=== PATIENT | female | born 1935 | race Caucasian/White ===

== ENCOUNTER 2020-01-26 12:30 | Outpatient (CLI) | payer MEDICARE, SELFPAY ==
[2020-01-26 13:19] LABS: Basophils % 0.5 %; Eosinophils # 0.3 10^3/uL (0.0-0.8); Eosinophils % 4.9 %; Hemoglobin 11.9 g/dL (11.5-15.3); Lymphocytes # 1.3 10^3/uL (0.8-4.8); Lymphocytes % 20.3 %; Mean Corpuscular HGB Conc 31.3 g/dL (30.0-36.0); Mean Corpuscular Hemoglobin 29.2 pg (28.0-34.0); Mean Corpuscular Volume 93.1 fL (81-99); Mean Platelet Volume 10.7 fL (7.4-10.4); Monocytes # 0.5 10^3/uL (0.2-0.9); Monocytes % 8.5 %; Neutrophils # 4.2 10^3/uL (1.8-7.7); Neutrophils % 65.6 %; Nucleated Red Blood Cells % 0 %; Platelet Count 307 10^3/cmm (130-400); Red Blood Count 4.08 10^6/uL (4.1-5.3); Red Cell Distribution Width 13.2 % (12.1-15.1); White Blood Count 6.3 10^3/uL (4.0-10.0)
[2020-01-26 13:38] LABS: Alanine Aminotransferase 10 U/L (0-33); Albumin Level 3.6 g/dL (3.5-5.2); Alkaline Phosphatase 160 IU/L (35-105); Anion Gap 16.7 (5-19); Aspartate Amino Transferase 19 U/L (0-32); Blood Urea Nitrogen 16 mg/dL (8-23); Calcium 8.9 mg/dL (8.5-10.5); Carbon Dioxide 22 mmol/L (22-29); Chloride 106 mmol/L (98-107); Globulin 3.1 g/dL (1.3-4.6); Glucose 89 mg/dL (65-115); Osmolality Calculated 288 mOsm/kg (285-295); Potassium 3.7 mmol/L (3.5-5.1); Sodium 141 mmol/L (136-145); Total Bilirubin 0.5 mg/dL (0.15-1.2); Total Protein 6.7 g/dL (6.6-8.7)
--- NOTE | 2020-01-26 16:59 | ONC FU_ITS ---
Dr. Latham follow up note Patient: Bonnie Pa Unit #: [id number]: 1935 Dicatated By: Roscoe Latham M.D.Date of Visit:Jan 26, 2020 Onc Med Follow-up/Prog Note History of Present Illness: Mrs. Bonnie Pa, is a 84-year-old female who recently experienced some pain in her right breast and also noticed a mass in her right breast. Went to see her primary care physician underwent bilateral mammogram on 05/25/2018 which showed 3.3 x 2.7 x 2.3 cm mass in the retroareolar area which was previously seen on CT scan of chest done on 05/12/2018 subsequently on 06/03/2018 she underwent breast biopsy which confirmed invasive ductal carcinoma with papillary features it was strongly ER/VT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 and on 06/25/2018 she underwent right breast lumpectomy with right sentinel lymph node biopsy which showed invasive ductal carcinoma p T2, pN1a (sn) and MX ER/VT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 margins clear. Oncotype DX score 0 started on Arimidex 1 mg by mouth daily on 07/29/2018, s/p postlumpectomy radiation Chronic urine tract infection, managed by PMD She has completed her postlumpectomy radiation therapy on 10/21/2018 tolerated well, and now tolerating Arimidex well Underwent bilateral diagnostic mammogram on 01/03/2019 in [place] for right breast questionable abnormality and it showed ,other than postoperative changes in the right breast there is no other changes and no change is seen in the left breast. No suspicious mass or calcification seen. Came for follow-up, complaining of progressive shortness of breath, dyspnea on exertion, patient has history of congestive heart failure in the past and now being treated with Lasix but patient take it on as-needed basis and now with progressive lower extremity edema and has not seen cardiology in the recent past. Other than that denies any hemoptysis or hematemesis denies any chest pain or palpitation. Denies any fever chills denies any diarrhea or constipation. Denies any weight loss. Medications: Aspirin 1 Tablet (of 81 mg) Tablet, chewable Oral daily, Levothyroxine Sodium 1 Tablet Oral daily, TraMADol HCl 1 (50 mg) Tablet Oral PRN Allergies: Cefuroxime Axetil, Cipro, Flagyl, Keflex, Macrobid, Penicillins, and Sulfa Antibiotics. Review of Systems: Review of Systems is not available for this patient. Vital Signs: Performed on Jan 26, 2020 14:36 Height - 62.00 in Weight - 170.2 lbs (HIGH) BSA - 1.78 sq.m BMI - 31.13 (HIGH) Temperature - 98.8 F Pulse - 62 /min Respiration - 20 /min BP - 130/65 mm(hg) O2 Sat - 96 % Pain - 0 Performance Status: 1 - No physically strenuous activity, but ambulatory and able to carry out light or sedentary work (e.g. office work, light house work). (ECOG) Physical Examination: Respiratory - Poor air entry, few bibasilar rales, Cardiovascular - Regular rate and rhythm of heart, Gastrointestinal - Abdomen, soft, bowel sounds present, Extremities - 2+ edema bilaterally. Lab/Imaging: Most recent lab results are not available for this patient. Impression: Invasive ductal carcinoma right breast status post lumpectomy with sentinel lymph node biopsy done on 06/25/2018 final pathology report showed pT2, (3.1) pN1a (positive sentinel lymph node with 3 mm microscopic lesion with no extracapsular) MX stage Ib ER positive 96%, VT +97%, HER-2/nellie 1+ , negative Oncotype DX score reported on on 08/16/2018 was 0 started on Arimidex 1 mg by mouth daily for 5 years on 07/29/2018. s/p Postlumpectomy radiation therapy Completed on 10/21/2018 History of bilateral pulmonary embolism diagnosed in 2005 status post anticoagulation for 2 to 3 years History of congestive heart failure with chronic lower extremity edema treated with diuretics Plan: Discussed with patient regarding her labs white blood count 6.3 hemoglobin 11.9 hematocrit 38 platelets 307,000 CMP within normal limits Clinically, patient is doing reasonably well but now concerned about progressive dyspnea on exertion and lower extremity edema, patient has history of congestive heart failure in the past treated with diuretics patient said she take it on as-needed basis and watch her fluid intake. 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 As far as breast cancer is concerned patient has no signs symptoms suggestive of recurrence of disease, tolerating Arimidex well along with vitamin D and calcium supplement. Her lab work-up is within normal range. We will also obtain follow-up mammogram and she will return to clinic after chest x-ray and mammogram. Patient was advised in case she has any worsening of symptoms she need to go to hospital immediately. Signed By: Roscoe Latham M.D. <<Signature on File>>
== END 2020-01-26 12:31 | disposition home or self-care (01) ==
LOC: ONCMED 12:35
PROVIDERS: PCP Family Medicine; Visit Provider Internal Medicine Hematology & Oncology
DX: C50.111 Malignant neoplasm of central portion of right female breast (principal); C77.3 Secondary and unspecified malignant neoplasm of axilla and upper limb lymph nodes; Z17.0 Estrogen receptor positive status [ER+]; R06.00 Dyspnea, unspecified; R60.0 Localized edema; Z86.79 Personal history of other diseases of the circulatory system; Z79.811 Long term (current) use of aromatase inhibitors; Z86.711 Personal history of pulmonary embolism; Z79.01 Long term (current) use of anticoagulants
CPT/HCPCS: 36415; 80053; 85025; 99214

== ENCOUNTER 2020-02-13 08:43 | Outpatient (CLI) | payer MEDICARE, SELFPAY ==
--- NOTE | 2020-02-13 08:49 | MM_ITS ---
WS: [id number] Bilateral diagnostic digital mammogram, 02/13/2020 Clinical Data: HX OF BREAST CA Comparison: 06/03/2018, 05/25/2018. Findings: The 2.9 cm density in the lateral aspect of the right breast is no longer present. There is residual scarring which measures 1.0 x 3.0 cm. There is skin thickening over the right breast which is a possi ble result of therapy. No spiculated masses or clustered calcifications are seen. The left breast is normal and shows fat replacement. The lymph nodes in the right and left axilla are unchanged. MM/[place] [id number] Impression: 1. Probable residual scar in the lateral aspect of the right breast without radha dence of recurrence. 2. Skin thickening of the right breast is result of therapy. 3. Negative left breast. BIRADS: 2-Benign FOLLOW UP: 1 Year Follow-up The CAD lumber checker was used.
--- NOTE | 2020-02-13 09:40 | XR_ITS ---
WS: [id number] PROCEDURE: XR chest 2V* [id number] CLINICAL INFORMATION: BASELINE/PROGRESSIVE SHORTNESS OF BREATH/CHF COMPARISON: None. FINDINGS: Heart: Cardiomegaly. Tortuous thoracic aorta. Lungs: Chronic emphysematous changes. No acute pulmonary infiltrates. Elevation right hemidiaphragm Bones: Thoracic curve convex left. Cholecystectomy clips. XR/XR chest 2V* [id number] IMPRESSION: 1. Chronic emphysematous changes. No acute pulmonary infiltrates. 2. Thoracic scoliosis convex left.
== END 2020-02-13 08:44 | disposition home or self-care (01) ==
LOC: RADSHAW 08:48
PROVIDERS: PCP Family Medicine; Visit Provider Internal Medicine Hematology & Oncology
DX: Z85.3 Personal history of malignant neoplasm of breast (principal); R06.02 Shortness of breath; I50.9 Heart failure, unspecified; M41.84 Other forms of scoliosis, thoracic region
CPT/HCPCS: 71046; 77066; 83880; 85379

== ENCOUNTER 2020-02-16 13:15 | Outpatient (CLI) | payer BC, MEDICARE, SELFPAY ==
--- NOTE | 2020-02-16 14:22 | ONC FU_ITS ---
Dr. Latham follow up note Patient: Bonnie Pa Unit #: [id number]: 1935 Dicatated By: Roscoe Latham M.D.Date of Visit:Feb 16, 2020 Onc Med Follow-up/Prog Note History of Present Illness: Mrs. Bonnie Pa, is a 84-year-old female who recently experienced some pain in her right breast and also noticed a mass in her right breast. Went to see her primary care physician underwent bilateral mammogram on 05/25/2018 which showed 3.3 x 2.7 x 2.3 cm mass in the retroareolar area which was previously seen on CT scan of chest done on 05/12/2018 subsequently on 06/03/2018 she underwent breast biopsy which confirmed invasive ductal carcinoma with papillary features it was strongly ER/ME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 and on 06/25/2018 she underwent right breast lumpectomy with right sentinel lymph node biopsy which showed invasive ductal carcinoma p T2, pN1a (sn) and MX ER/ME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 margins clear. Oncotype DX score 0 started on Arimidex 1 mg by mouth daily on 07/29/2018, s/p postlumpectomy radiation Chronic urine tract infection, managed by PMD She has completed her postlumpectomy radiation therapy on 10/21/2018 tolerated well, and now tolerating Arimidex well Underwent bilateral diagnostic mammogram on 01/03/2019 in [place] for right breast questionable abnormality and it showed ,other than postoperative changes in the right breast there is no other changes and no change is seen in the left breast. No suspicious mass or calcification seen. Mammogram done on February 13, 2020 showed probable scar tissue in the lateral aspect of the right breast without evidence of recurrence. Negative left breast. Chest x-ray done on February 13, 2020 showed chronic emphysematous changes no acute pulmonary infiltrate Came for follow-up, denies any specific complaints except persistent dyspnea on exertion, patient has seen cardiology recently, work-up is in progress and her chest x-ray showed no acute infiltrate but chronic emphysematous changes. Patient denies any fever chills denies any nausea or vomiting denies any chest pain denies any new bony pains. Tolerating Arimidex/vitamin D/calcium well Medications: Anastrozole 1 Tablet (of 1 mg) Oral daily, Aspirin 1 Tablet (of 81 mg) Tablet, chewable Oral daily, Levothyroxine Sodium 1 Tablet Oral daily, TraMADol HCl 1 (50 mg) Tablet Oral PRN Allergies: Cefuroxime Axetil, Cipro, Flagyl, Keflex, Macrobid, Penicillins, and Sulfa Antibiotics. Review of Systems: Review of Systems is not available for this patient. Vital Signs: Performed on Feb 16, 2020 13:49 Height - 62.00 in Weight - 169.4 lbs (LOW) BSA - 1.78 sq.m BMI - 30.98 (HIGH) Temperature - 99.1 F (HIGH) Pulse - 58 /min (LOW) Respiration - 20 /min BP - 131/64 mm(hg) O2 Sat - 97 % Pain - 0 Performance Status: 2 - Ambulatory/capable of all self-care, unable to perform any work activities. Up and about more than 50% of waking hours. (ECOG) Physical Examination: Respiratory - Poor air entry otherwise clear, Cardiovascular - Regular rate and rhythm of heart, Gastrointestinal - Soft, bowel sounds present, Extremities - Trace edema bilaterally. Lab/Imaging: Test performed on Jan 26, 2020 12:55 Sodium 141 mmol/L Potassium 3.7 mmol/L Chloride 106 mmol/L CO2 22 mmol/L Anion Gap 16.7 BUN 16 mg/dL Creatinine 1.0 mg/dL Cr Clearance (Est) 52.86 mL/min Glucose 89 mg/dL Calcium 8.9 mg/dL Protein, Total 6.7 g/dL Albumin 3.6 g/dL Globulin 3.1 g/dL Bilirubin, Total 0.5 mg/dL ALT (SGPT) 10 U/L AST (SGOT) 19 U/L Alkaline Phosphatase 160 IU/L WBC 6.3 10 3/uL RBC 4.08 10 6/uL HGB 11.9 g/dL HCT 38.0 % MCV 93.1 fL MCH 29.2 pg MCHC 31.3 g/dL RDW 13.2 % Platelet Count 307 10 3/cmm MPV 10.7 fL Neutrophils 4.2 10 3/uL Lymphocytes 1.3 10 3/uL Monocytes 0.5 10 3/uL Eosinophils 0.3 10 3/uL Basophils 0.0 10 3/uL Neutrophil % 65.6 % Lymphocyte % 20.3 % Monocyte % 8.5 % Eosinophil % 4.9 % Basophils % 0.5 % NRBC % 0 % Impression: Invasive ductal carcinoma right breast status post lumpectomy with sentinel lymph node biopsy done on 06/25/2018 final pathology report showed pT2, (3.1) pN1a (positive sentinel lymph node with 3 mm microscopic lesion with no extracapsular) MX stage Ib ER positive 96%, ME +97%, HER-2/nellie 1+ , negative Oncotype DX score reported on on 08/16/2018 was 0 started on Arimidex 1 mg by mouth daily for 5 years on 07/29/2018. s/p Postlumpectomy radiation therapy Completed on 10/21/2018 History of bilateral pulmonary embolism diagnosed in 2005 status post anticoagulation for 2 to 3 years History of congestive heart failure with chronic lower extremity edema treated with diuretics Plan: Discussed with patient regarding her chest x-ray report as well as mammogram which was done on February 13, 2020, mammogram was unremarkable except chronic posttreatment change in the right breast and follow-up in 1 year was recommended, chest x-ray showed no acute infiltrates but chronic emphysematous change and cardiomegaly. Patient was referred to cardiology for evaluation of being evaluated for congestive heart failure. As far as breast cancer is concerned, no signs symptom suggestive of recurrence of disease, patient is tolerating Arimidex/vitamin D/calcium well, will continue same and she will return to clinic in 6 months with CBC CMP. Signed By: Roscoe Latham M.D. <<Signature on File>>
== END 2020-02-16 13:16 | disposition home or self-care (01) ==
LOC: ONCMED 13:20
PROVIDERS: PCP Family Medicine; Visit Provider Internal Medicine Hematology & Oncology
DX: C50.011 Malignant neoplasm of nipple and areola, right female breast (principal); I50.9 Heart failure, unspecified; Z17.0 Estrogen receptor positive status [ER+]; Z79.811 Long term (current) use of aromatase inhibitors; Z79.82 Long term (current) use of aspirin; Z92.3 Personal history of irradiation; Z87.440 Personal history of urinary (tract) infections; Z86.711 Personal history of pulmonary embolism
CPT/HCPCS: 99214

== ENCOUNTER 2020-03-06 12:59 | Outpatient (CLI) | payer MEDICARE, SELFPAY ==
--- NOTE | 2020-03-06 13:30 | USCV_ITS ---
Bonnie Pa Age: 84 Gender: F : 1935 Exam Date: 03/06/2020 13:31 Ordering Phys: Yarelis Araiza MD ([email or web address]) Technologist: Roman Martell [place] [facility] [place] Indication: SOB BP: 125 / 75 HR: 67 Rhythm: Sinus Technical Quality: Good MEASUREMENTS (Male / Female) Normal Values 2D ECHO LV Diastolic Diameter PLAX 4.2 cm 4.2 - 5.9 / 3.9 - 5.3 cm LV Systolic Diameter PLAX 2.0 cm IVS Diastolic Thickness 1.1 cm 0.6 - 1.0 / 0.6 - 0.9 cm IVS Systolic Thickness 1.6 cm LVPW Diastolic Thickness 1.2 cm 0.6 - 1.0 / 0.6 - 0.9 cm LVPW Systolic Thickness 1.3 cm LVOT Diameter 2.0 cm LV Ejection Fraction 2D Teich 83.1 % LV Ejection Fraction MOD 2C 69.1 % LV Ejection Fraction 2C AL 69.2 % LA Diameter 4.7 cm LA Width 3.8 cm LA Height 5.1 cm RA Width 3.5 cm RA Height 5.3 cm Aorta at Sinotubular Diameter 0.8 cm M-MODE LV Diastolic Diameter MM 5.5 cm 4.2 - 5.9 / 3.9 - 5.3 cm LV Systolic Diameter MM 4.3 cm LV Ejection Fraction MM Teich 44.4 % IVS Diastolic Thickness MM 1.0 cm 0.6 - 1.0 / 0.6 - 0.9 cm IVS Systolic Thickness MM 1.1 cm LVPW Diastolic Thickness MM 1.2 cm 0.6 - 1.0 / 0.6 - 0.9 cm LVPW Systolic Thickness MM 1.9 cm RV Diastolic Diameter MM 1.5 cm Aortic Annulus Diameter 3.1 cm LA Ao Ratio MM 1.6 MV E Point Septal Separation 1.2 cm DOPPLER AV Peak Velocity 154.0 cm/s LVOT Peak Velocity 104.0 cm/s AV Area Cont Eq vti 2.0 cm squared AV Area Cont Eq pk 2.2 cm squared MV Area PHT 5.0 cm squared Mitral E to A Ratio 0.7 MV E' Velocity 9.0 cm/s Mitral E to MV E' Ratio 8.5 Mitral E to LV E' Lateral Ratio 8.9 Mitral E to LV E' Septal Ratio 8.2 TR Peak Velocity 308.0 cm/s TR Peak Gradient 37.9 mmHg TV Peak E Velocity 145.0 cm/s Right Atrial Pressure 3.0 mmHg Pulmonary Artery Systolic Pressu 40.9 mmHg PV Peak Velocity 120.0 cm/s FINDINGS Left Ventricle Normal left ventricular cavity size. Normal left ventricular systolic function. No regional wall motion abnormalities. Left ventricular ejection fraction is estimated at 60 %. Grade I/IV diastolic dysfunction (abnormal relaxation filling pattern), normal to mildly elevated filling pressures. Right Ventricle The right ventricle is normal in size and function. Moderate pulmonary hypertension, RVSP 40.9 mmHg. Right Atrium The right atrium is normal in size. Left Atrium Moderately increased left atrial size. Mitral Valve Mildly thickened mitral valve. No mitral valve stenosis. Mild mitral valve regurgitation. Aortic Valve Moderate aortic valve calcification. No aortic valve regurgitation. No aortic valve stenosis. Tricuspid Valve Structurally normal tricuspid valve without significant stenosis or regurgitation. Pulmonic Valve Structurally normal pulmonic valve without significant stenosis. There is no pulmonic regurgitation. Pericardium Normal pericardium without effusion. Aorta Normal ascending aorta dimension. CONCLUSIONS 1-Normal left ventricular cavity size. Normal left ventricular systolic function. No regional wall motion abnormalities. Left ventricular ejection fraction is estimated at 60 %. Grade I/IV diastolic dysfunction (abnormal relaxation filling pattern), normal to mildly elevated filling pressures. 2-Moderate aortic valve calcification. No aortic valve regurgitation. No aortic valve stenosis. 3-Mildly thickened mitral valve. No mitral valve stenosis. Mild mitral valve regurgitation. 4-Moderately increased left atrial size. 5-There is no pericardial effusion. 6-The right ventricle is normal in size and function. Moderate pulmonary hypertension, RVSP 40.9 mmHg. 7-There is no pericardial effusion. 8-Right atrial pressure is around 5 mm of mercury. 9-There are no prior echocardiogram studies to compare. Yarelis Araiza MD (Electronically Signed) Final Date: 07 March 2020 19:54 S
--- NOTE | 2020-03-06 14:15 | USCV_ITS ---
Bonnie Pa Age: 84 Gender: F : 1935 Exam Date: 03/06/2020 13:06 Ordering Phys: Yarelis Araiza MD ([email or web address]) Technologist: Dilan Villafuerte [place] [facility] [place]ication: DVT PROCEDURES: Venous duplex imaging was performed in bilateral lower extremities. The following venous structures were evaluated: common femoral vein, profunda vein, proximal portion of the greater saphenous vein, superficial femoral vein, and the popliteal vein. In addition, the posterior tibial and peroneal trunk were evaluated. Serial compression, augmentation maneuvers, and spectral Doppler flow evaluation were performed. FINDINGS: There is no DVT present bilaterally. There is a partial clot noted in the right gsv below the knee and at [place]. Partial contraction of thrombus. No evidence of thrombus noted within any other vessel examined today. CONCLUSIONS There is evidence of partial right lower extremity superficial vein thrombosis. Maybe subacute as thrombus appears retraced. No DVT bilateral lower extremities. Ring Rolling Machine Operator attempted to call report without success at time of exam. Dr. Maddi Nunez DO (Electronically Signed) Final Date: 06 March 2020 14:05 S
== END 2020-03-06 13:00 | disposition home or self-care (01) ==
LOC: US 13:01
PROVIDERS: PCP Family Medicine; Visit Provider Internal Medicine Cardiovascular Disease
DX: I50.9 Heart failure, unspecified (principal); I82.409 Acute embolism and thrombosis of unspecified deep veins of unspecified lower extremity; R06.02 Shortness of breath; I08.0 Rheumatic disorders of both mitral and aortic valves; I27.20 Pulmonary hypertension, unspecified
CPT/HCPCS: 93306; 93970

== ENCOUNTER → 2020-04-16 09:00 | Outpatient (BNVA) | payer MEDICARE, SELFPAY | PROVIDERS: PCP Family Medicine; Visit Provider Internal Medicine | DX: Z11.59 Encounter for screening for other viral diseases (principal); R06.02 Shortness of breath | CPT/HCPCS: 87635 ==

== ENCOUNTER 2020-04-18 10:46 | Outpatient (CLI) | payer MEDICARE, SELFPAY ==
--- NOTE | 2020-04-18 10:54 | CT_ITS ---
WS: [id number] CT CHEST WITHOUT INTRAVENOUS CONTRAST HISTORY: exertional shortness of breath, s/p radiation therapy, history of breast cancer. TECHNIQUE: Contiguous 5 mm axial imaging performed on the thorax. Coronal and sagittal reformats are submitted. All CT scans at [facility] use at least one of these dose optimization techniq ues: automated exposure control; mA and/or kV adjustment per patient size (includes targeted exams wh ere dose is matched to clinical indication); or iterative reconstruction. CONTRAST: None DLP: 453.12 mGy.cm COMPARISON: No similar studies. Chest radiograph 02/13/2020 Lungs and central airway: Mild pulmonary hyperexpansion. There is mild biapical pleural thickening an d scarring. Subpleural minimal distal airways thickening the RIGHT upper lobe. Groundglass attenuatio n with a few central horn solid nodules at the RIGHT middle lobe with atelectasis. Additional groundg lass attenuation in the superior segment LEFT lower lobe. Pleura: Normal. No pleural effusion. Heart and pericardium: Moderate enlargement of the cardiac chambers. No pericardial effusion. Mediastinum and fanny: No mediastinum or hilar adenopathy. Vessels: Mild atherosclerosis and ectasia aorta. Pulmonary artery is top normal size. Chest wall and lower neck: Linear scar in the RIGHT breast. Upper abdomen: Small hiatal hernia. Prior cholecystectomy. Parapelvic cyst superior LEFT kidney. No a drenal mass. Osseous structures: No osteoblastic or osteolytic disease. CT/CT chest wo con [id number] IMPRESSION: 1. Mixture of mild groundglass and mixed consolidations in the RIGHT upper, RI GHT middle and LEFT lower lobes. End airways endobronchial disease or viral pne umonitis should be considered as etiologies. 2. No evidence for metastatic disease. 3. Moderate cardiac enlargement. 4. Atherosclerosis aorta. 5. Prior cholecystectomy.
--- NOTE | 2020-04-18 11:40 | PFTS_ITS ---
Date of Study:04/18/20 Date of Dictation: MECHANICS: Forced vital capacity (FVC) is normal. Forced expiratory volume in one second (FEV1) is normal. FEV1/FVC is normal. FLOW VOLUME LOOP: Mild scooping at lower lung volumes. LUNG VOLUMES: Not measured DIFFUSING CAPACITY FOR CARBON MONOXIDE: Normal INTERPRETATION: The postbronchodilator spirometry is normal. There is significant postbronchodilator response. Lung volumes are not measured. Gas exchange (DLCO) is normal. MTDD
[2020-04-18 15:05] VITALS: O2SAT 93; O2SAT 98
== END 2020-04-18 10:47 | disposition home or self-care (01) ==
LOC: RT 10:48
PROVIDERS: PCP Family Medicine; Visit Provider Internal Medicine Pulmonary Disease
DX: J43.9 Emphysema, unspecified (principal); R06.02 Shortness of breath; Z85.3 Personal history of malignant neoplasm of breast; I70.0 Atherosclerosis of aorta; I51.7 Cardiomegaly
CPT/HCPCS: 71250; 94060; 94726; J7611

== ENCOUNTER → 2020-07-06 09:18 | Outpatient (BNVA) | payer MEDICARE, SELFPAY | PROVIDERS: PCP Family Medicine; Visit Provider Nurse Practitioner Family | DX: Z20.828 Contact with and (suspected) exposure to other viral communicable diseases (principal); J06.9 Acute upper respiratory infection, unspecified | CPT/HCPCS: 87635 ==

== ENCOUNTER 2020-07-12 07:25 | Outpatient (CLI) | payer MEDICARE, SELFPAY ==
[2020-07-12 07:32] VITALS: BMI 28.3
--- NOTE | 2020-07-12 07:56 | ECG_ITS ---
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 The perfusion scan will be documented separately. DATA: Baseline heart rate was 59 beats per minute. Baseline blood pressure was 159/97 millimeters of mercury. Target heart rate was 137. Maximum heart rate achieved was 74. which was 54 % of the predicted target heart rate. Maximum blood pressure was 161/97 millimeters of mercury. The reason for ending the test was completion of the protocol. The patient did not experience any symptoms. ELECTROCARDIOGRAM: BASELINE: Sinus bradycardia. Normal axis. Otherwise, no ST-T changes suggestive of ischemia noted. No arrhythmia noted. EXERCISE: After Lexiscan injection, no ST-T changes suggestive of ischemic noted. No arrhythmia noted. CONCLUSION: Please note due to baseline abnormality of the EKG specificity and sensitivity of the EKG portion of LexiScan MIBI stress test will be low 1. EKG not suggestive of ischemia 2. Lexiscan injection unremarkable. 3. Perfusion scan will be documented separately. Electronically Signed On 07-12-2020 18:26:35 ALTO SINGER by ANALI GOMEZ [email or web address]
--- NOTE | 2020-07-12 07:56 | NMCV_ITS ---
NM katie perf SPECT r/s* [id number] Bonnie Pa Age: 85 Gender: F : 1935 Exam Date: 07/12/2020 08:19 Ordering Phys: Rolo Reynolds M.D ([email or web address]) Technologist: REECE Roman Exam Location: [facility] Indications: SOB STRESS TEST [facility] IMAGE PROTOCOL Rest/Stress 1 Lexiscan Day Radiopharmaceutical Dose (mCi) Administration Site Administered by Rest: Tc-99m 10.8 IV REECE Roman Sestamibi Stress:Tc-99m 32.3 IV REECE Roman Sestamibi Rest: 12-Jul-2020 60 Discovery 630 Stress: 12-Jul-2020 45 Discovery 630 0.4mg Lexiscan. Images obtained in supine and prone position. SPECT RESULTS Technical Quality: Good Raw Data Analysis: Normal Image Corrections: No attenuation or motion correction applied Summed Stress Score: 11 Summed Rest Score: 3 Summed Difference Score: 8 PERFUSION FINDINGS Small size perfusion abnormality of mild severity of apical inferior and apical lateral james on rest images with decreased tracer uptake in basal to mid inferolateral, mid inferior and apical lateral james on supine stress images. However on prone stress images there is somewhat improved tracer uptake in the basal inferolateral wall. FUNCTIONAL RESULTS (calculated via Gated SPECT) Stress Image LV EF (%): 69 Stress EDV (mL):68 TID: 0.82 Stress ESV (mL):21 FUNCTIONAL FINDINGS: The left ventricle is normal in size. Transient Ischemia Dilatation of 0.82. There is normal left ventricular systolic function. The left ventricular ejection fraction is normal with a value of 69%. There is normal left ventricular wall thickening. Normal end-diastolic and end-systolic volumes IMPRESSIONS 1. Small sized perfusion abnormality of mild severity of apical inferior and apical lateral james with reversibility noted in mid inferior, mid inferolateral and apical lateral james. This may represent small area of ischemia in circumflex/right coronary artery territory. 2. Overall left ventricular systolic function is normal with regional wall motion abnormalities. 3. The left ventricular ejection fraction is normal with a value of 69%. 4. No prior similar studies to compare. Micki Ring MD (Electronically Signed) Final Date: 17 July 2020 13:00 S
[2020-07-12] MEDS: regadenoson 0.4 Mg/5 ml Syringe IVP (10:33)
[2020-07-12 10:43] VITALS: BP 161/83; PULSE 59
== END 2020-07-12 07:26 | disposition home or self-care (01) ==
PROVIDERS: PCP Family Medicine; Visit Provider Internal Medicine Cardiovascular Disease
DX: R06.02 Shortness of breath (principal)
CPT/HCPCS: 78452; A9500; J2785

== ENCOUNTER 2020-08-24 12:44 | Outpatient (CLI) | payer MEDICARE, SELFPAY ==
[2020-08-24 13:22] LABS: Basophils % 0.3 %; Eosinophils # 0.2 10^3/uL (0.0-0.8); Eosinophils % 3.1 %; Hematocrit 42.2 % (37.0-47.0); Hemoglobin 13.2 g/dL (11.5-15.3); Lymphocytes # 1.4 10^3/uL (0.8-4.8); Lymphocytes % 19.8 %; Mean Corpuscular HGB Conc 31.3 g/dL (30.0-36.0); Mean Corpuscular Hemoglobin 29.3 pg (28.0-34.0); Mean Corpuscular Volume 93.8 fL (81-99); Mean Platelet Volume 10.3 fL (7.4-10.4); Monocytes # 0.5 10^3/uL (0.2-0.9); Monocytes % 7.8 %; Neutrophils # 4.68 10^3/uL (1.8-7.7); Neutrophils % 68.7 %; Nucleated Red Blood Cells % 0 %; Platelet Count 311 10^3/cmm (130-400); Red Cell Distribution Width 12.9 % (12.1-15.1); White Blood Count 6.8 10^3/uL (4.0-10.0)
[2020-08-24 13:42] LABS: Alanine Aminotransferase 9 U/L (0-33); Albumin Level 3.5 g/dL (3.5-5.2); Alkaline Phosphatase 191 IU/L (35-105); Aspartate Amino Transferase 19 U/L (0-32); Blood Urea Nitrogen 16 mg/dL (8-23); Calcium 9.2 mg/dL (8.5-10.5); Carbon Dioxide 24 mmol/L (22-29); Chloride 106 mmol/L (98-107); Globulin 3.5 g/dL (1.3-4.6); Glucose 103 mg/dL (65-115); Osmolality Calculated 293 mOsm/kg (285-295); Sodium 141 mmol/L (136-145); Total Bilirubin 0.5 mg/dL (0.15-1.2)
[2020-08-24 13:44] LABS: Anion Gap 15.1 (5-19); Potassium 4.1 mmol/L (3.5-5.1)
== END 2020-08-24 12:45 | disposition home or self-care (01) ==
PROVIDERS: PCP Family Medicine; Visit Provider Internal Medicine Hematology & Oncology
DX: C50.811 Malignant neoplasm of overlapping sites of right female breast (principal); C77.3 Secondary and unspecified malignant neoplasm of axilla and upper limb lymph nodes
CPT/HCPCS: 36415; 80053; 85025

== ENCOUNTER 2020-09-03 05:38 | Outpatient (CLI) | payer MEDICARE, SELFPAY ==
--- NOTE | 2020-09-04 09:16 | ONC FU_ITS ---
Dr. Latham follow up note Patient: Bonnie Pa Unit #: [id number]: 1935 Dicatated By: Roscoe Latham M.D.Date of Visit:Sep 03, 2020 Onc Med Follow-up/Prog Note History of Present Illness: Mrs. Bonnie Pa, is a 85-year-old female who recently experienced some pain in her right breast and also noticed a mass in her right breast. Went to see her primary care physician underwent bilateral mammogram on 05/25/2018 which showed 3.3 x 2.7 x 2.3 cm mass in the retroareolar area which was previously seen on CT scan of chest done on 05/12/2018 subsequently on 06/03/2018 she underwent breast biopsy which confirmed invasive ductal carcinoma with papillary features it was strongly ER/HI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 and on 06/25/2018 she underwent right breast lumpectomy with right sentinel lymph node biopsy which showed invasive ductal carcinoma p T2, pN1a (sn) and MX ER/HI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 margins clear. Oncotype DX score 0 started on Arimidex 1 mg by mouth daily on 07/29/2018, s/p postlumpectomy radiation Chronic urine tract infection, managed by PMD She has completed her postlumpectomy radiation therapy on 10/21/2018 tolerated well, and now tolerating Arimidex well Underwent bilateral diagnostic mammogram on 01/03/2019 in [place] for right breast questionable abnormality and it showed ,other than postoperative changes in the right breast there is no other changes and no change is seen in the left breast. No suspicious mass or calcification seen. Mammogram done on February 13, 2020 showed probable scar tissue in the lateral aspect of the right breast without evidence of recurrence. Negative left breast. Chest x-ray done on February 13, 2020 showed chronic emphysematous changes no acute pulmonary infiltrate Came for follow-up, denies any specific complaints, no fever chills, no nausea or vomiting, no diarrhea or constipation,, no new bony pains, no weight loss, appetite is good, occasionally hot flashes otherwise tolerating Arimidex well. As per patient she is being evaluated for coronary artery disease and she was told by Dr. Araiza that she may need coronary artery stent. Medications: Anastrozole 1 Tablet (of 1 mg) Oral daily, Aspirin 1 Tablet (of 81 mg) Tablet, chewable Oral daily, Levothyroxine Sodium 1 Tablet Oral daily, TraMADol HCl 1 (50 mg) Tablet Oral PRN Allergies: Cefuroxime Axetil, Cipro, Flagyl, Keflex, Macrobid, Penicillins, and Sulfa Antibiotics. Review of Systems: Review of Systems is not available for this patient. Vital Signs: Performed on Sep 03, 2020 10:10 Height - 62.00 in Weight - 175.8 lbs (HIGH) BSA - 1.81 sq.m BMI - 32.15 (HIGH) Temperature - 96.9 F (LOW) Pulse - 55 /min (LOW) Respiration - 18 /min BP - 142/74 mm(hg) (HIGH) O2 Sat - 95 % (LOW) Pain - 0 Fatigue - 9 Performance Status: 1 - No physically strenuous activity, but ambulatory and able to carry out light or sedentary work (e.g. office work, light house work). (ECOG) Physical Examination: Respiratory - Lungs are clear to auscultation, Cardiovascular - Regular rate and rhythm of heart, Gastrointestinal - Soft, bowel sounds present, Extremities - No visible edema or rash. Lab/Imaging: Most recent lab results are not available for this patient. Impression: Invasive ductal carcinoma right breast status post lumpectomy with sentinel lymph node biopsy done on 06/25/2018 final pathology report showed pT2, (3.1) pN1a (positive sentinel lymph node with 3 mm microscopic lesion with no extracapsular) MX stage Ib ER positive 96%, HI +97%, HER-2/nellie 1+ , negative Oncotype DX score reported on on 08/16/2018 was 0 started on Arimidex 1 mg by mouth daily for 5 years on 07/29/2018. s/p Postlumpectomy radiation therapy Completed on 10/21/2018 History of bilateral pulmonary embolism diagnosed in 2005 status post anticoagulation for 2 to 3 years History of congestive heart failure with chronic lower extremity edema treated with diuretics Plan: Discussed with patient regarding her labs white blood count 6.8 hemoglobin 13.2 hematocrit 42.3 platelets 311,000, CMP within normal limits Clinically, patient doing well with no new signs symptoms history of disease progression, tolerating daily Arimidex with vitamin D and calcium well, will continue to monitor and she will return to clinic in 6 months with follow-up mammogram Signed By: Roscoe Latham M.D. <<Signature on File>>
== END 2020-09-03 05:39 | disposition home or self-care (01) ==
LOC: ONCMED 05:40
PROVIDERS: PCP Family Medicine; Visit Provider Internal Medicine Hematology & Oncology
DX: C50.811 Malignant neoplasm of overlapping sites of right female breast (principal); C77.3 Secondary and unspecified malignant neoplasm of axilla and upper limb lymph nodes; Z17.0 Estrogen receptor positive status [ER+]; Z79.811 Long term (current) use of aromatase inhibitors; Z86.711 Personal history of pulmonary embolism; Z92.3 Personal history of irradiation
CPT/HCPCS: 99214

== ENCOUNTER → 2020-11-01 14:27 | Outpatient (BNVA) | payer MEDICARE, SELFPAY | PROVIDERS: PCP Family Medicine; Visit Provider Internal Medicine Cardiovascular Disease | DX: R06.02 Shortness of breath (principal); R07.2 Precordial pain; R94.39 Abnormal result of other cardiovascular function study | CPT/HCPCS: 80048; 85025; 85610; 87635 ==

== ENCOUNTER → 2020-11-02 00:01 | Outpatient (BNVA) | payer MEDICARE, SELFPAY | PROVIDERS: PCP Family Medicine; Visit Provider Internal Medicine Cardiovascular Disease | DX: R06.02 Shortness of breath (principal); R07.2 Precordial pain; R94.39 Abnormal result of other cardiovascular function study | CPT/HCPCS: 87635 ==

== ENCOUNTER 2020-11-05 07:27 | Emergency (ER) | payer MEDICARE, SELFPAY ==
[2020-11-05 07:32] VITALS: BP 194/80; PULSE 58; RESP 16; TEMP 36.4; O2SAT 95; BMI 28.3
--- NOTE | 2020-11-05 07:37 | XRR_ITS ---
PROCEDURE INFORMATION: Exam: XR Nasal Bones Exam date and time: 11/05/2020 8:07 AM Age: 85 years old Clinical indication: Pain and injury or trauma; Nose pain; Blunt trauma (contusions or hematomas); Injury date: 11/05/20; Injury details: Fall in parking lot; Additional info: Fall, pain TECHNIQUE: Imaging protocol: XR of the nasal bones. Views: De, bilateral lateral; 3 views COMPARISON: No relevant prior studies available. FINDINGS: Sinuses: Well aerated. No opacification. Nasal cavity/Septum: No nasal septal hematoma. Bones/joints: Nondisplaced nasal bone tip fracture. Soft tissues: Anterior nasal soft tissue swelling. XR/XR nasal bones min 3V [id number] IMPRESSION: Nondisplaced nasal bone tip fracture.
--- NOTE | 2020-11-05 07:55 | W.ED.FALL ---
HPI - Fall General: Chief Complaint: Fall Stated Complaint: fall Time Seen by Provider: 11/05/20 07:30 History of Present Illness: HPI Narrative: 85-year-old female who stumbled while coming into the hospital today fell forward and hit her nose. She denies any other injuries. She did have a little epistaxis initially that is already stopped by the time she arrived here. She was coming into the hospital to have an angiogram done she denies any chest pain or palpitations at the time I see her in the emergency room she said she feels fine. She has had multiple falls recently she is usually she falls backwards and think she either tripped on something or stumbled. She denies lightheadedness or dizziness. MD complaint: fall Onset (ago): minute(s) Fall from: standing Fall witnessed: yes, by family Place fall occurred: other (At hospital) Loss of consciousness: None Prolonged down time: no Symptoms prior to fall: none Context: tripped/slipped Severity: mild Quality: aching Associated symptoms-after fall: Denies abdominal pain, chest pain, confusion, difficulty walking, headache(s), hematuria, lightheadedness, neck pain, numbness, short of breath, vertigo or weakness Review of Systems Const: Denies: fever(s), chills, body aches, change in appetite, fatigue or malaise ENMT: Denies: throat pain, ear or mastoid pain, nasal discharge or nasal congestion Card: Denies: lightheadedness Resp: Denies: dyspnea, productive cough or non-productive cough GI: Denies: abdominal pain : Denies: hematuria Musc: Denies: neck pain Skin/Breast: Denies: rash or pruritus Neuro: Denies: headache(s), difficulty walking, vertigo or confusion PFS ED PFSH: Medical History Congestive heart failure History of breast cancer History of pulmonary embolism Lower extremity edema Shortness of Breath Family History Mother CAD (coronary artery disease) Sister Cancer Son Myocardial infarction Other Diabetes Social History Smoking and tobacco status: never smoked Second hand smoke exposure: Yes Smoking risk assessment/counseling performed?: Yes Alcohol intake: never Caregiver/support person: Yes Lives independently: Yes Household members: family Marital status: / Current occupational status: retired Pets and animals: Yes History of recent travel: No Current gender identity: Female Physical Exam Const: COMMON NORMALS: no acute distress GENERAL APPEARANCE: cooperative and comfortable ORIENTATION/CONSCIOUSNESS: Yes awake, Yes oriented to person, Yes oriented to place and Yes oriented to time HENMT: COMMON NORMALS: normocephalic, atraumatic, hearing grossly normal bilaterally, external ears normal, EAC's normal, TM's normal bilaterally, Normal nasal mucous membranes and turbinates present, moist oral mucous membranes and oropharynx normal HEAD & SCALP: normocephalic and atraumatic NOSE: Normal nasal mucous membranes and turbinates present EXTERNAL EAR: Yes external ears normal EXTERNAL AUDITORY CANAL: EAC's normal TYMPANIC MEMBRANE: TM's normal bilaterally Eye: COMMON NORMALS: Equal, round and reactive pupils present, EOMs intact bilaterally, conjunctivae normal and no scleral icterus CONJUNCTIVA: Yes conjunctivae normal PUPIL: Yes Equal, round and reactive pupils present Neck/C-Spine: COMMON NORMALS: full ROM, no lymphadenopathy, supple and no JVD OTHER: Spine cleared clinically Resp: COMMON NORMALS: normal respiratory effort, No retractions, No use of accessory muscles and clear to auscultation bilaterally AUSCULTATION: clear to auscultation bilaterally Cardio: COMMON NORMALS: no JVD, regular rate, regular rhythm and No murmurs present (Cardio) RATE: regular rate RHYTHM: regular rhythm GI: COMMON NORMALS: Soft to palpation and No hepatosplenomegaly present AUSCULTATION: Yes normoactive bowel sounds PALPATION: Yes Soft to palpation, No Tenderness to palpation present (GI), No Guarding due to palpation present (GI) and Yes No hepatosplenomegaly present Extremity: COMMON NORMALS: normal to inspection, capillary refill normal, no clubbing, cyanosis or edema, no calf tenderness and no pedal edema Neuro: SENSORIUM/ORIENTATION: Yes oriented to person, Yes oriented to place and Yes oriented to time Skin: COMMON NORMALS: no rashes or lesions noted GENERAL SKIN EXAM: no rashes or lesions noted Course Vital Signs: Vital signs: Vital Signs Temperature 97.5 F L 11/05/20 07:32 Pulse Rate 58 L 11/05/20 07:32 Respiratory Rate 16 11/05/20 07:32 Blood Pressure 194/80 11/05/20 07:32 Pulse Oximetry 95 11/05/20 07:32 MDM - Fall MDM Narrative: Medical decision making narrative: Mechanical fall. Incidental finding of minor nasal bone fracture with no deviation no deformity.. Patient was scheduled for a angiogram today but it is being rescheduled she had some epistaxis with the fall and she will need heparin for the angiogram which will create issues she will have to call and talk to Dr. Romero to get this rescheduled through his office I did discuss it with him today on the phone. Additionally her hypokalemia was treated with oral Lab Data: Labs: Lab Results 11/05/20 11/05/20 Range/Units 07:49 07:49 WBC 5.8 (4.0-10.0) 10^3/ uL RBC 4.66 (4.1-5.3) 10^6/u L Hgb 13.7 (11.5-15.3) g/dL Hct 43.0 (37.0-47.0) % MCV 92.3 (81-99) fL MCH 29.4 (28.0-34.0) pg MCHC 31.9 (30.0-36.0) g/dL RDW 13.2 (12.1-15.1) % Plt Count 331 (130-400) 10^3/c mm MPV 10.3 (7.4-10.4) fL Neut % (Auto) 69.6 % Lymph % (Auto) 17.5 % [place] % (Auto) 7.2 % Eos % (Auto) 5.5 % Baso % (Auto) 0.0 % Neut # (Auto) 4.07 (1.8-7.7) 10^3/u L Lymph # (Auto) 1.0 (0.8-4.8) 10^3/u L [place] # (Auto) 0.4 (0.2-0.9) 10^3/u L Eos # (Auto) 0.3 (0.0-0.8) 10^3/u L Baso # (Auto) 0.0 (0.0-0.1) 10^3/u L Nucleated RBC % (a uto) 0 % Nucleated RBCs # 0.0 /100WBC Sodium 142 (136-145) mmol/L Potassium 3.3 L (3.5-5.1) mmol/L Chloride 106 (98-107) mmol/L Carbon Dioxide 25 (22-29) mmol/L Anion Gap 14.3 (5-19) BUN 16 (8-23) mg/dL Creatinine 1.0 H (0.5-0.9) mg/dL GFR Calculation Not Reportable Glucose 118 H (65-115) mg/dL Calculated Osmolal ity 296 H (285-295) mOsm/k g Calcium 9.2 (8.5-10.5) mg/dL Discharge Plan Discharge Patient Disposition: Home Clinical Impression: Fall (on) (from) other stairs and steps, initial encounter, Hypokalemia, Epistaxis, Fracture of nasal bone Condition: Stable Prescriptions: No Action aspirin 325 mg tablet 325 mg PO DAILY RF: 0 tramadol 50 mg tablet 50 mg PO DAILY PRNRF: 0 levothyroxine 75 mcg capsule 75 mcg PO DAILY RF: 0 anastrozole 1 mg tablet 1 mg PO DAILY RF: 0 atorvastatin 10 mg tablet 10 mg PO DAILY RF: 0 Anoro Ellipta 62.5-25 mcg/actuation blister with device 1 inh INHALATION DAILY Qty: 14 RF: 5 hydrochlorothiazide 12.5 mg capsule 12.5 mg PO DAILY RF: 0 isosorbide mononitrate 30 mg tablet extended release 24 hr 15 mg PO BID Qty: 90 RF: 3 furosemide [Lasix] 20 mg tablet 20 mg PO DAILY PRN (Reason: edema) Qty: 30 RF: 5 potassium chloride 10 mEq capsule, extended release 10 meq PO DAILY PRN (Reason: replacement therapy) Qty: 30 RF: 5 Discharge Orders: Discharge ED (Routine); Ordered 11/05/20 Ordered By: Jaciel Chavis Referrals: Domingo Bowser [Primary Care Provider] - Discharge Diet: Usual diet Discharge Activity: Resume usual activity Patient Instructions: Opioid Safety Activity Restrictions/Additional Instructions: All Dr. Romero's office to reschedule your angiogram. Coding Level of Care Code ED Sales And Marketing Representative for Selvin Broussard NIH stroke score NIHSS Level Of Consciousness - 1a: 0 Level Of Consciousness Questions - 1b: Both Correct Level Of Consciousness Commands - 1c: Both Correct Best Gaze - 2: Normal Visual Hu - 3: No Visual Loss Facial Palsy - 4: Normal Motor Arm Right - 5: No Drift Motor Arm Left - 5: No Drift Motor Leg Right - 6: No Drift Motor Leg Left - 6: No Drift Limb Ataxia - 7: Absent Sensory - 8: Normal Best Language - 9: No Aphasia Dysarthia - 10: Normal Extinction And Inattention - 11: 0 Score Total Score: 0
[2020-11-05 08:18] LABS: Eosinophils # 0.3 10^3/uL (0.0-0.8); Eosinophils % 5.5 %; Hemoglobin 13.7 g/dL (11.5-15.3); Lymphocytes % 17.5 %; Mean Corpuscular HGB Conc 31.9 g/dL (30.0-36.0); Mean Corpuscular Hemoglobin 29.4 pg (28.0-34.0); Mean Corpuscular Volume 92.3 fL (81-99); Mean Platelet Volume 10.3 fL (7.4-10.4); Monocytes # 0.4 10^3/uL (0.2-0.9); Monocytes % 7.2 %; Neutrophils # 4.07 10^3/uL (1.8-7.7); Neutrophils % 69.6 %; Nucleated Red Blood Cells % 0 %; Platelet Count 331 10^3/cmm (130-400); Red Blood Count 4.66 10^6/uL (4.1-5.3); Red Cell Distribution Width 13.2 % (12.1-15.1); White Blood Count 5.8 10^3/uL (4.0-10.0)
[2020-11-05 08:36] LABS: Anion Gap 14.3 (5-19); Blood Urea Nitrogen 16 mg/dL (8-23); Calcium 9.2 mg/dL (8.5-10.5); Carbon Dioxide 25 mmol/L (22-29); Chloride 106 mmol/L (98-107); Glucose 118 mg/dL (65-115); Osmolality Calculated 296 mOsm/kg (285-295); Potassium 3.3 mmol/L (3.5-5.1); Sodium 142 mmol/L (136-145)
[2020-11-05] MEDS: potassium chloride oral liq 20 mEq/15 mL UDC 40 MEQ PO (10:06)
[2020-11-05 10:07] VITALS: BP 151/79; PULSE 58; RESP 20; TEMP 36.8; O2SAT 93
== END 2020-11-05 10:09 | disposition home or self-care (01) ==
PROVIDERS: Emergency Provider Family Medicine; PCP Family Medicine
DX: S02.2XXA Fracture of nasal bones, initial encounter for closed fracture (principal); R04.0 Epistaxis; E87.6 Hypokalemia; Z79.82 Long term (current) use of aspirin; I50.9 Heart failure, unspecified; Z85.3 Personal history of malignant neoplasm of breast; Z77.22 Contact with and (suspected) exposure to environmental tobacco smoke (acute) (chronic); W01.198A Fall on same level from slipping, tripping and stumbling with subsequent striking against other object, initial encounter; Y92.239 Unspecified place in hospital as the place of occurrence of the external cause
CPT/HCPCS: 70160; 80048; 85025; 99283

== ENCOUNTER 2020-11-13 08:55 | Day surgery (SDC) | payer MEDICARE, SELFPAY ==
[2020-11-13] VITALS (16 sets, daily range): BP systolic 114–181; BP diastolic 60–87; PULSE 56–78; RESP 16–18; TEMP 36.6–36.7; O2SAT 92–96; BMI 31.1
--- NOTE | 2020-11-13 09:00 | XACV_ITS ---
Ht: 160 cm Wt: 80 kg BSA: 1.91 m2 Gender: Female : 1935 Any Known Allergies: Other Exam Priority: Routine Procedure(s): Procedure Description: Diagnostic procedure Procedure Description: Left Heart Catheterization Procedure Description: Right Heart Catheterization Procedure Description: Left ventriculography Procedure Description: O2 saturation Procedure Description: Coronary Angiography Diagnostic Cath Status: Elective Diagnostic Findings * No significant disease noted in the Left Main, LAD, Circumflex, or RCA coronary arteries. * Coronary angiography shows right dominance. Conclusions 1. Right heart cath:RA mean 9 mmHgRV 34/-1PA mean 23mmHgPulmonary capillary wedge pressure. 2. No significant disease noted in the Left Main, LAD, Circumflex, or RCA coronary arteries. 3. Normal left ventricular systolic function. Ejection fraction of 50%. Recommendations * Usual post-cath care. Diagnostic RX Recommendation: medical therapy and/or counseling Ventriculography Ejection Fraction: 50.0 % Pressures Phase:Rest AO : 142 / 60 ( 93 ) @ 6:46:00 AM 161 / 69 ( 104 ) @ 6:49:00 AM 146 / 63 ( 92 ) @ 6:58:00 AM 142 / 63 ( 94 ) @ 6:58:00 AM LV : 155 / -8 / @ 6:55:00 AM 149 / -10 / @ 6:58:00 AM 147 / -11 / @ 6:58:00 AM RV : 34 / -1 / @ 6:39:00 AM PA : 38 / 13 ( 23 ) @ 6:38:00 AM RA : a wave = v wave = mean = 9 @ 6:42:00 AM O2 Content Phase:Rest PA : O2 Content O2: 64.3 @ 6:46:00 AM Saturations Phase:Rest AO : 90 @ 6:58:00 AM RA : 71 @ 6:58:00 AM RV : 63 @ 6:49:00 AM PA : 64 @ 6:46:00 AM Valves Phase:DefaultPhase AV : 0.0 @ 12:17:23 PM AV Mean Gradient: 0.0 @ 12:17:23 PM 0.0 @ 12:17:23 PM Clinical Evaluation EBL: 5mL-10mL Procedural Details Procedure Consent Obtained. Pre-Procedure Time Out. Identified patient by full name and date of as verbalized by the patient/guarantor. Does the consent match the physician's order: Yes. Accurate & Complete Informed Consent: Yes. Inpatient/Outpatient History & Physical on Chart: Yes. If H&P is completed, is and addenduem needed: No; If yes, is the addendum complete: N/A. Visualize and Verify Site with Patient/Guarantor: N/A. Relevant Radiology Images available: N/A. Pre-op teaching completed and patient verbalized understanding. The risks, benefits, and alternatives of sedation and/or procedure were discussed by physician. The patient agrees to continue. Procedure started. [facility] Clinical Fraility Score: 4: Vulnerable. Cad Design Engineer Indications: Other-abnormal stress test. Chest Pain Symptom Assessment: Atypical Angina. Cardiovascular Instability: No. Correct patient, site and procedure confirmed by cath team. PERRLA. Strong, equal hand data analysis assistant bilaterally. Lungs clear x 5 lobes. IV Site on Arrival: 20 gauge in the left anticubital. IV Fluids: 0.9% NaCl at KVO. 0 mL infused prior to wood and wood products labourer. Pre Procedural Pulses: bilateral dorsalis pedis was 2+. Pre Procedural Pulses: bilateral posterior tibial was 1+. Pre Procedural Pulses: right radial was 2+. Physician arrived. bilateral groins was prepped with chloroprep then draped in the usual sterile fashion. Baseline sample Acquired. HR: 56 BPM. Equipment: 6F - Femoral. Cardiac Cath Pack. ACIST Manifold Kit Model BT 2000. Heparinized Saline (2 units/mL), 1000 mL bag. Kit, Micropuncture. Physician arrived. Physician scrubbed in. Immediate Pre-Procedure Time Out. Correct Patient: Yes; Correct Procedure: Yes; Correct Site: Yes; Correct Patient Position: Yes; Correct Supplies: Yes; Dried Flammable Prep: Yes; Blood Products Available: N/A;. Lidocaine 1% infiltrated to the right groin. Venous access obtained with a micropuncture set. Arterial access obtained with micropuncture set. Wire and needle out. Arterial access obtained with micropuncture set. Cocoa-Faith MON catheter inserted through venous sheath. Cocoa-Faith out. A 5 tajik JL4 catheter in over wire through arterial sheath. Multiple views taken of left coronary artery. Catheter removed over the standard wire. A 5 tajik JR4 catheter in over wire. Multiple views taken of right coronary artery. Catheter removed over the standard wire. A 5 tajik Angled Pig catheter in over wire. EDP Sample taken: LV 155/-9,15; HR: 75 BPM; SpO2: 94%. LV gram performed in SEARS @ 10 mL/second for a total of 30 mL. EDP Sample taken: LV 149/-11,16; HR: 66 BPM; SpO2: 88%. Pullback taken: LV 147/-12,15; AO 146/63(92); Mean: 0mmHg, Peak to Peak: 0mmHg, SEP: 5sec/min; HR: 67 BPM; SpO2: 87%. Catheter removed over the standard wire. Hand injection to evaluate sheath position. Physician scrubbed out. A Manual Compression was successful obtaining hemostatsis at the Right Femoral artery insertion site. Arterial Sheath(s) removed and manual pressure held until hemostasis was achieved. Sterile 4x4 and Op-site applied to the puncture site. No oozing or hematoma noted. Post sheath removal instructions were given and the patient verbalized understanding. Contrast type used: Omnipaque 300 mgI/mL, 500 mL bottle. Post-op diagnosis: normal coronaries, normal RHC. Complications: none. Post Procedure: Pulses reassessed and unchanged. PERRLA. Strong, equal hand data analysis assistant bilaterally. No VTE prophylaxis required. Medication's Wasted: Lidocaine 1% = 10 mL. Medication's Wasted: Heparin = 1000 units. Medication's Wasted: Nitro = 50 mg. Total IV fluids: 100 mL. A Manual Compression was successful obtaining hemostatsis at the Right Femoral vein insertion site. Venous Sheath(s) removed and manual pressure held until hemostasis was achieved. Sterile 4x4 and Op-site applied to the puncture site. No oozing or hematoma noted. Post sheath removal instructions were given and the patient verbalized understanding. Estimated blood loss: 5mL-10mL. Procedure completed. Patient transferred by bed to 1st floor. Vital chart was stopped. Access Site Site: Right Femoral vein Sheath Size: 6 Fr Hemostasis Method: Manual Compression Hemostasis Success: Successful Site: Right Femoral artery Sheath Size: 6 Fr Hemostasis Method: Manual Compression Hemostasis Success: Successful Procedure Medications Start: 11:07 AM Stop: 11:07 AM Medication: Versed Amount: 1 mg Route: I.V. Start: 11:07 AM Stop: 11:07 AM Medication: Fentanyl Amount: 50 mcg Route: I.V. Start: 11:49 AM Stop: 11:49 AM Medication: Versed Amount: 1 mg Route: I.V. Start: 11:49 AM Stop: 11:49 AM Medication: Fentanyl Amount: 50 mcg Route: I.V. I, the attending physician, have reviewed and verified all procedure medications. Yes, all medications given per verbal order History/Risk Factors Hypertension: Yes Dyslipidemia: No Peripheral Arterial Disease (PAD): No Myocardial Infarction (WI): No Obesity: No Renal Disease: No Prior Interventions PCI: No CABG: No Valve Surgery: No Report Signatures Finalized by Yarelis Araiza MD on 11/25/2020 09:09 PM
[2020-11-13] MEDS: diphenhydrAMINE 50 mg Capsule PO (10:35)
--- NOTE | 2020-11-13 10:59 | W.PM.OPSFHP ---
Same Day Surgery H&P Indication for Procedure/HPI DATE OF PROCEDURE: November 13, 2020 CHIEF COMPLAINT/INDICATIONFOR SURGICAL PROCEDURE: Worsening of shortness of breath of unknown etiology possible pulmonary hypertension, abnormal stress test PREOP DIAGNOSIS: Unexplained shortness of breath with abnormal stress test PLANNED PROCEDRUE: Operation Date: 11/13/20 10:00 Proposed Procedures p Cardiac Catheterization 90556 R94.39(Left) - Yarelis Araiza MD 85-year-old female past medical history significant for hypertension hyperlipidemia CHF COPD under treatment of pulmonary for unknown explained worsening of shortness of breath and deterioration in lifestyle underwent stress test which was positive in the inferior inferolateral region initially thought to be managed medically but since patient continues to deteriorate pulmonary also suggest off further assessing her with left and right heart cath and in my clinic I also was the opinion that since she has deteriorated despite of optimization of medicine we will treat for the proceed with left and right heart catheterization on her. Patient has been explained all risk benefit and alternative for the procedure by myself. She understand the risk for urgent emergent surgery CABG stroke major minor bleed arrhythmia and worse case scenario . She is willing to take dual antiplatelet therapy for at least couple of years. She denies any bleeding per rectum or other source of bleeding. Medications/Allergies* Home Medications Medication Instructions Recorded Confirmed Type aspirin 325 mg tablet 325 mg PO DAILY 02/13/20 11/13/20 History tramadol 50 mg tablet 50 mg PO DAILY PRN 02/13/20 11/13/20 History anastrozole 1 mg tablet 1 mg PO DAILY 05/08/20 11/13/20 History atorvastatin 10 mg tablet 10 mg PO DAILY 05/08/20 11/13/20 History levothyroxine 75 mcg capsule 75 mcg PO DAILY 05/08/20 11/13/20 History hydrochlorothiazide 12.5 mg capsule 12.5 mg PO DAILY 08/24/20 11/13/20 History Allergies/Adverse Reactions Allergy/AdvReac Type Severity Reaction Status Date / Time cefuroxime Allergy Unknown Unknown Verified 09/03/20 08:33 cephalexin [From Keflex] Allergy Unknown Unknown Verified 09/03/20 08:33 ciprofloxacin [From Cipro] Allergy Unknown Unknown Verified 09/03/20 08:33 metronidazole [From Flagyl] Allergy Unknown Unknown Verified 09/03/20 08:33 nitrofurantoin Allergy Unknown Unknown Verified 09/03/20 08:33 [From Macrobid] Penicillins Allergy Unknown Unknown Verified 09/03/20 08:33 Sulfa (Sulfonamide Allergy Unknown Unknown Verified 09/03/20 08:33 Antibiotics) Pertinent History/Comorbid Conditions* Medical History (Updated 11/13/20 @ 00:00 by ) Congestive heart failure History of breast cancer History of pulmonary embolism Lower extremity edema Shortness of Breath Family History (Updated 02/13/20 @ 12:28 by Renee Chavez LPN) Diabetes CAD (coronary artery disease) Mother Myocardial infarction Son Cancer Sister Social History Smoking and tobacco status: never smoked Second hand smoke exposure: Yes Smoking risk assessment/counseling performed?: Yes Alcohol intake: never Caregiver/support person: Yes Lives independently: Yes Household members: family Marital status: / Current occupational status: retired Pets and animals: Yes History of recent travel: No Current gender identity: Female Pertinent Exam Findings alert, oriented x 3, clear to auscultation bilaterally and regular rate & rhythm Conscious Sedation Assessment PATIENT ASSESSED PRIOR TO SEDATION, WITH NO CHANGE NOTED: Yes AIRWAY EVAL/ANESTHESIA PLAN: ASA II, Risks, benefits & alternatives of sedation and/or procedure discussed and Patient agrees to continue as planned Recommendations Surgery/Procedure today Coding Level of Care Code Acute Labor Delivery Rn for Selvin Broussard
--- NOTE | 2020-11-13 14:50 | PC.NURSE ---
received from cardiac ammunition assembly ii laborer at 1230.report received.pt is drowsy but easily awakened.oriented x 3.right groin with drsg dry and intact.venous and arterial sheaths pulled in ammunition assembly ii laborer.site is soft to touch and no hematoma noted.palpable right dp pulse noted.instructed in activity restrictions s/p femoral arterial procedure..and instructed to notify staff for any bleeding,pain,numbness..or for any concerns at all.pt verb understanding of instructions
--- NOTE | 2020-11-13 18:37 | PC.NURSE ---
discharge instructions given and explained to pt and pt's daughter.both verb understanding.discharged via w/c to exit.daughter to drive pt home
== END 2020-11-13 18:15 | disposition home or self-care (01) ==
LOC: CCL 09:01 → CSU 12:40
PROVIDERS: PCP Family Medicine; Visit Provider Internal Medicine Cardiovascular Disease
DX: R06.02 Shortness of breath (principal); R94.39 Abnormal result of other cardiovascular function study; E78.5 Hyperlipidemia, unspecified; I11.0 Hypertensive heart disease with heart failure; I50.9 Heart failure, unspecified; J44.9 Chronic obstructive pulmonary disease, unspecified; Z79.82 Long term (current) use of aspirin
CPT/HCPCS: 36415; 93453; C1751; C1769; C1887; C1894; J1644; J2250; J3010; J3490; J7030; Q0163; Q9967

== ENCOUNTER → 2020-11-21 10:01 | Outpatient (BNVA) | payer MEDICARE, SELFPAY | PROVIDERS: PCP Family Medicine; Visit Provider Nurse Practitioner Family | DX: I50.9 Heart failure, unspecified (principal); I10 Essential (primary) hypertension | CPT/HCPCS: 80048 ==

== ENCOUNTER 2021-03-20 13:36 | Outpatient (CLI) | payer MEDICARE, SELFPAY ==
--- NOTE | 2021-03-20 13:42 | MM_ITS ---
WS: [id number] DIAGNOSTIC BILATERAL DIGITAL MAMMOGRAM WITH CAD HISTORY: History of breast cancer. COMPARISON: 02/13/2020 and 06/03/2018 TECHNIQUE: Bilateral craniocaudad, mediolateral oblique, and mediolateral views are submitted. Comput er aided detection utilized. Breast composition: There are scattered areas of fibroglandular density. Postsurgical biopsy cavity R IGHT breast near 9:00. Moderate trabecular thickening and skin thickening throughout the RIGHT breast . All secondary to radiation. Bilateral breast arterial calcifications and scattered vascular calcifi cations. MM/[place] [id number] IMPRESSION: BI-RADS: 2-Benign FOLLOW UP: 1 Year Follow-up
[2021-03-20 14:56] LABS: Eosinophils # 0.2 10^3/uL (0.0-0.8); Eosinophils % 2.4 %; Hematocrit 40.6 % (37.0-47.0); Lymphocytes # 1.3 10^3/uL (0.8-4.8); Lymphocytes % 16.9 %; Mean Corpuscular Hemoglobin 29.6 pg (28.0-34.0); Mean Corpuscular Volume 92.5 fl (81-99); Mean Platelet Volume 10.4 fL (7.4-10.4); Monocytes # 0.7 10^3/uL (0.2-0.9); Monocytes % 8.6 %; Neutrophils # 5.57 10^3/uL (1.8-7.7); Neutrophils % 71.8 %; Nucleated Red Blood Cells % 0 %; Platelet Count 328 10^3/cmm (130-400); Red Blood Count 4.39 10^6/uL (4.1-5.3); Red Cell Distribution Width 13.1 % (12.1-15.1); White Blood Count 7.8 10^3/uL (4.0-10.0)
[2021-03-20 16:29] LABS: Alanine Aminotransferase 10 U/L (0-33); Albumin Level 3.7 g/dL (3.5-5.2); Alkaline Phosphatase 206 IU/L (35-105); Anion Gap 14.7 (5-19); Aspartate Amino Transferase 23 U/L (0-32); Blood Urea Nitrogen 13 mg/dL (8-23); Carbon Dioxide 24 mmol/L (22-29); Chloride 108 mmol/L (98-107); Globulin 3.4 g/dL (1.3-4.6); Glucose 141 mg/dL (65-115); Osmolality Calculated 298 mOsm/kg (285-295); Potassium 3.7 mmol/L (3.5-5.1); Sodium 143 mmol/L (136-145); Total Bilirubin 0.5 mg/dL (0.15-1.2); Total Protein 7.1 g/dL (6.6-8.7)
== END 2021-03-20 13:37 | disposition home or self-care (01) ==
LOC: RADSHAW 13:50 → ONCMED 14:29
PROVIDERS: PCP Family Medicine; Visit Provider Internal Medicine Hematology & Oncology
DX: C50.811 Malignant neoplasm of overlapping sites of right female breast (principal); C50.111 Malignant neoplasm of central portion of right female breast; Z17.0 Estrogen receptor positive status [ER+]
CPT/HCPCS: 36415; 77066; 80053; 85025

== ENCOUNTER 2021-03-25 06:03 | Outpatient (CLI) | payer MEDICARE, SELFPAY ==
--- NOTE | 2021-03-25 16:32 | ONC FU_ITS ---
Dr. Latham follow up note Patient: Bonnie Pa Unit #: [id number]: [id number] Dicatated By: Roscoe Latham M.D.Date of Visit:Mar 25, 2021 Onc Med Follow-up/Prog Note History of Present Illness: Mrs. Bonnie Pa, is a 85-year-old female who recently experienced some pain in her right breast and also noticed a mass in her right breast. Went to see her primary care physician underwent bilateral mammogram on 05/25/2018 which showed 3.3 x 2.7 x 2.3 cm mass in the retroareolar area which was previously seen on CT scan of chest done on 05/12/2018 subsequently on 06/03/2018 she underwent breast biopsy which confirmed invasive ductal carcinoma with papillary features it was strongly ER/NH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 and on 06/25/2018 she underwent right breast lumpectomy with right sentinel lymph node biopsy which showed invasive ductal carcinoma p T2, pN1a (sn) and MX ER/NH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 margins clear. Oncotype DX score 0 started on Arimidex 1 mg by mouth daily on 07/29/2018, s/p postlumpectomy radiation Chronic urine tract infection, managed by PMD She has completed her postlumpectomy radiation therapy on 10/21/2018 tolerated well, and now tolerating Arimidex well Underwent bilateral diagnostic mammogram on 01/03/2019 in [place] for right breast questionable abnormality and it showed ,other than postoperative changes in the right breast there is no other changes and no change is seen in the left breast. No suspicious mass or calcification seen. Mammogram done on February 13, 2020 showed probable scar tissue in the lateral aspect of the right breast without evidence of recurrence. Negative left breast. Chest x-ray done on February 13, 2020 showed chronic emphysematous changes no acute pulmonary infiltrate Came for follow-up, denies any specific complaints, no fever chills, no nausea vomiting, no diarrhea constipation, no night sweats, no hot flashes, no new musculoskeletal discomfort, as per patient recently she had progressive lower extremity edema for which Dr. Araiza prescribed her diuretics and she responded very well, now now she is taking diuretics and potassium supplement on regular basis as recommended by cardiology for history of congestive heart failure. She is tolerating Arimidex well along with vitamin D and calcium supplement. Medications: Anastrozole 1 Tablet (of 1 mg) Oral daily, Aspirin 1 Tablet (of 81 mg) Tablet, chewable Oral daily, Levothyroxine Sodium 1 Tablet Oral daily, TraMADol HCl 1 (50 mg) Tablet Oral PRN Allergies: Cefuroxime Axetil, Cipro, Flagyl, Keflex, Macrobid, Penicillins, and Sulfa Antibiotics. Review of Systems: Review of Systems is not available for this patient. Vital Signs: Performed on Mar 25, 2021 10:30 Height - 62.00 in Weight - 170.2 lbs (LOW) BSA - 1.78 sq.m BMI - 31.13 (HIGH) Temperature - 97.6 F (LOW) Pulse - 81 /min Respiration - 18 /min BP - 143/81 mm(hg) (HIGH) O2 Sat - 97 % Pain - 0 Fatigue - 0 Performance Status: 0 - Fully active, able to carry on all predisease activities without restrictions. (ECOG) Physical Examination: Respiratory - Lungs are clear to auscultation, Cardiovascular - Regular rate and rhythm of heart, Gastrointestinal - Soft, bowel sounds present, Extremities - Trace edema bilaterally. Lab/Imaging: Most recent lab results are not available for this patient. Impression: Invasive ductal carcinoma right breast status post lumpectomy with sentinel lymph node biopsy done on 06/25/2018 final pathology report showed pT2, (3.1) pN1a (positive sentinel lymph node with 3 mm microscopic lesion with no extracapsular) MX stage Ib ER positive 96%, NH +97%, HER-2/nellie 1+ , negative Oncotype DX score reported on on 08/16/2018 was 0 started on Arimidex 1 mg by mouth daily for 5 years on 07/29/2018. s/p Postlumpectomy radiation therapy Completed on 10/21/2018 History of bilateral pulmonary embolism diagnosed in 2005 status post anticoagulation for 2 to 3 years History of congestive heart failure with chronic lower extremity edema treated with diuretics Plan: Discussed with patient regarding her labs white blood count 7.8 hemoglobin 13 hematocrit 40.6 platelets 328,000 CMP within normal except alk phos 206 compared to 191 in August 2020, Her follow-up mammogram done recently shows BI-RADS 2, benign Clinically, patient doing well with no new signs symptoms suggestive of recurrence of disease her follow-up CMP shows progressive alkaline phosphatase which could be due to progressive osteoporosis/osteopenia due to aromatase inhibitor and or age-related, as per patient she had DEXA scan done many years ago at that time there was no evidence of osteoporosis. If her DEXA scan shows no evidence of osteopenia or osteoporosis, then we may consider bone scan. She will continue with a daily Arimidex along with vitamin D and calcium, patient was advised to also maintain active lifestyle and she will return to clinic in 6 months with CBC CMP and bone density Signed By: Roscoe Latham M.D. <<Signature on File>>
== END 2021-03-25 06:04 | disposition home or self-care (01) ==
LOC: ONCMED 06:07
PROVIDERS: PCP Family Medicine; Visit Provider Internal Medicine Hematology & Oncology
DX: C50.011 Malignant neoplasm of nipple and areola, right female breast (principal); Z17.0 Estrogen receptor positive status [ER+]; Z79.811 Long term (current) use of aromatase inhibitors
CPT/HCPCS: 99214

== ENCOUNTER → 2021-03-29 10:11 | Outpatient (BNVA) | payer MEDICARE, SELFPAY | PROVIDERS: PCP Family Medicine; Visit Provider Internal Medicine Cardiovascular Disease | DX: I50.9 Heart failure, unspecified (principal); R06.02 Shortness of breath; R07.2 Precordial pain; R60.0 Localized edema | CPT/HCPCS: 80048 ==

== ENCOUNTER → 2021-04-03 11:38 | Outpatient (BNVA) | payer MEDICARE, SELFPAY | PROVIDERS: PCP Family Medicine; Visit Provider Nurse Practitioner Family | DX: I50.9 Heart failure, unspecified (principal); I10 Essential (primary) hypertension | CPT/HCPCS: 80048 ==

== ENCOUNTER 2021-07-22 14:23 | Outpatient (CLI) | payer MEDICARE, SELFPAY ==
--- NOTE | 2021-07-22 14:37 | XR_ITS ---
WS: [id number] Exam: XR DEXA axial skeleton* [id number] Date/Time of Exam: 07/22/2021 2:38 PM Reason For Exam: UNSPECIFIED OSTEOPOROSIS, PATHOLOGICAL FRACTURE PRESENT DEXA BONE DENSITOMETRY [employer] The L1-L4 bone mineral density measures 1.068 g/cm2. This corresponds to a T score of -0.9 and Z scor e of 0.5. Left femoral neck bone mineral density measures 0.838 g/cm2. This corresponds to T score of -1.3 and Z score of 0.5. Right femoral neck bone mineral density measures 0.774 g/cm2. This corresponds to a T score of -1.9 a nd Z score of 0.0. Mean femoral neck bone mineral density measures 0.806 g/cm2. This corresponds to a T score of -1.6 an d Z score of 0.3 XR/XR DEXA axial skeleton* [id number] IMPRESSION: Bone mineral density lies in the osteopenic range. Refer to detailed summary.
== END 2021-07-22 14:24 | disposition home or self-care (01) ==
PROVIDERS: PCP Family Medicine; Visit Provider Family Medicine
DX: M81.0 Age-related osteoporosis without current pathological fracture (principal)
CPT/HCPCS: 77080

== ENCOUNTER 2021-09-17 10:13 | Inpatient (IN) | payer MEDICARE, SELFPAY ==
[2021-09-17] VITALS (106 sets, daily range): BP systolic 66–131; BP diastolic 42–72; PULSE 65–90; RESP 14–32; TEMP 36.2–37.1; O2SAT 92–99; BMI 29.5
--- NOTE | 2021-09-17 | SCC_ITS ---
Procedure done: Cystoscopy, left ureteral stent placement (7 Irish by 26 cm double-pigtail without string) 13.6 seconds of fluoroscopic guidance, for a cumulative dose of 2.54 mGy, was provided to Dr. Riggs by the radiology department. C-arm images of the abdomen were saved for the patient's permanent record. [facility]
--- NOTE | 2021-09-17 10:28 | XRR_ITS ---
PROCEDURE INFORMATION: Exam: XR Chest Exam date and time: 09/17/2021 10:28 AM Age: 86 years old Clinical indication: Cough and dyspnea; Prior surgery; Surgery type: Breast, history of breast cancer; Additional info: Dyspnea/cough TECHNIQUE: Imaging protocol: XR of the chest. Views: 1 view. COMPARISON: CT chest con [id number] 04/18/2020 12:19 PM FINDINGS: Lungs: Low lung volumes seen. No consolidation. . The lungs are clear bilaterally Pleural spaces: Elevated right hemidiaphragm is seen No pleural effusion. No pneumothorax. Heart/Mediastinum: Unremarkable. No cardiomegaly. Bones/joints: Unremarkable. XR/XR chest 1V portable [id number] IMPRESSION: 1. No acute findings. 2. Elevated right hemidiaphragm
--- NOTE | 2021-09-17 10:28 | ED_ITS ---
HPI - SOB/Dyspnea General: Chief Complaint: Shortness of Breath/Dyspnea Stated Complaint: SOB INCREASING IN LAST WEEK Time Seen by Provider: 09/17/21 10:23 History of Present Illness: HPI Narrative: 86-year-old female brought to the emergency room complaining of difficulty breathing. Talk to her she gets more tachypneic when she sat resting her respiratory rate decreases and she is more comfortable. Maintaining sats in the mid 90s on room air. She states she has been having difficulty breathing last couple of days she has some mild chest discomfort. She does have a history of previous PE according according to old records as well as some diastolic congestive heart failure. She denies any abdominal pain no nausea vomiting or diarrhea no fever sweats or chills. MD elicited complaint: shortness of breath Pertinent past history: congestive heart failure and PE Onset (ago): hour(s) Timing: constant Severity: severe Exacerbating factors: nothing Relieving factors: nothing Associated symptoms: Reports fever(s) and nausea; Deny abdominal pain, chest congestion, chest pain, cough, diaphoresis, dizziness, extremity pain, hemoptysis, lightheadedness, myalgias, orthopnea, palpitations, paresthesias, polydipsia, polyuria, rash, sense of impending doom or syncope Treatment prior to arrival: none Review of Systems Const: Reports: fever(s); Denies: diaphoresis ENMT: Denies: throat pain, ear or mastoid pain, nasal discharge or nasal congestion Card: Denies: chest pain, palpitations, lightheadedness, syncope or orthopnea Resp: Denies: hemoptysis or chest congestion GI: Reports: nausea; Denies: abdominal pain : Denies: flank pain, difficulty voiding, dysuria, urinary frequency or urinary urgency Musc: Denies: extremity pain Skin/Breast: Denies: rash or pruritus Neuro: Denies: dizziness Endo: Denies: polyuria or polydipsia PFSH ED PFSH: Medical History Abnormal stress test (~07/2020) with subsequent cath without obstructive disease 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, invasive ductal carcinoma, ER/IA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, treated with radiotherapy ending 10/2018, lumpectomy, on arimidex Congestive heart failure Diastolic, grade 1, EF 60% on echo 03/2020 History of bone density study (~07/2021) osteopenia History of breast cancer History of left heart catheterization (~11/2020) with right heart cath, PCWP 23 No significant disease in LAD, left main, circumflex or RCA EF 50% History of PFTs 04/2020 obstructive ventilatory defect, normal DLCO, normal post- bronchodilator spirometry History of pulmonary embolism (~2004) Hyperlipidemia Hypothyroidism Kidney stones Osteopenia Pulmonary hypertension RVSP 40.9 mmHg on echo 03/2020 Recurrent urinary tract infection Surgical History History of breast biopsy History of bunionectomy History of cataract surgery History of detached retina repair History of hysterectomy History of lumpectomy right sided Status post cholecystectomy Status post cystoscopy Family History Mother No problems noted. Sister Cancer multiple myeloma Son Myocardial infarction Father CAD (coronary artery disease) Other Diabetes Social History Smoking and tobacco status: never smoked Second hand smoke exposure: Yes Alcohol intake: never Substance/Drug Use: never Caregiver/support person: Yes Lives independently: Yes Household members: family Marital status: / Current occupational status: retired Pets and animals: Yes Current gender identity: Female Physical Exam Const: GENERAL APPEARANCE: cooperative ORIENTATION/CONSCIOUSNESS: Yes awake, Yes oriented to person, Yes oriented to place and Yes oriented to time HENMT: COMMON NORMALS: normocephalic and atraumatic HEAD & SCALP: norm ocephalic and atraumatic Neck/C-Spine: COMMON NORMALS: no JVD Resp: COMMON NORMALS: normal respiratory effort, No retractions, No use of accessory muscles and clear to auscultation bilaterally AUSCULTATION: clear to auscultation bilaterally Cardio: COMMON NORMALS: no JVD, regular rate, regular rhythm and No murmurs present (Cardio) RATE: regular rate RHYTHM: regular rhythm GI: COMMON NORMALS: Soft to palpation and No hepatosplenomegaly present AUSCULTATION: Yes normoactive bowel sounds PALPATION: Yes Soft to palpation, No Tenderness to palpation present (GI), No Guarding due to palpation present (GI) and Yes No hepatosplenomegaly present Extremity: COMMON NORMALS: normal to inspection, capillary refill normal, no clubbing, cyanosis or edema, no calf tenderness and no pedal edema Neuro: SENSORIUM/ORIENTATION: Yes oriented to person, Yes oriented to place and Yes oriented to time Skin: COMMON NORMALS: no rashes or lesions noted GENERAL SKIN EXAM: no rashes or lesions noted Course Vital Signs: Vital signs: Vital Signs Temperature 97.2 F L 09/17/21 16:22 Pulse Rate 72 09/17/21 16:22 Respiratory Rate 18 09/17/21 16:22 Blood Pressure 99/50 09/17/21 16:22 Pulse Oximetry 97 09/17/21 16:22 MDM - SOB/Dyspnea Medical Decision Making Patient appears septic on arrival however had no obvious focus. She is only complaining of shortness of breath she practically hyperventilates whenever she talks when you can get her to settle down will but stop talking or breathing essentially resumes normal. She is requiring 2 to 3 L by nasal cannula. She has no abdominal pain but on her chest x-ray there is a large amount of air in t he colon repeat exam her abdomen she still complained of no pain was concerned about the amount of air and the lack of finding of focus of sepsis. UA showed cystitis CT of the abdomen without contrast due to acute renal failure showed a large nephrolithiasis causing obstructive pyelonephritis. Patient has multiple antibiotics were called her primary care doctor's office cephalosporins and quinolones have been given in the past she also is unable to give us any definitive on previous antibiotics reactions. She can a blanket get the same description for everything and admit she is not sure if she is really allergic to any of them. We did go ahead and start her on cefepime initially. Cultures have been done discussed with Dr. Velasco orders are written Dr. Rgigs has been consulted by her for the obstructive pyonephritis. Patient is lactic elevated acid is elevated, she was given sepsis fluid bolus and started on Levophed. Medical Records I reviewed the patient's medical records. Lab Data I reviewed the patient's lab results. : 09/17/21 10:40 09/17/21 10:40 Labs/Radiology: Radiology Impressions Chest X-Ray 09/17/21 10:28 IMPRESSION: 1. No acute findings. 2. Elevated right hemidiaphragm Abdomen/Pelvis CT 09/17/21 12:11 IMPRESSION: 1. Advanced LEFT hydronephrosis with pelvocaliectasis and proximal ureterectasis. Obstructing proximal LEFT UPJ calculus measuring 8 mm. 2. Inflammatory stranding and edema about the LEFT kidney. 3. No hydronephrosis in RIGHT kidney. 4. Prior cholecystectomy and hysterectomy. 5. Small esophageal hiatal hernia. 6. Trace pleural fluid lung bases. Slight micronodular infiltrate in the RIGHT middle lobe with bibasilar atelectasis. 7. Small amount of free fluid in the pelvis. 8. Sigmoid diverticulosis. 9. Klein catheter in place. Attempted notification Jaciel Chavis DO at 09/17/2021 1:21 PM. C-Arm Fluoroscopy 09/17/21 15:13 IMPRESSION: Images obtained for intraoperative purposes. Laboratory Results WBC 25.9 10^3/uL (4.0-10.0) H 09/17/21 10:40 RBC 3.89 10^6/uL (4.1-5.3) L 09/17/21 10:40 Hgb 11.3 g/dL (11.5-15.3) L 09/17/21 10:40 Hct 36.1 % (37.0-47.0) L 09/17/21 10:40 MCV 92.8 fl (81-99) 09/17/21 10:40 MCH 29.0 pg (28.0-34.0) 09/17/21 10:40 MCHC 31.3 g/dL (30.0-36.0) 09/17/21 10:40 RDW 14.5 % (12.1-15.1) 09/17/21 10:40 Plt Count 264 10^3/cmm (130-400) 09/17/21 10:40 MPV 11.2 fL (7.4-10.4) H 09/17/21 10:40 Lymph % (Auto) Not Reportable 09/17/21 10:40 Holmes % (Auto) Not Reportable 09/17/21 10:40 Lymph # (Auto) Not Reportable 09/17/21 10:40 Holmes # (Auto) Not Reportable 09/17/21 10:40 Total Counted 100 (0-100) 09/17/21 10:40 Atypical Lymphs % 0.0 % (0-5) 09/17/21 10:40 Absolute Neutrophils 24.9 10^3/cmm (1.4-6.5) H 09/17/21 10:40 Segmented Neutrophils 56 % 09/17/21 10:40 Abs Segm Neuts (Man) 14.5 10/cmm (1.6-7.1) H 09/17/21 10:40 Band Neutrophils 40.0 % 09/17/21 10:40 Abs Band Neuts (Man) 10.4 10^3/cmm (0.0-1.2) H 09/17/21 10:40 Absolute Lymphocytes 0.3 10^3/cmm (1.2-3.4) L 09/17/21 10:40 Lymphocytes (Manual) 1 % 09/17/21 10:40 Monocytes (Manual) 0.0 % 09/17/21 10:40 Absolute Monocytes 0.0 10^3/cmm (0.1-0.6) L 09/17/21 10:40 Eosinophils (Manual) 0 % 09/17/21 10:40 Absolute Eosinophils 0.0 10^3/cmm (0.0-0.7) 09/17/21 10:40 Basophils (Manual) 0.0 % 09/17/21 10:40 Absolute Basophils 0.0 10^3/cmm (0.0-0.2) 09/17/21 10:40 Metamyelocytes 3.0 % 09/17/21 10:40 Platelet Estimate Normal (Normal) 09/17/21 10:40 Specimen Type Arterial 09/17/21 11:04 Sample Site Brachial, right 09/17/21 11:04 ABG pH 7.41 (7.35-7.45) 09/17/21 11:04 ABG pCO2 26.1 mmHg (35-45) L 09/17/21 11:04 ABG pO2 50.9 mmHg (80.0-100.0) L 09/17/21 11:04 ABG HCO3 16.4 mmol/L (22-26) L 09/17/21 11:04 ABG O2 Saturation 86.3 09/17/21 11:04 ABG Base Excess -6.7 mmol/L (-2.0-2.0) L 09/17/21 11:04 Matthew Test N/a 09/17/21 11:04 A-a O2 Gradient 8.7 mmHg (5-10) 09/17/21 11:04 Hematocrit 38.4 % (37-47) 09/17/21 11:04 Hgb O2 Saturation 85.2 % (95-100) L 09/17/21 11:04 Carboxyhemoglobin 0.8 %THgb (0.4-20.1) 09/17/21 11:04 Methemoglobin 0.5 % (0.4-1.5) 09/17/21 11:04 Total Hemoglobin 12.5 g/dL (12-16) 09/17/21 11:04 Sodium 136.0 mmol/L (131-143) 09/17/21 11:04 Potassium 3.5 mmol/L (3.5-5.0) 09/17/21 11:04 Glucose 127.0 mg/dL (70-115) H 09/17/21 11:04 Ionized Calcium 1.1 mmol/L (1.1-1.4) 09/17/21 11:04 O2 Delivery Device Room air 09/17/21 11:04 FiO2 21.0 % 09/17/21 11:04 Ammunition And Explosives Handler ID [id number] 09/17/21 11:04 Sodium 135 mmol/L (136-145) L 09/17/21 10:40 Potassium 4.0 mmol/L (3.5-5.1) 09/17/21 10:40 Chloride 97 mmol/L (98-107) L 09/17/21 10:40 Carbon Dioxide 14 mmol/L (22-29) L 09/17/21 10:40 Anion Gap 28.0 (5-19) H 09/17/21 10:40 BUN 35 mg/dL (8-23) H 09/17/21 10:40 Creatinine 3.2 mg/dL (0.5-0.9) H 09/17/21 10:40 GFR Calculation Not Reportable 09/17/21 10:40 Glucose 108 mg/dL (65-115) 09/17/21 10:40 Calculated Osmolality 289 mOsm/kg (285-295) 09/17/21 10:40 Lactic Acid 9.4 mmol/L (0.5-2.2) H* 09/17/21 10:40 Calcium 8.8 mg/dL (8.5-10.5) 09/17/21 10:40 Total Bilirubin 1.0 mg/dL (0.15-1.2) 09/17/21 10:40 AST 131 U/L (0-32) H 09/17/21 10:40 ALT 52 U/L (0-33) H 09/17/21 10:40 Alkaline Phosphatase 199 IU/L (35-105) H 09/17/21 10:40 Creatine Kinase 1916 U/L (26-192) H* 09/17/21 10:40 Troponin T Baseline 484 ng/L (0-10) H* 09/17/21 10:40 Troponin T 120 Minute 400.0 ng/L (0-10) H 09/17/21 12:38 Delta Troponin T -84.0 ABS# (0-10) L 09/17/21 12:38 NT-Pro-B Natriuret Pep 73920 pg/mL (0-450) H 09/17/21 10:40 Total Protein 6.5 g/dL (6.6-8.7) L 09/17/21 10:40 Albumin 2.9 g/dL (3.5-5.2) L 09/17/21 10:40 Globulin 3.6 g/dL (1.3-4.6) 09/17/21 10:40 Lipase 11 U/L (13-60) L 09/17/21 10:40 Urine Color Yellow (Yellow) 09/17/21 12:49 Urine Appearance Hazy (CLEAR) A 09/17/21 12:49 Urine pH 5 (5-7) 09/17/21 12:49 Ur Specific [place] 1.015 (1.005-1.030) 09/17/21 12:49 Urine Protein 1+ (Negative) H 09/17/21 12:49 Urine Glucose (UA) Norm (Normal) 09/17/21 12:49 Urine Ketones Negative (Negative) 09/17/21 12:49 Urine Blood 3+ (Negative) H 09/17/21 12:49 Urine Nitrate Positive (Negative) H 09/17/21 12:49 Urine Bilirubin Neg (Negative) 09/17/21 12:49 Urine Urobilinogen 1 mg/dL (Negative) H 09/17/21 12:49 Ur Leukocyte Esterase 2+ (Negative) H 09/17/21 12:49 Urine RBC 15-25 /hpf (0-2) H 09/17/21 12:49 Urine WBC 55-80 /hpf (0-5) H 09/17/21 12:49 Ur Squamous Epith Cells 5-10 /hpf (0-5) H 09/17/21 12:49 Amorphous Sediment Not Reportable 09/17/21 12:49 Urine Bacteria 1+ /hpf (NONE) H 09/17/21 12:49 Coarse Granular Casts 0-4 /lpf H 09/17/21 12:49 Urine Mucus 2+ /hpf 09/17/21 12:49 Coronavirus 229E (PCR) Not detected (NOT DETECT) 09/17/21 10:52 SARS-CoV-2 (PCR) Not detected (NOT DETECT) 09/17/21 10:52 Critical Care Time Critical Care Time: Critical Care Time: Yes Total Critical Care Time: 35 Attestation: The high probability of a clinically significant, sudden or life threatening deterioration of the patient's sepsis, cardiovascular system(s) required my full and direct attention, intervention and personal management. The critical care time is as shown. This time is in addition to time spent performing any reported procedures but includes the following: [x] Data and vital sign review and interpretation [x] Patient assessment, examination and intervention [x] Documentation [x] Medication orders and management Discharge Plan Discharge Patient Disposition: Admitted As Inpatient Admit Provider: Angelita Rivas Clinical Impression: Septic shock, Acute pyelonephritis, Hydronephrosis with urinary obstruction due to renal calculus, Acute renal failure, Rhabdomyolysis, Ureteropelvic junction (UPJ) obstruction, left, Elevated troponin, Shortness of Breath, Pulmonary hypertension Condition: Stable Coding Level of Care Code ED Intake Rn for Selvin Broussard
--- NOTE | 2021-09-17 10:28 | ECG_ITS ---
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 Measurements Intervals Gray Rate: 88 P: 32 MS: 135 QRS: -12 QRSD: 101 T: 13 QT: 353 QTc: 429 Interpretive Statements SINUS RHYTHM LOW QRS VOLTAGE IN PRECORDIAL LEADS [QRS DEFLECTION < 1.0 mV IN CHEST LEADS] INCOMPLETE RIGHT BUNDLE BRANCH BLOCK [90+ ms QRS DURATION, TERMINAL R IN V1/V2, 40+ ms S IN I/aVL/V4/V5/V6] No previous ECG available for comparison Electronically Signed On 09-18-2021 9:18:10 UTILITY AIDE by Micki Ring M.D. [email or web address]
[2021-09-17 10:47] LABS: Hematocrit 36.1 % (37.0-47.0); Hemoglobin 11.3 g/dL (11.5-15.3); Mean Corpuscular HGB Conc 31.3 g/dL (30.0-36.0); Mean Corpuscular Volume 92.8 fl (81-99); Mean Platelet Volume 11.2 fL (7.4-10.4); Platelet Count 264 10^3/cmm (130-400); Red Blood Count 3.89 10^6/uL (4.1-5.3); Red Cell Distribution Width 14.5 % (12.1-15.1); White Blood Count 25.9 10^3/uL (4.0-10.0)
--- NOTE | 2021-09-17 10:53 | PC.NURSE ---
PT PLACED ON CONTINUOUS SPO2, NIBP, AND CM.
[2021-09-17 11:10] LABS: Absolute Neutrophil 24.9 10^3/cmm (1.4-6.5); Absolute Segmented Neutrophil 14.5 10/cmm (1.6-7.1); Band Neutrophils Absolute 10.4 10^3/cmm (0.0-1.2); Eosinophils 0 %; Lymphocytes 1 %; Lymphocytes Absolute 0.3 10^3/cmm (1.2-3.4); Platelet Estimate Normal (Normal); Segmented Neutrophils 56 %; Total Cells Counted 100 (0-100)
[2021-09-17 11:14] LABS: ABG PCO2 26.1 mmHg (35-45); ABG PH Result 7.41 (7.35-7.45); Alveolar-Arterial Oxygen Gradi 8.7 mmHg (5-10); Arterial Blood Gas Hematocrit 38.4 % (37-47); Base Excess ABG -6.7 mmol/L (-2.0-2.0); Blood Gas Operator Identificat glc; Blood Gas Sample Site Brachial, right; Blood Gas Sample Type Arterial; Carboxyhemoglobin 0.8 %THgb (0.4-20.1); HCO3 ABG 16.4 mmol/L (22-26); HGB O2 Sat 85.2 % (95-100); Ionized Calcium Level - ABG 1.1 mmol/L (1.1-1.4); Methemoglobin 0.5 % (0.4-1.5); Oxygen Device ROOM AIR; Oxygen Saturation ABG 86.3; PO2 ABG 50.9 mmHg (80.0-100.0); Potassium Level - ABG 3.5 mmol/L (3.5-5.0); Total Hemoglobin 12.5 g/dL (12-16)
[2021-09-17 11:18] LABS: Troponin(5th) Baseline 484 ng/L (0-10)
[2021-09-17 11:22] LABS: Alanine Aminotransferase 52 U/L (0-33); Albumin Level 2.9 g/dL (3.5-5.2); Alkaline Phosphatase 199 IU/L (35-105); Blood Urea Nitrogen 35 mg/dL (8-23); Calcium 8.8 mg/dL (8.5-10.5); Carbon Dioxide 14 mmol/L (22-29); Chloride 97 mmol/L (98-107); Globulin 3.6 g/dL (1.3-4.6); Glucose 108 mg/dL (65-115); NT Pro B Type Natriuretic Pept 14354 pg/mL (0-450); Osmolality Calculated 289 mOsm/kg (285-295); Sodium 135 mmol/L (136-145); Total Protein 6.5 g/dL (6.6-8.7)
[2021-09-17 11:25] LABS: Aspartate Amino Transferase 131 U/L (0-32)
[2021-09-17 11:41] LABS: Lipase 11 U/L (13-60)
[2021-09-17 11:43] LABS: Lactic Sepsis W/Reflex 9.4 mmol/L (0.5-2.2)
--- NOTE | 2021-09-17 12:11 | CT_ITS ---
WS: [id number] CT ABDOMEN PELVIS TECHNIQUE: Noncontrast CT of the abdomen and pelvis with coronal and sagittal reformatted images. CLINICAL INFORMATION: sepsis COMPARISON: CT 10 10,018 DLP: 1552.[address] scans at [facility] use at least one of these dose optimization techniques: automated e xposure control; mA and/or kV adjustment per patient size (includes targeted exams where dose is matc hed to clinical indication); or iterative reconstruction. FINDINGS: Prior postoperative cholecystectomy and hysterectomy. Small esophageal hiatal hernia. Moderate to adv anced LEFT hydronephrosis with obstructing LEFT proximal ureteral calculus at the UPJ measuring 8 mm. LEFT proximal ureterectasis. Inflammatory stranding and induration about the LEFT kidney. Additional smaller nonobstructing LEFT r enal parenchymal and calyceal calculi. Distal LEFT ureter is decompressed. Klein catheter in place. N o obstructing RIGHT renal or ureteral calculi. Atelectasis in the lung bases. Slight micronodular infiltrate in the RIGHT middle lobe partially visu alized. Trace pleural fluid the lung bases. Adrenal glands are normal. Fatty atrophy of the pancreas. Splenic granulomas. Aortic calcification. N ormal caliber abdominal aorta. Sigmoid diverticulosis. No high-grade small or large bowel obstruction . Tiny fat-containing umbilical hernia. Disc space narrowing throughout the lumbar spine. Small amoun t of free fluid in the pelvis. CT/CT abdomen pelvis wo con [id number] IMPRESSION: 1. Advanced LEFT hydronephrosis with pelvocaliectasis and proximal ureterectas is. Obstructing proximal LEFT UPJ calculus measuring 8 mm. 2. Inflammatory stranding and edema about the LEFT kidney. 3. No hydronephrosis in RIGHT kidney. 4. Prior cholecystectomy and hysterectomy. 5. Small esophageal hiatal hernia. 6. Trace pleural fluid lung bases. Slight micronodular infiltrate in the RIGHT middle lobe with bibasilar atelectasis. 7. Small amount of free fluid in the pelvis. 8. Sigmoid diverticulosis. 9. Klein catheter in place. Attempted notification Jaciel Chavis DO at 09/17/2021 1:21 PM.
--- NOTE | 2021-09-17 12:32 | P.HP_ITS ---
Providers/Chief Complaint Admitting Physician: Angelita Rivas MD Primary Care Provider: Domingo Bowser Chief Complaint: SOB INCREASING IN LAST WEEK History of Present Illness Bonnie Pa is a 86 year old female who presented to the emergency room a chief complaint of being weak and not feeling well. History is a little bit difficult to obtain as patient is not able to recall some dates and events chronologically but from what I can gather, she saw nurse practitioner at Dr. David velazquez's office last week for her wellness exam. The day after that she started not feeling well. She cannot really describe what was bothering her beyond saying that she was having some nausea and difficulty keeping things down. She denied any vomiting. She had some chills without definitive fever. She always has loose stools and there was no change in that. Denies any abdominal pain or flank pain. Denies any dysuria or hematuria. She has become progressively weaker and not been eating much of anything nor drinking much of anything the last couple of days. She has continued taking her medications which include Lasix, potassium and isosorbide along with Arimidex and levothyroxine. In the last 24 hours or so she has become increasingly short of breath. This morning she was so weak that she could not stand. Her daughter and her sister were having difficulty maneuvering her of the extent of her weakness. EMS was called. She was short of breath and at that she received Solu-Medrol and albuterol in route. She was requiring oxygen therapy. On arrival here, she was afebrile. Initial blood pressures were around 90 systolic but dropped into the 70s to 80s systolic. She has received fluid bolus and ultimately started on Levophed. She has multiple laboratory abnormalities and other issues as noted below. She received a dose of cefepime empirically and is being admitted for further evaluation and treatment as indicated. Of note allergy list shows allergies to multiple antibiotics. Emergency room physician reviewed with primary care provider's office and they had prescribed patinet Keflex, Ceftin and fluoroquinolones without any difficulties. Review of Systems Const: Reports: chills, change in appetite, fatigue and malaise Eyes: Denies: change in vision ENMT: Reports: dry mouth; Denies: throat pain Card: Reports: edema (Takes Lasix for, currently okay) and other (Right lower extremity larger than left lower extremity chronically per radha); Denies: chest pain or palpitations Resp: Reports: dyspnea; Denies: productive cough, non-productive cough, pain on inspiration or hemoptysis GI: Reports: nausea, dysphagia (Reports some difficulty swallowing the last week) and diarrhea (Chronic); Denies: abdominal pain, vomiting or constipation : Reports: oliguria; Denies: flank pain, difficulty voiding or hematuria Musc: Reports: muscle weakness and other (Generalized aches and pains rather than specific joints bothering her) Skin/Breast: Denies: rash or pruritus Neuro: Reports: weakness in extremities, lack of coordination, difficulty walking, confusion and difficulty communicating thoughts Nelson/Lymph: Denies: easy bruising or easy bleeding Medications/Allergies Home Medications Medication Instructions Recorded Confirmed Last Taken Type anastrozole 1 mg tablet 1 mg PO DAILY 05/08/20 06/25/21 11/12/20 20:00 History umeclidinium 62.5 mcg-vilanterol 1 inh INHALATION DAILY #60 ea 06/25/21 06/25/21 Unknown Rx 25 mcg/actuation powdr for inhalation (Anoro Ellipta) aspirin 325 mg tablet 325 mg PO BEDTIME 09/17/21 09/17/21 Unknown History atorvastatin 10 mg tablet 10 mg PO BEDTIME 09/17/21 09/17/21 Unknown History furosemide 20 mg tablet (Lasix) 20 mg PO QAM 09/17/21 09/17/21 Unknown History isosorbide mononitrate 30 mg 15 mg PO BEDTIME 09/17/21 09/17/21 Unknown History tablet,extended release 24 hr levothyroxine 75 mcg tablet 75 mcg PO QAM 09/17/21 09/17/21 Unknown History potassium chloride 20 mEq 20 meq PO QAM 09/17/21 09/17/21 Unknown History tablet,extended release Allergies Allergy/AdvReac Type Severity Reaction Status Date / Time ciprofloxacin [From Cipro] Allergy Unknown Unknown Verified 09/17/21 12:31 metronidazole [From Flagyl] Allergy Unknown Unknown Verified 09/17/21 12:31 nitrofurantoin Allergy Unknown Unknown Verified 09/17/21 12:31 [From Macrobid] Penicillins Allergy Unknown Unknown Verified 09/17/21 12:31 Sulfa (Sulfonamide Allergy Unknown Unknown Verified 09/17/21 12:31 Antibiotics) hydrochlorothiazide Allergy Unknown Verified 09/17/21 12:30 triamterene Allergy Unknown Verified 09/17/21 12:30 PFSH Acute PFSH: Medical History (Updated 09/17/21 @ 14:36 by Angelita Rivas MD) Abnormal stress test (~07/2020) with subsequent cath without obstructive disease 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, invasive ductal carcinoma, 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, treated with radiotherapy ending 10/2018, lumpectomy, on arimidex Congestive heart failure Diastolic, grade 1, EF 60% on echo 03/2020 History of bone density study (~07/2021) osteopenia History of breast cancer History of left heart catheterization (~11/2020) with right heart cath, PCWP 23 No significant disease in LAD, left main, circumflex or RCA EF 50% History of PFTs 04/2020 obstructive ventilatory defect, normal DLCO, normal post- bronchodilator spirometry History of pulmonary embolism (~2004) Hyperlipidemia Hypothyroidism Kidney stones Osteopenia Pulmonary hypertension RVSP 40.9 mmHg on echo 03/2020 Recurrent urinary tract infection Surgical History (Updated 09/17/21 @ 13:01 by Angelita Rivas MD) History of breast biopsy History of bunionectomy History of cataract surgery History of detached retina repair History of hysterectomy History of lumpectomy right sided Status post cholecystectomy Status post cystoscopy Family History (Updated 09/17/21 @ 13:02 by Angelita Rivas MD) Mother No problems noted. Sister Cancer multiple myeloma Son Myocardial infarction Father CAD (coronary artery disease) Other Diabetes Social History (Updated 09/17/21 @ 13:03 by Angelita Rivas MD) Smoking and tobacco status: never smoked Second hand smoke exposure: Yes Alcohol intake: never Substance/Drug Use: never Caregiver/support person: Yes Lives independently: Yes Household members: family Marital status: / Current occupational status: retired Pets and animals: Yes Current gender identity: Female Vitals/I&O/Wt Last Vital Signs Pulse 90 09/17/21 10:22 Resp 28 H 09/17/21 10:22 BP 92/50 09/17/21 10:22 Pulse Ox 92 09/17/21 10:22 Weight last 48 hrs Weight 75.75 kg Physical Exam Narrative: Constitutional: Awake, alert, little confused and has difficulty remembering dates and times of when things happen but cooperative, acutely ill-appearing HEENT: Mild bitemporal wasting, pupils are equally reactive, conjunctive are slightly injected, some tearing is noted, nasopharynx is clear, oropharynx edentulous upper, bill moore[place]ough lower, very dry mucous membranes Neck: Supple Respiratory: Tachypneic but clear, shallow, no wheezes or rails Cardiovascular: Regular rhythm, no murmurs gallops or rubs, no JVD Abdomen: Soft, nontender, decreased bowel sounds, nondistended : No flank pain, Kleni catheter with small amount of dark yellow cloudy urine Extremities: Right lower extremity larger in diameter than left lower extremity, no calf tenderness, no palpable cords, no pitting edema, no red or swollen joints or bony hypertrophy Skin: Pale, dry, tenting, minor bruises, no rashes Neuro: Speech is clear, lower jaw protrudes but otherwise face is symmetric, moves all extremities though generally weak Psych: Upset that she is having difficulty providing information but otherwise normal affect Sepsis: Is patient septic: Yes Focused sepsis exam performed: Yes Focused sepsis exam: Ill-appearing, regular rhythm, tachypneic but clear, shallow respirations, abdomen soft, cyanosis of the fingers and toes, cool, capillary refill around 3 seconds but no mottling beyond the feet, on 10 mics of Levophed Date exam was performed: 09/17/21 Time exam was performed: 13:41 Data : 09/17/21 10:40 09/17/21 10:40 Other Labs: Radiology Impressions Chest X-Ray 09/17/21 10:28 IMPRESSION: 1. No acute findings. 2. Elevated right hemidiaphragm CT Abd/pelvis without 09/17/2021 13:21 IMPRESSION: 1.? Advanced LEFT hydronephrosis with pelvocaliectasis and proximal ureterectasis. Obstructing proximal LEFT UPJ calculus measuring 8 mm. 2.? Inflammatory stranding and edema about the LEFT kidney. 3.? No hydronephrosis in RIGHT kidney. 4.? Prior cholecystectomy and hysterectomy. 5.? Small esophageal hiatal hernia. 6.? Trace pleural fluid lung bases. Slight micronodular infiltrate in the RIGHT middle lobe with bibasilar atelectasis. 7.? Small amount of free fluid in the pelvis. 8.? Sigmoid diverticulosis. 9.? Klein catheter in place. Laboratory Results WBC 25.9 10^3/uL (4.0-10.0) H 09/17/21 10:40 RBC 3.89 10^6/uL (4.1-5.3) L 09/17/21 10:40 Hgb 11.3 g/dL (11.5-15.3) L 09/17/21 10:40 Hct 36.1 % (37.0-47.0) L 09/17/21 10:40 MCV 92.8 fl (81-99) 09/17/21 10:40 MCH 29.0 pg (28.0-34.0) 09/17/21 10:40 MCHC 31.3 g/dL (30.0-36.0) 09/17/21 10:40 RDW 14.5 % (12.1-15.1) 09/17/21 10:40 Plt Count 264 10^3/cmm (130-400) 09/17/21 10:40 MPV 11.2 fL (7.4-10.4) H 09/17/21 10:40 Lymph % (Auto) Not Reportable 09/17/21 10:40 [place] % (Auto) Not Reportable 09/17/21 10:40 Lymph # (Auto) Not Reportable 09/17/21 10:40 [place] # (Auto) Not Reportable 09/17/21 10:40 Total Counted 100 (0-100) 09/17/21 10:40 Atypical Lymphs % 0.0 % (0-5) 09/17/21 10:40 Absolute Neutrophils 24.9 10^3/cmm (1.4-6.5) H 09/17/21 10:40 Segmented Neutrophils 56 % 09/17/21 10:40 Abs Segm Neuts (Man) 14.5 10/cmm (1.6-7.1) H 09/17/21 10:40 Band Neutrophils 40.0 % 09/17/21 10:40 Abs Band Neuts (Man) 10.4 10^3/cmm (0.0-1.2) H 09/17/21 10:40 Absolute Lymphocytes 0.3 10^3/cmm (1.2-3.4) L 09/17/21 10:40 Lymphocytes (Manual) 1 % 09/17/21 10:40 Monocytes (Manual) 0.0 % 09/17/21 10:40 Absolute Monocytes 0.0 10^3/cmm (0.1-0.6) L 09/17/21 10:40 Eosinophils (Manual) 0 % 09/17/21 10:40 Absolute Eosinophils 0.0 10^3/cmm (0.0-0.7) 09/17/21 10:40 Basophils (Manual) 0.0 % 09/17/21 10:40 Absolute Basophils 0.0 10^3/cmm (0.0-0.2) 09/17/21 10:40 Metamyelocytes 3.0 % 09/17/21 10:40 Platelet Estimate Normal (Normal) 09/17/21 10:40 Specimen Type Arterial 09/17/21 11:04 Sample Site Brachial, right 09/17/21 11:04 ABG pH 7.41 (7.35-7.45) 09/17/21 11:04 ABG pCO2 26.1 mmHg (35-45) L 09/17/21 11:04 ABG pO2 50.9 mmHg (80.0-100.0) L 09/17/21 11:04 ABG HCO3 16.4 mmol/L (22-26) L 09/17/21 11:04 ABG O2 Saturation 86.3 09/17/21 11:04 ABG Base Excess -6.7 mmol/L (-2.0-2.0) L 09/17/21 11:04 Matthew Test N/a 09/17/21 11:04 A-a O2 Gradient 8.7 mmHg (5-10) 09/17/21 11:04 Hematocrit 38.4 % (37-47) 09/17/21 11:04 Hgb O2 Saturation 85.2 % (95-100) L 09/17/21 11:04 Carboxyhemoglobin 0.8 %THgb (0.4-20.1) 09/17/21 11:04 Methemoglobin 0.5 % (0.4-1.5) 09/17/21 11:04 Total Hemoglobin 12.5 g/dL (12-16) 09/17/21 11:04 Sodium 136.0 mmol/L (131-143) 09/17/21 11:04 Potassium 3.5 mmol/L (3.5-5.0) 09/17/21 11:04 Glucose 127.0 mg/dL (70-115) H 09/17/21 11:04 Ionized Calcium 1.1 mmol/L (1.1-1.4) 09/17/21 11:04 O2 Delivery Device Room air 09/17/21 11:04 FiO2 21.0 % 09/17/21 11:04 Restaurant Service Manager ID glc 09/17/21 11:04 Sodium 135 mmol/L (136-145) L 09/17/21 10:40 Potassium 4.0 mmol/L (3.5-5.1) 09/17/21 10:40 Chloride 97 mmol/L (98-107) L 09/17/21 10:40 Carbon Dioxide 14 mmol/L (22-29) L 09/17/21 10:40 Anion Gap 28.0 (5-19) H 09/17/21 10:40 BUN 35 mg/dL (8-23) H 09/17/21 10:40 Creatinine 3.2 mg/dL (0.5-0.9) H 09/17/21 10:40 GFR Calculation Not Reportable 09/17/21 10:40 Glucose 108 mg/dL (65-115) 09/17/21 10:40 Calculated Osmolality 289 mOsm/kg (285-295) 09/17/21 10:40 Lactic Acid 9.4 mmol/L (0.5-2.2) H* 09/17/21 10:40 Calcium 8.8 mg/dL (8.5-10.5) 09/17/21 10:40 Total Bilirubin 1.0 mg/dL (0.15-1.2) 09/17/21 10:40 AST 131 U/L (0-32) H 09/17/21 10:40 ALT 52 U/L (0-33) H 09/17/21 10:40 Alkaline Phosphatase 199 IU/L (35-105) H 09/17/21 10:40 Troponin T Baseline 484 ng/L (0-10) H* 09/17/21 10:40 NT-Pro-B Natriuret Pep 79691 pg/mL (0-450) H 09/17/21 10:40 Total Protein 6.5 g/dL (6.6-8.7) L 09/17/21 10:40 Albumin 2.9 g/dL (3.5-5.2) L 09/17/21 10:40 Globulin 3.6 g/dL (1.3-4.6) 09/17/21 10:40 Lipase 11 U/L (13-60) L 09/17/21 10:40 Repeat lactic acid is down to 6.2 Laboratory Tests 09/17/21 12:49 Urine Blood 3+ H Urine Nitrate Positive H Ur Leukocyte Esterase 2+ H Urine RBC 15-25 H Urine WBC 55-80 H Ur Squamous Epith Cells 5-10 H Urine Bacteria 1+ H Micro: Microbiology 09/17/21 11:31 Blood Culture - Preliminary Blood SPECIMEN COLLECTED 09/17/21 11:30 Blood Culture - Preliminary Blood SPECIMEN COLLECTED A&P Assessment and plan (1) Septic shock: As evidenced by multiorgan failure with leukocytosis with prominent left shift, hypotension not responding to fluids necessitating pressor support, confusion, acute renal failure, tachypnea and hypoxemia beyond usual, lactic acidosis, rhabdomyolysis, in the setting of acute pyelonephritis with obstructing kidney stone. Chronic medications also probable contributor to degree of hypotension. Status: Acute (2) Acute pyelonephritis: Status: Acute (3) Ureteropelvic junction (UPJ) obstruction, left: Status: Acute (4) Hydronephrosis with urinary obstruction due to renal calculus: Status: Acute (5) Acute renal failure: Secondary to obstructive process from stone and ATN from hypotension Status: Acute Qualifiers: Acute renal failure type: with other specified pathological lesion Qualified Code(s): N17.8 - Other acute kidney failure (6) Rhabdomyolysis: Nontraumatic related to weakness and infection, is also chronically on a statin Status: Acute Qualifiers: Rhabdomyolysis type: non-traumatic Qualified Code(s): M62.82 - Rhabdomyolysis (7) Elevated troponin: Right and left heart cath were performed in 2020 with no significant obstructive disease Type II process secondary to sepsis and renal failure rather than due to primary cardiac, , though presently unable to fully rule out pulmonary embolism as potential cause for elevation Status: Acute (8) Pulmonary hypertension: Status: Chronic (9) Congestive heart failure: Elevated BNP currently due to acute renal failure and sepsis, cannot completely rule out potential component of pulmonary embolism Status: Chronic Qualifiers: Heart failure type: diastolic Heart failure chronicity: chronic Qualified Code(s): I50.32 - Chronic diastolic (congestive) heart failure (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: Not currently acute, tachypnea more in line with compensated metabolic acidosis Status: Chronic (11) History of breast cancer: Remains on Arimidex Status: Chronic (12) History of pulmonary embolism: Some years ago, treated with anticoagulation for several years but none in a while Chronically on Arimidex Chronic right lower extremity edema and reports difficulty moving leg and increased pain in the right lower extremity recently No pleuritic chest pain but is hypoxic, AA gradient on initial ABG within normal range Status: Acute Plan Inpatient admission ICU care Continue IV fluids Continue pressor support Empiric cefepime and vancomycin currently Aware of allergies by ED provider confirmed with primary care provider's office that she has received cephalosporins and for quinolones without issue in the [id number] past Consultation Dr. Riggs for intervention Blood and urine cultures have been collected Hold home medications except for aspirin and levothyroxine currently Serial labs Monitor for volume overload Continue Klein catheter for close monitoring of urine output in a critically ill patient with acute renal failure Breathing treatments if needed Continue serial cardiac enzymes Subcu heparin for DVT prophylaxis postoperatively if no contraindication from surgical standpoint Check venous duplex of the right lower extremity Rapid Covid PCR was negative Supportive care otherwise Findings, concerns and plans were discussed with patient as well as with patient's daughter Delia. Both were given an opportunity to ask questions. Both understand anticipated surgical intervention and that Dr. Riggs is adelaide barr in. Full code as per discussion with patient and daughter Attestations Medical Necessity Statement*: Anticipated stay greater than two midnights inpatient presenting with issues as noted above currently septic requiring IV fluids, IV antibiotics and emergent intervention from urology. Requiring ICU level care and at risk of further clinical decline without aggressive management Critical Care Time: The high probability of a clinically significant, sudden or life threatening deterioration of the patient's cardiovascular and renal system(s) required my full and direct attention, intervention and personal management. The critical care time is as shown. This time is in addition to time spent performing any reported procedures but includes the following: [x] Data and vital sign review and interpretation [x] Patient assessment, examination and intervention [x] Documentation [x] Medication orders and management Critical Care Time (min): 52 Coding Level of Care Code Acute Preliminary School Psychologist for g Fwd Diagnoses Septic shock A41.9; R65.21 Acute pyelonephritis N10 Ureteropelvic junction (UPJ) obstruction, left N13.5 Hydronephrosis with urinary obstruction due to renal calculus N13.2 Pulmonary hypertension I27.20 Congestive heart failure I50.32 Heart failure type: diastolic Heart failure chronicity: chronic Asthma-COPD overlap syndrome J44.9 History of breast cancer Z85.3 History of pulmonary embolism Z86.711 Acute renal failure N17.8 Acute renal failure type: with other specified pathological lesion Rhabdomyolysis M62.82 Rhabdomyolysis type: non-traumatic Elevated troponin R77.8
[2021-09-17] MEDS: norepinephrine 8 MG in dextrose 5 % 500 ML 30.48 MG IV (12:39)
[2021-09-17 13:14] LABS: Adenovirus Not Detected (NOT DETECT); Chlamydia Pneumoniae Not Detected (NOT DETECT); Coronavirus 229E,HKU1,NL63,OC4 Not Detected (NOT DETECT); Human Metapneumovirus Not Detected (NOT DETECT); Human Rhinovirus/Enterovirus Not Detected (NOT DETECT); Influenza A Not Detected (NOT DETECT); Influenza A H1 Not Detected (NOT DETECT); Influenza A H1-2009 Not Detected (NOT DETECT); Influenza A H3 Not Detected (NOT DETECT); Influenza B Not Detected (NOT DETECT); Mycoplasma Pneumoniae Not Detected (NOT DETECT); Parainfluenza Virus Type 1 Not Detected (NOT DETECT); Parainfluenza Virus Type 2 Not Detected (NOT DETECT); Parainfluenza Virus Type 3 Not Detected (NOT DETECT); Parainfluenza Virus Type 4 Not Detected (NOT DETECT); Respiratory Syncytial Virus A Not Detected (NOT DETECT); Respiratory Syncytial Virus B Not Detected (NOT DETECT); SARS-COV-2 Not Detected (NOT DETECT)
[2021-09-17 13:16] LABS: Reflex Lactate Order REFLEX LACTIC ORDERD
--- NOTE | 2021-09-17 13:19 | USCV_ITS ---
Bonnie Pa Age: 86 Gender: F : 1935 Exam Date: 09/17/2021 13:31 Ordering Phys: Angelita Rivas MD Technologist: SUMIT [place] [facility] [place]: hx of dvt / leg swelling HISTORY: hx of dvt / leg swelling PROCEDURES: On the right side, the common femoral, superficial femoral, profunda femoral, popliteal, posterior tibial, greater saphenous veins, and the peroneal trunk were identified and interrogated in the standard fashion. FINDINGS: Normal 2-D Doppler and augmentation and compressibility throughout the lower extremity venous structures. Additional imaging through the proximal calf veins also reveals no thrombus. Limited evaluation of the greater saphenous vein is patent with no thrombus. CONCLUSIONS No DVT right lower extremity. Dr. Maddi Nunez DO (Electronically Signed) Final Date: 17 September 2021 14:11 S
[2021-09-17 13:38] LABS: Add Urine Microscopic? YES; Bilirubin Urine Neg (Negative); Blood Urine 3+ (Negative); Glucose Urine UA Norm (Normal); Ketones Urine Negative (Negative); Leukocyte Esterase Urine 2+ (Negative); Nitrate Urine Positive (Negative); Protein Urine 1+ (Negative); Specific Gravity, Urine 1.015 (1.005-1.030); Urine Appearance Hazy (CLEAR); Urine Color Yellow (Yellow); Urobilinogen Urine 1 mg/dL (Negative); pH Urine 5 (5-7)
[2021-09-17 13:39] LABS: Add Urine Culture? Yes; Bacteria Urine 1+ /hpf; Coarse Granular Casts Urine 0-4 /lpf; Mucus Urine 2+ /hpf; RBC Urine 15-25 /hpf (0-2); WBC Urine 55-80 /hpf (0-5)
[2021-09-17 13:51] LABS: Creatine Phosphokinase 1916 U/L (26-192)
[2021-09-17] MEDS: cefepime 2,000 MG in sodium chloride 0.9% (plus) 50 ML 100 MG IV (14:12)
[2021-09-17 14:20] LABS: Lactic Acid level (Lactate) 6.2 mmol/L (0.5-2.2)
--- NOTE | 2021-09-17 14:33 | P.CONIM_ITS ---
Providers/Reason For Consult Consulting Physician/Specialty*: Riggs/urology Reason for Consult*: Sepsis secondary to obstructive pyelonephritis with left proximal ureteral stone Requesting Physician: Evelyn Attending Physician: Angelita Rivas MD Primary Care Provider: Domingo Bowser History of Present Illness History of Present Illness Bonnie Pa is a 86 year old female who presented to the emergency department today with failure to thrive, confusion, inability to stand, shortness of breath. Work-up in the ER revealed An obstructing 8 mm left UPJ stone, UTI, sepsis, acute kidney injury, and white count of 25,000+ In the emergency department she developed hypotension and was placed on Levophed with improvement in her blood pressure. She has remained alert. No similar episodes but has had a longstanding history of recurrent/chronic urinary tract infections. It was recommended that she be taken to the operating room emergently for cystoscopy stent placement. She has been placed on IV antibiotics per Dr. Rivas . Continues on Levophed as of this dictation. ICU bed has been arranged. I reviewed with the patient the findings. Her daughter was present throughout. They both asked good questions. They gave permission to proceed with CYSTOSCOPY, LEFT ureteral stent placement emergently. I did review the CT scan. In the coronal view the stone measures approximately 11 mm. There are some additional calcifications in the left pyelocalyceal system. It appears that the kidney is somewhat atrophied probably from some degree of chronic or intermittent obstruction. Review of Systems Narrative: General: Chills, fever, malaise and fatigue. HEENT: Denies change in vision change in hearing difficulty swallow Cardiovascular: Denies chest pain. Does have chronic peripheral edema. Has had some dyspnea on exertion increasing lately. Respiratory: No cough or wheezing. Does have significant shortness of breath which has been increasing. No productive cough. GI: Abdominal pain primarily left-sided with nausea and vomiting. No change in her bowel habit : History of recurrent UTIs with dysuria urgency frequency chronically. Skin denies jaundice rashes or lesion Neuropsych: Has some confusion/decreased mentation associate with this episode No seizures, no localizing symptoms. Hematologic lymphatic: No abnormal bruising or bleeding Medications/Allergies Home Medications Medication Instructions Recorded Confirmed Last Taken Type anastrozole 1 mg tablet 1 mg PO BEDTIME 05/08/20 09/17/21 11/12/20 20:00 History umeclidinium 62.5 mcg-vilanterol 1 inh INHALATION DAILY #60 ea 06/25/21 09/17/21 Unknown Rx 25 mcg/actuation powdr for inhalation (Anoro Ellipta) aspirin 325 mg tablet 325 mg PO BEDTIME 09/17/21 09/17/21 Unknown History atorvastatin 10 mg tablet 10 mg PO BEDTIME 09/17/21 09/17/21 Unknown History furosemide 20 mg tablet (Lasix) 20 mg PO QAM 09/17/21 09/17/21 Unknown History isosorbide mononitrate 30 mg 15 mg PO BEDTIME 09/17/21 09/17/21 Unknown History tablet,extended release 24 hr levothyroxine 75 mcg tablet 75 mcg PO QAM 09/17/21 09/17/21 Unknown History potassium chloride 20 mEq 20 meq PO QAM 09/17/21 09/17/21 Unknown History tablet,extended release Allergies Allergy/AdvReac Type Severity Reaction Status Date / Time ciprofloxacin [From Cipro] Allergy Unknown Unknown Verified 09/17/21 12:31 metronidazole [From Flagyl] Allergy Unknown Unknown Verified 09/17/21 12:31 nitrofurantoin Allergy Unknown Unknown Verified 09/17/21 12:31 [From Macrobid] Penicillins Allergy Unknown Unknown Verified 09/17/21 12:31 Sulfa (Sulfonamide Allergy Unknown Unknown Verified 09/17/21 12:31 Antibiotics) hydrochlorothiazide Allergy Unknown Verified 09/17/21 12:30 triamterene Allergy Unknown Verified 09/17/21 12:30 Current Medications Generic Name Dose Route Start Last Admin Trade Name Freq PRN Reason Stop Dose Admin Norepinephrine Bitartrate 8 mg 508 mls @ 0 mls/hr 09/17/21 12:15 09/17/21 12:39 / Dextrose IV 8 mcg/min .Q0M ALBERT 30.48 mls/hr Administration Protocol Per Protocol PFSH Acute PFSH: Medical History Abnormal stress test (~07/2020) with subsequent cath without obstructive disease 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, invasive ductal carcinoma, 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, treated with radiotherapy ending 10/2018, lumpectomy, on arimidex Congestive heart failure Diastolic, grade 1, EF 60% on echo 03/2020 History of bone density study (~07/2021) osteopenia History of breast cancer History of left heart catheterization (~11/2020) with right heart cath, PCWP 23 No significant disease in LAD, left main, circumflex or RCA EF 50% History of PFTs 04/2020 obstructive ventilatory defect, normal DLCO, normal post- bronchodilator spirometry History of pulmonary embolism (~2004) Hyperlipidemia Hypothyroidism Kidney stones Osteopenia Pulmonary hypertension RVSP 40.9 mmHg on echo 03/2020 Recurrent urinary tract infection Surgical History History of breast biopsy History of bunionectomy History of cataract surgery History of detached retina repair History of hysterectomy History of lumpectomy right sided Status post cholecystectomy Status post cystoscopy Family History Mother No problems noted. Sister Cancer multiple myeloma Son Myocardial infarction Father CAD (coronary artery disease) Other Diabetes Social History Smoking and tobacco status: never smoked Second hand smoke exposure: Yes Alcohol intake: never Substance/Drug Use: never Caregiver/support person: Yes Lives independently: Yes Household members: family Marital status: / Current occupational status: retired Pets and animals: Yes Current gender identity: Female Vitals/I&O/Wt Last Vital Signs Pulse 82 09/17/21 12:51 Resp 30 H 09/17/21 12:51 BP 94/60 09/17/21 12:51 Pulse Ox 92 09/17/21 12:51 Weight last 48 hrs Weight 167 lb Physical Exam Const: COMMON NORMALS: no acute distress; negative for healthy appearing HENMT: COMMON NORMALS: normocephalic and atraumatic HEAD & SCALP: normocephalic and atraumatic Eye: COMMON NORMALS: no scleral icterus Neck/C-Spine: OTHER: Good range of motion Lymph: OTHER: No palpable lymphadenopathy Resp: COMMON NORMALS: No retractions Cardio: OTHER: Tachycardic GI: OTHER: Soft. No palpable mass. Tenderness in left upper quadrant. : OTHER: Bladder is nondistended Klein draining purulent urine. Atrophic external female genitalia. Normal urethra and urethral meatus. No obvious discharge Extremity: NARRATIVE EXTREMITY EXAM: Good range of motion Neuro: OTHER: No slurred speech, seizure activity etc. Psych: COMMON NORMALS: mental status grossly normal, cooperative and speech normal SPEECH: Yes normal speech Urinary Catheter Management: Klein: Cath Placed During This Visit: yes Urinary Catheter Date of Insertion: 09/17/21 Urinary Catheter Time of Insertion: 12:54 Data : 09/17/21 10:40 09/17/21 10:40 Micro: Microbiology 09/17/21 11:31 Blood Culture - Preliminary Blood SPECIMEN COLLECTED 09/17/21 11:30 Blood Culture - Preliminary Blood SPECIMEN COLLECTED A&P Assessment and plan (1) Septic shock: Secondary to obstructive pyelonephritis from 8 mm stone with grossly purulent UA. Status: Acute (2) Acute pyelonephritis: Status: Acute (3) Hydronephrosis with urinary obstruction due to renal calculus: See above Status: Acute (4) Acute renal failure: Combination medical and obstructive Status: Acute Qualifiers: Acute renal failure type: with other specified pathological lesion Qualified Code(s): N17.8 - Other acute kidney failure Consult Attestations Medical Necessity Statement: Critically ill. High risk patient. Will be taken to the operating room emergently with ICU care arranged postop. Reviewed the life-threatening condition that the patient is in with family and the patient. Coding Level of Care Code Acute Associate Creative Director for [facility] Fwd Exam Detailed Diagnoses Septic shock A41.9; R65.21 Acute pyelonephritis N10 Hydronephrosis with urinary obstruction due to renal calculus N13.2 Acute renal failure N17.8 Acute renal failure type: with other specified pathological lesion
--- NOTE | 2021-09-17 15:13 | SC_ITS ---
WS: [id number] INTRAOPERATIVE TECHNIQUE: 2 Spot fluoroscopic images for intraoperative purposes. FLUOROSCOPY TIME: 13.6 seconds CLINICAL INFORMATION: cysto, stent COMPARISON: None. FINDINGS: Fluoroscopy used for ureteral stent placement. LEFT renal parenchymal calculi and proximal ureteral c alculus. SC/C-arm FL for Urology IMPRESSION: Images obtained for intraoperative purposes.
--- NOTE | 2021-09-17 15:34 | P.OP_ITS ---
Operative Report Date of procedure: September 17, 2021 Pre-op diagnosis: Preop Diagnosis sepsis secondary to obstructive pyelonephritis, left proximal ureteral stone Post-op diagnosis: sepsis secondary to obstructive pyelonephritis, left proximal ureteral stone Procedure done: Cystoscopy, left ureteral stent placement (7 Dominican by 26 cm double- pigtail without string) Implants: Left ureteral stent Specimens removed/disposition: None Pathology: None Surgeon: Oneil Estimated blood loss: None Urine output: Not measured Complications: None Findings: Large stone measuring approximate 11 mm bypassed with guidewire easily. Stent left indwelling with good function confirmed. Brief History: Mrs. Pa is a very pleasant 86-year-old white female admitted in septic shock secondary to obstructive pyelonephritis associated with 11 mm left proximal ureteral stone and grossly purulent urine in a patient with history of recurrent urinary tract infections consistent with chronic cystitis. Procedure: After emergent evaluation examination and obtaining of informed consent she was taken to the operating suite on 09/17/2021 where general anesthesia was administered without difficulty after appropriate timeout was performed, SCDs confirmed to be functioning, preoperative antibiotics administered, beta-vicki protocol confirmed. Prepped and draped in usual sterile fashion in dorsolithotomy position paying careful attention to avoiding pressure points. 21 Dominican cystoscope with 30 degree lens was introduced into the urethral meatus and advanced into the bladder under videoscopy. Bladder was systematically examined. There was lot of purulence in the bladder. Some changes of chronic cystitis noted. A flexible tip guidewire was then advanced up the left ureter bypassing the stone easily. Curled in the area of the upper pole calyx and then a 7 Dominican by 26 cm double-pigtail stent was advanced over the guidewire through the cystoscope into appropriate position as confirmed via fluoroscopy and cystoscopy. The stent was confirmed to be draining purulent material. The bladder was then drained with a 18 Dominican Klein catheter. Catheter was placed to dependent drainage and the procedure was completed. She tolerated procedure well. She remained hemodynamically stable throughout. There were no untoward events. Patient transferred to ICU. PLANS: 1. Critical care treatment by hospitalist 2. I will plan on delayed treatment of the stone after she recovers from the infectious complications.
[2021-09-17] MEDS: albumin 12.5 GM/250 ML VIAL IV (15:45)
--- NOTE | 2021-09-17 16:28 | ECG_ITS ---
[facility] Test Date: 2021-09-17 Pat Name: Bonnie Pa Department: Room: ICU11 Gender: Female Director Customer: : [id number] Requested By: Jaciel Hopkins Order Number: [id number] Adrian MD: Micki Ring M.D. Measurements Intervals [place] Rate: 75 P: 51 HI: 145 QRS: -12 QRSD: 119 T: -5 QT: 422 QTc: 472 Interpretive Statements SINUS RHYTHM LOW QRS VOLTAGE IN PRECORDIAL LEADS [QRS DEFLECTION < 1.0 mV IN CHEST LEADS] INCOMPLETE RIGHT BUNDLE BRANCH BLOCK [90+ ms QRS DURATION, TERMINAL R IN V1/V2, 40+ ms S IN I/aVL/V4/V5/V6] Compared to ECG 09/17/2021 10:26:22 No significant changes Electronically Signed On 09-18-2021 14:47:10 CHILD & ADOLESCENT PSYCHIATRIST by Micki Ring M.D. [id number]
--- NOTE | 2021-09-17 16:35 | ANES.PREANE2 ---
Pre-Anesthetic Assessment Height/Weight: Height 1.6 m Weight 75.75 kg Temp Pulse Resp BP Pulse Ox 98.7 F 75 18 99/54 97 09/17/21 15:37 09/17/21 16:12 09/17/21 16:12 09/17/21 16:12 09/17/21 16:12 Preop Diagnosis: Unexplained shortness of breath with abnormal stress test Operation Date: 09/17/21 14:40 Proposed Procedures p Cystoscopy(Not Applicable) - Raul Riggs MD s Ureteral Stent Placement(Not Applicable) - Raul Riggs MD Familial anesthetic complications: None Was Beta Huan taken within 24 hours: N/A Was Clonidine taken within 24 hours: N/A Social No alcohol and No tobacco Exam alert, oriented x 3, clear to auscultation bilaterally and regular rate & rhythm Airway Submandibular: within normal limits Cervical ROM: within normal limits Dentition: false (upper) Pulmonary Asthma CV/HEM Coronary Artery Disease, Congestive Heart Failure (EF 50%) and Hypertension Septic shock on levophed Chronic Renal Insufficiency Acute renal failure, obstructive uropathy GI Gastroesophageal Reflux Disease Metabolic Thyroid Disease Anesthetic Plan ASA status: 4E Anesthesia: General Risk of > 500 ml blood loss (7ml/kg in children): No Medications/Allergies Home Medications Medication Instructions Recorded Confirmed Last Taken Type anastrozole 1 mg tablet 1 mg PO BEDTIME 05/08/20 09/17/21 11/12/20 20:00 History umeclidinium 62.5 mcg-vilanterol 1 inh INHALATION DAILY #60 ea 06/25/21 09/17/21 Unknown Rx 25 mcg/actuation powdr for inhalation (Anoro Ellipta) aspirin 325 mg tablet 325 mg PO BEDTIME 09/17/21 09/17/21 Unknown History atorvastatin 10 mg tablet 10 mg PO BEDTIME 09/17/21 09/17/21 Unknown History furosemide 20 mg tablet (Lasix) 20 mg PO QAM 09/17/21 09/17/21 Unknown History isosorbide mononitrate 30 mg 15 mg PO BEDTIME 09/17/21 09/17/21 Unknown History tablet,extended release 24 hr levothyroxine 75 mcg tablet 75 mcg PO QAM 09/17/21 09/17/21 Unknown History potassium chloride 20 mEq 20 meq PO QAM 02/15/22 02/15/22 Unknown History tablet,extended release Allergies Allergy/AdvReac Type Severity Reaction Status Date / Time ciprofloxacin [From Cipro] Allergy Unknown Unknown Verified 09/17/21 12:31 metronidazole [From Flagyl] Allergy Unknown Unknown Verified 09/17/21 12:31 nitrofurantoin Allergy Unknown Unknown Verified 09/17/21 12:31 [From Macrobid] Penicillins Allergy Unknown Unknown Verified 09/17/21 12:31 Sulfa (Sulfonamide Allergy Unknown Unknown Verified 09/17/21 12:31 Antibiotics) hydrochlorothiazide Allergy Unknown Verified 09/17/21 12:30 triamterene Allergy Unknown Verified 09/17/21 12:30 Current Medications Generic Name Dose Route Start Last Admin Trade Name Freq PRN Reason Stop Dose Admin Norepinephrine Bitartrate 8 mg 508 mls @ 0 mls/hr 09/17/21 12:15 09/17/21 12:39 / Dextrose IV 8 mcg/min .Q0M ALBERT 30.48 mls/hr Administration Protocol Per Protocol Albumin Human 12.5 gm in 250 mls @ 300 mls/hr 09/17/21 16:09 09/17/21 15:45 Albumin IV 09/17/21 16:58 300 mls/hr ONCE ONE Administration [facility] Anesthesia Medical History Abnormal stress test (~07/2020) with subsequent cath without obstructive disease 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, invasive ductal carcinoma, ER/SC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, treated with radiotherapy ending 10/2018, lumpectomy, on arimidex Congestive heart failure Diastolic, grade 1, EF 60% on echo 03/2020 History of bone density study (~07/2021) osteopenia History of breast cancer History of left heart catheterization (~11/2020) with right heart cath, PCWP 23 No significant disease in LAD, left main, circumflex or RCA EF 50% History of PFTs 04/2020 obstructive ventilatory defect, normal DLCO, normal post-bronchodilator spirometry History of pulmonary embolism (~2004) Hyperlipidemia Hypothyroidism Kidney stones Osteopenia Pulmonary hypertension RVSP 40.9 mmHg on echo 03/2020 Recurrent urinary tract infection Surgical History History of breast biopsy History of bunionectomy History of cataract surgery History of detached retina repair History of hysterectomy History of lumpectomy right sided Status post cholecystectomy Status post cystoscopy Family History Mother No problems noted. Sister Cancer multiple myeloma Son Myocardial infarction Father CAD (coronary artery disease) Other Diabetes Social History Smoking and tobacco status: never smoked Second hand smoke exposure: Yes Alcohol intake: never Substance/Drug Use: never Caregiver/support person: Yes Lives independently: Yes Household members: family Marital status: / Current occupational status: retired Pets and animals: Yes Current gender identity: Female Data Anesthesia : 09/17/21 10:40 09/17/21 10:40 Short CBC 09/17/21 Range/Units 10:40 WBC 25.9 H (4.0-10.0) 10^3/uL Hgb 11.3 L (11.5-15.3) g/dL Hct 36.1 L (37.0-47.0) % MCV 92.8 (81-99) fl Plt Count 264 (130-400) 10^3/cmm BMP 09/17/21 10:40 Sodium 135 L Potassium 4.0 Chloride 97 L Carbon Dioxide 14 L BUN 35 H Creatinine 3.2 H Glucose 108 Calcium 8.8 Cardiac Enzymes 09/17/21 09/17/21 09/17/21 Range/Units 10:40 10:40 10:40 Creatine Kinase 1916 H* (26-192) U/L Troponin T Baseline 484 H* (0-10) ng/L Troponin T 120 Minute (0-10) ng/L Delta Troponin T (0-10) ABS# NT-Pro-B Natriuret Pep 54429 H (0-450) pg/mL 09/17/21 Range/Units 12:38 Creatine Kinase (26-192) U/L Troponin T Baseline (0-10) ng/L Troponin T 120 Minute 400.0 H (0-10) ng/L Delta Troponin T -84.0 L (0-10) ABS# NT-Pro-B Natriuret Pep (0-450) pg/mL Liver Function 09/17/21 Range/Units 10:40 Total Bilirubin 1.0 (0.15-1.2) mg/dL AST 131 H (0-32) U/L ALT 52 H (0-33) U/L Alkaline Phosphatase 199 H (35-105) IU/L Albumin 2.9 L (3.5-5.2) g/dL Urine 09/17/21 Range/Units 12:49 Urine Color Yellow (Yellow) Urine Appearance Hazy A (CLEAR) Urine pH 5 (5-7) Ur Specific [place] 1.015 (1.005-1.030) Urine Protein 1+ H (Negative) Urine Glucose (UA) Norm (Normal) Urine Ketones Negative (Negative) Urine Nitrate Positive H (Negative) Urine Bilirubin Neg (Negative) Ur Leukocyte Esterase 2+ H (Negative) Urine RBC 15-25 H (0-2) /hpf Urine WBC 55-80 H (0-5) /hpf COVID Results 09/17/21 10:52 Coronavirus 229E (PCR) Not detected SARS-CoV-2 (PCR) Not detected ABG 09/17/21 11:04 Specimen Type Arterial Sample Site Brachial, right ABG pH 7.41 ABG pCO2 26.1 L ABG pO2 50.9 L ABG HCO3 16.4 L ABG O2 Saturation 86.3 ABG Base Excess -6.7 L A-a O2 Gradient 8.7 O2 Delivery Device Room air FiO2 21.0 Microbiology 09/17/21 11:31 Blood Culture - Preliminary Blood SPECIMEN COLLECTED 09/17/21 11:30 Blood Culture - Preliminary Blood SPECIMEN COLLECTED Cardiac Studies: Echocardiogram Ultrasound 03/06/20 Sestamibi Stress Test (Cardiology) 07/12/20
--- NOTE | 2021-09-17 16:37 | ANE.PACU2 ---
Inpatient post-anesthesia follow up: Airway intact: Yes Vital signs: Temperature 98.7 F Pulse Rate 75 Respiratory Rate 18 Blood Pressure 99/54 Pulse Oximetry 97 Oxygen Delivery Me thod Nasal Cannula Oxygen Flow Rate 3 Fraction of Inspir ed Oxygen Hydration adequate: No Nausea and vomiting: No Pain level: 2 Mental status: Baseline Additional Comments: Stable in PACU weaning levo, albumin and CaCl given
[2021-09-17] MEDS: docusate sodium 100 mg Capsule PO (18:37)
[2021-09-17] MEDS: heparin 5,000 unit/mL INJ 1 mL 5000 UNIT SUBCUT (18:37)
[2021-09-17 21:09] LABS: Troponin 5 6HR 283.8 ng/L (0-10)
[2021-09-17] MEDS: aspirin 325 mg Tablet PO (21:48)
[2021-09-18] VITALS (165 sets, daily range): BP systolic 85–131; BP diastolic 34–80; PULSE 57–110; RESP 14–38; TEMP 36.4–36.7; O2SAT 78–100
[2021-09-18 03:30] LABS: Basophils # 0.1 10^3/uL (0.0-0.1); Basophils % 0.6 %; Eosinophils # 0.3 10^3/uL (0.0-0.8); Eosinophils % 1.7 %; Hematocrit 31.4 % (37.0-47.0); Lymphocytes # 0.5 10^3/uL (0.8-4.8); Mean Corpuscular HGB Conc 31.8 g/dL (30.0-36.0); Mean Corpuscular Hemoglobin 29.4 pg (28.0-34.0); Mean Corpuscular Volume 92.4 fl (81-99); Mean Platelet Volume 11.3 fL (7.4-10.4); Monocytes # 0.6 10^3/uL (0.2-0.9); Monocytes % 3.1 %; Neutrophils % 90.7 %; Nucleated Red Blood Cells % 0 %; Platelet Count 208 10^3/cmm (130-400); Red Cell Distribution Width 14.5 % (12.1-15.1); White Blood Count 17.8 10^3/uL (4.0-10.0)
[2021-09-18 03:58] LABS: Alanine Aminotransferase 44 U/L (0-33); Albumin Level 2.4 g/dL (3.5-5.2); Alkaline Phosphatase 151 IU/L (35-105); Aspartate Amino Transferase 103 U/L (0-32); Blood Urea Nitrogen 44 mg/dL (8-23); Carbon Dioxide 20 mmol/L (22-29); Chloride 109 mmol/L (98-107); Globulin 4.2 g/dL (1.3-4.6); Glucose 152 mg/dL (65-115); Osmolality Calculated 308 mOsm/kg (285-295); Sodium 142 mmol/L (136-145); Total Bilirubin 0.8 mg/dL (0.15-1.2); Total Protein 6.6 g/dL (6.6-8.7)
[2021-09-18] MEDS: heparin 5,000 unit/mL INJ 1 mL 5000 UNIT SUBCUT ×2 (03:58→15:35)
[2021-09-18 04:01] LABS: Creatinine Clr Calc Pharmacy 15.6988
[2021-09-18 04:20] LABS: Slide Review Slide Review Perform
[2021-09-18] MEDS: levothyroxine 75 mcg Tablet PO (06:17)
--- NOTE | 2021-09-18 07:33 | P.PN_ITS ---
Subjective Subjective: Patient was seen and examined this morning, she was worried about the current ongoing infection. Currently on minimum of Levophed, good urine output, serum creatinine is improving, WBC count is trending down.Has remained afebrile. Medications: Medication Review Details: Generic Name Dose Route Start Last Admin Trade Name Xiomara PRN Reason Stop Dose Admin Aspirin 325 mg 09/17/21 21:00 09/17/21 21:48 Aspirin 325 Mg T ablet PO 325 mg BEDTIME ALBERT Administration Docusate Sodium 100 mg 09/17/21 18:00 09/18/21 09:04 Docusate Sodium 100 Mg Capsule PO 100 mg BID ALBERT Administration Heparin Sodium (Po rcine) 5,000 unit 09/17/21 16:30 09/18/21 03:58 Heparin 5,000 Un it/Ml Inj 1 Ml SUBCUT 5,000 unit Q12H ALBERT Administration Norepinephrine Bit artrate 8 mg 508 mls @ 0 mls/h r 09/17/21 12:15 09/17/21 12:39 / Dextrose IV 8 mcg/min .Q0M ALBERT 30.48 mls/hr Administration Protocol Per Protocol Imipenem/Cilastati n Sodium 250 100 mls @ 200 mls /hr 09/17/21 15:30 09/18/21 04:30 mg/ Sodium Chlor luke IV Infused Q12H ALBERT Infusion Protocol Vancomycin HCl 1,0 00 mg/ 250 mls @ 250 mls /hr 09/18/21 12:00 09/18/21 12:38 Sodium Chloride IV 250 mls/hr Q48H ALBERT Administration Protocol Levothyroxine Sodi um 75 mcg 09/18/21 06:00 09/18/21 06:17 Levothyroxine 75 Mcg Tablet PO 75 mcg QAM ALBERT Administration Vitals/I&O/Wt Last Vital Signs Temp 97.6 F 09/18/21 06:00 Pulse 68 09/18/21 07:11 Resp 16 09/18/21 07:11 BP 99/34 09/18/21 07:11 Pulse Ox 94 09/18/21 07:11 09/17/21 09/18/21 09/18/21 22:59 06:59 14:59 Intake Total 600 / 600 100 / 700 Output Total 500 / 500 1300 / 1800 Balance 100 / 100 -1200 / -1100 Weight last 48 hrs Weight 75.75 kg Physical Exam Const: COMMON NORMALS: patient oriented x3 HENMT: COMMON NORMALS: normocephalic, atraumatic and external ears normal HEAD & SCALP: normocephalic and atraumatic EXTERNAL EAR: Yes external ears normal Eye: COMMON NORMALS: no scleral icterus GENERAL EYE: appearance normal, both eyes and all related structures Chest: COMMONS NORMALS: normal inspection of the chest and normal palpation of entire chest wall CHEST: Yes Symmetrical chest wall rise Resp: COMMON NORMALS: normal respiratory effort, No retractions, No use of accessory muscles and clear to auscultation bilaterally EFFORT & INSPECTION: Yes symmetric chest movement AUSCULTATION: clear to auscultation bilaterally Cardio: COMMON NORMALS: regular rate, regular rhythm, S1 normal heart sound present, S2 normal heart sound present, No gallops present (Cardio), No murmurs present (Cardio), No rub (Cardio) and Peripheral pulses 2+ throughout RATE: regular rate RHYTHM: regular rhythm HEART SOUNDS: S1 normal heart sound present and S2 normal heart sound present PERIPHERAL PULSES: Peripheral pulses 2+ throughout GI: COMMON NORMALS: Normal to inspection, nondistended, normoactive bowel sounds present, Soft to palpation, non-tender, No hepatosplenomegaly present and no masses AUSCULTATION: Yes normoactive bowel sounds PALPATION: Yes Soft to palpation and Yes No hepatosplenomegaly present RECTAL EXAM: deferred Extremity: COMMON NORMALS: no clubbing, cyanosis or edema and no pedal edema Neuro: COMMON NORMALS: patient oriented x3 Urinary Catheter Management: Klein: Cath Placed During This Visit: yes, but has since been removed by the nurse Reason for Continuing Indwelling Catheter: Acute Urinary Retention or Obstruction Urinary Catheter Date of Insertion: 09/17/21 Urinary Catheter Time of Insertion: 15:30 Date Urinary Catheter Removed: 09/17/21 Time Urinary Catheter Discontinued: 15:15 Data : 09/18/21 02:57 09/18/21 02:57 Micro: Microbiology 09/17/21 11:31 Blood Culture - Preliminary Blood SPECIMEN COLLECTED 09/17/21 11:30 Blood Culture - Preliminary Blood SPECIMEN COLLECTED A&P Assessment and plan (1) Septic shock: As evidenced by multiorgan failure with leukocytosis with prominent left shift, hypotension not responding to fluids necessitating pressor support, confusion, acute renal failure, tachypnea and hypoxemia beyond usual, lactic acidosis, rhabdomyolysis, in the setting of acute pyelonephritis with obstructing kidney stone. Chronic medications also probable contributor to degree of hypotension. Status: Acute (2) Acute pyelonephritis: Status: Acute (3) Ureteropelvic junction (UPJ) obstruction, left: Status: Acute (4) Hydronephrosis with urinary obstruction due to renal calculus: Status: Acute (5) Acute renal failure: Secondary to obstructive process from stone and ATN from hypotension Status: Acute (6) Rhabdomyolysis: Nontraumatic related to weakness and infection, is also chronically on a statin Status: Acute (7) Elevated troponin: Right and left heart cath were performed in 2020 with no significant obstructive disease Type II process secondary to sepsis and renal failure rather than due to primary cardiac, , though presently unable to fully rule out pulmonary embolism as potential cause for elevation Status: Acute (8) Pulmonary hypertension: Status: Chronic (9) Congestive heart failure: Elevated BNP currently due to acute renal failure and sepsis, cannot completely rule out potential component of pulmonary embolism Status: Chronic Qualifiers: Heart failure chronicity: chronic Heart failure type: diastolic Qualified Code(s): I50.32 - Chronic diastolic (congestive) heart failure (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: Not currently acute, tachypnea more in line with compensated metabolic acidosis Status: Chronic (11) History of breast cancer: Remains on Arimidex Status: Chronic (12) History of pulmonary embolism: Some years ago, treated with anticoagulation for several years but none in a while Chronically on Arimidex Chronic right lower extremity edema and reports difficulty moving leg and increased pain in the right lower extremity recently No pleuritic chest pain but is hypoxic, AA gradient on initial ABG within normal range Status: Acute Plan Assessment: Septic shock secondary to acute pyelonephritis: NAKUL on CKD: Due to obstructive uropathy, currently in polyuric phase of ATN HFpEF : Currently compensated Rhabdomyolysis NSTEMI type II secondary to sepsis / NAKUL Pulmonary hypertension Asthma COPD overlap syndrome History of pulmonary embolism Transaminitis: Likely secondary to shock liver secondary to sepsis: Denies any abdominal pain, nausea vomiting. Hypothyroidism Plan: CT abdomen pelvis wo con:Advanced LEFT hydronephrosis with pelvocaliectasis and proximal ureterectasis. Obstructing proximal LEFT UPJ calculus measuring 8 mm. Inflammatory stranding and edema about the LEFT kidney. No hydronephrosis in RIGHT kidney. Follow blood culture Urine culture MRSA PCR Lower extremity venous duplex: Negative DVT Continue IV hydration with normal saline at 75 cc an hour Continue Levophed to maintain MAP greater than 65 Continue to monitor CMP Monitor CPK Monitor intake output charting Avoid nephrotoxic Follow 2D echo Continue telemetry monitoring Continue vancomycin and imipenem Continue aspirin Continue levothyroxine Continue heparin for DVT prophylaxis DuoNebs as needed Supplemental oxygen as needed Attestations Medical Necessity Statement*: Patient is to the hospital for management of septic shock. Time Spent in Patient Care: Greater than 35 minutes (>than 50% of time spent in counselling and/or direct pt care on unit) . Critical Care Time: 45 Other Attestations: The high probability of a clinically significant, sudden or life threatening deterioration of the patient's [] system(s) required my full and direct attention, intervention and personal management. The critical care time is as shown. This time is in addition to time spent performing any reported procedures but includes the following: [x] Data and vital sign review and interpretation [x] Patient assessment, examination and intervention [x] Documentation [x] Medication orders and management Coding Level of Care Code Acute Ground Crew Supervisor for Chg Fwd Exam Comprehensive Diagnoses Septic shock A41.9; R65.21 Acute pyelonephritis N10 Ureteropelvic junction (UPJ) obstruction, left N13.5 Hydronephrosis with urinary obstruction due to renal calculus N13.2 Acute renal failure N17.9 Rhabdomyolysis M62.82 Elevated troponin R77.8 Pulmonary hypertension I27.20 Congestive heart failure I50.32 Heart failure chronicity: chronic Heart failure type: diastolic Asthma-COPD overlap syndrome J44.9 History of breast cancer Z85.3 History of pulmonary embolism Z86.711
[2021-09-18] MEDS: docusate sodium 100 mg Capsule PO ×2 (09:04→17:19)
[2021-09-18] MEDS: vancomycin 1,000 MG in sodium chloride 0.9% 250 ML 250 MG IV (12:38)
[2021-09-18] MEDS: sodium chloride 0.9% 1,000 ML 75 ML IV (15:35)
[2021-09-18] MEDS: acetaminophen 325 mg Tablet 650 MG PO (17:19)
--- NOTE | 2021-09-18 18:27 | PC.NURSE ---
Shift Note Frequent safety and comfort rounds continue. Orders and/or nursing care completed as indicated. Patient monitored for response to intervention and treatment(s). Education provided includes oxygen safety. Patient and/or outside sales representative insurance verbalize understanding. Pt did well throughout shift. She did require some tylenol in the evening for her right arm hurting. -New 22g IV to left FA started using US. -Output 650ml.
[2021-09-18] MEDS: aspirin 325 mg Tablet PO (20:15)
[2021-09-19] VITALS (101 sets, daily range): BP systolic 84–119; BP diastolic 44–79; PULSE 57–130; RESP 13–37; TEMP 36.4–37.2; O2SAT 76–100
[2021-09-19 03:36] LABS: Basophils % 0.2 %; Eosinophils % 0.1 %; Hematocrit 29.7 % (37.0-47.0); Hemoglobin 9.4 g/dL (11.5-15.3); Lymphocytes # 0.5 10^3/uL (0.8-4.8); Lymphocytes % 3.7 %; Mean Corpuscular HGB Conc 31.6 g/dL (30.0-36.0); Mean Corpuscular Hemoglobin 29.3 pg (28.0-34.0); Mean Corpuscular Volume 92.5 fl (81-99); Mean Platelet Volume 11.4 fL (7.4-10.4); Monocytes # 0.7 10^3/uL (0.2-0.9); Monocytes % 4.8 %; Neutrophils # 12.33 10^3/uL (1.8-7.7); Neutrophils % 90.2 %; Nucleated Red Blood Cells % 0 %; Platelet Count 187 10^3/cmm (130-400); Red Blood Count 3.21 10^6/uL (4.1-5.3); Red Cell Distribution Width 14.6 % (12.1-15.1); White Blood Count 13.7 10^3/uL (4.0-10.0)
[2021-09-19 04:00] LABS: Alanine Aminotransferase 39 U/L (0-33); Albumin Level 2.1 g/dL (3.5-5.2); Alkaline Phosphatase 136 IU/L (35-105); Anion Gap 12.8 (5-19); Aspartate Amino Transferase 84 U/L (0-32); Blood Urea Nitrogen 52 mg/dL (8-23); Calcium 8.3 mg/dL (8.5-10.5); Carbon Dioxide 20 mmol/L (22-29); Chloride 108 mmol/L (98-107); Globulin 3.7 g/dL (1.3-4.6); Glucose 121 mg/dL (65-115); Osmolality Calculated 299 mOsm/kg (285-295); Potassium 3.8 mmol/L (3.5-5.1); Sodium 137 mmol/L (136-145); Total Bilirubin 0.6 mg/dL (0.15-1.2); Total Protein 5.8 g/dL (6.6-8.7)
[2021-09-19 04:15] LABS: Creatine Phosphokinase 695 U/L (26-192)
[2021-09-19] MEDS: sodium chloride 0.9% 1,000 ML 75 ML IV (05:03)
[2021-09-19] MEDS: heparin 5,000 unit/mL INJ 1 mL 5000 UNIT SUBCUT ×2 (05:04→15:32)
[2021-09-19] MEDS: levothyroxine 75 mcg Tablet PO (05:04)
--- NOTE | 2021-09-19 06:18 | PC.NURSE ---
Shift Note Frequent safety and comfort rounds continue. Orders and/or nursing care completed as indicated. Patient monitored for response to intervention and treatment(s). Education provided includes oxygen safety. Patient and/or parts sales representative verbalized understanding. Patient complained of R arm pain where previous IV was. Site is red and bruised. Ice applied and the patient said it completely relieved her pain. At this time, patient states that it is not hurting at all. Will continue to monitor.
[2021-09-19] MEDS: docusate sodium 100 mg Capsule PO (08:14)
[2021-09-19] MEDS: benzonatate 100 mg Capsule 200 MG PO (08:55)
--- NOTE | 2021-09-19 09:39 | PC.CHAP ---
Pastoral Care Encounter/Spiritual Assessment Type of Contact [] Declined commercial ocean clammer visit [] Patient/Family/Request visit [] Outpatient visit [] Follow-up visit [] Physician referral [] Code/Alert [x] Routine visit [] Staff referral [] Actively dying [] Patient sleeping [] Family support [] [] Out of room [] Palliative care [] [] Receiving care in room [] Pre-surgical visit [] Trauma [] Long length of stay [x] ICU visit [] Other: Relational/Emotional Strength [] Patient feels connected with others/family/visitors/staff [] Distress [] Loneliness/isolation [] Abandonment Spirituality of Patient [] Person of Valeria [] Attends Sabianist of their Valeria [] Believes in Prayer [] Reads Bible or Orthodoxy materials [] There are Spiritual issues to be addressed Category Development Analyst Interventions [] Prayer [] Active listening [] Non-anxious presence [] Spiritual/emotional support [] Crisis/trauma care [] Spiritual counseling [] Bereavement support [] Provided bereavement packet [] Provided Bible/devotional materials [] Provided toy/stuffed animal, coloring book to patient or family member [] Provided Communion [] Anointing/[place] [] Salvation [] Completed spiritual assessment [] Other: Impact on Illness or Injury [] Angry [] Fearful [] Anxious [] Often cries [] Exhaustion [] Unable to work [] Unable to attend sikhism [] Unable to walk/stand [] Unable to read [] Unable to drive [] Unable to eat/drink [] Unable to sleep [] Unable to be with family [] Patient intubated [] Other: Summary Time spent with patient
--- NOTE | 2021-09-19 15:34 | PM.PN ---
Subjective Subjective: Patient was seen and examined this morning, she has slight cough, off Levophed, kidney function is improving, good urine output, WBC count is trending down. wants to go home Medications: Medication Review Details: Generic Name Dose Route Start Last Admin Trade Name Xiomara PRN Reason Stop Dose Admin Aspirin 325 mg 09/17/21 21:00 09/17/21 21:48 Aspirin 325 Mg T ablet PO 325 mg BEDTIME ALBERT Administration Docusate Sodium 100 mg 09/17/21 18:00 09/18/21 09:04 Docusate Sodium 100 Mg Capsule PO 100 mg BID ALBERT Administration Heparin Sodium (Po rcine) 5,000 unit 09/17/21 16:30 09/18/21 03:58 Heparin 5,000 Un it/Ml Inj 1 Ml SUBCUT 5,000 unit Q12H ALBERT Administration Norepinephrine Bit artrate 8 mg 508 mls @ 0 mls/h r 09/17/21 12:15 09/17/21 12:39 / Dextrose IV 8 mcg/min .Q0M ALBERT 30.48 mls/hr Administration Protocol Per Protocol Imipenem/Cilastati n Sodium 250 100 mls @ 200 mls /hr 09/17/21 15:30 09/18/21 04:30 mg/ Sodium Chlor luke IV Infused Q12H ALBERT Infusion Protocol Vancomycin HCl 1,0 00 mg/ 250 mls @ 250 mls /hr 09/18/21 12:00 09/18/21 12:38 Sodium Chloride IV 250 mls/hr Q48H ALBERT Administration Protocol Levothyroxine Sodi um 75 mcg 09/18/21 06:00 09/18/21 06:17 Levothyroxine 75 Mcg Tablet PO 75 mcg QAM ALBERT Administration Vitals/I&O/Wt Last Vital Signs Temp 97.7 F 09/19/21 08:01 Pulse 65 09/19/21 14:58 Resp 16 09/19/21 14:58 BP 92/51 09/19/21 14:16 Pulse Ox 93 09/19/21 14:58 09/19/21 09/19/21 09/19/21 06:59 14:59 22:59 Intake Total 1600 / 2950 924.25 / 924.25 Output Total 300 / 1575 Balance 1300 / 1375 924.25 / 924.25 Weight last 48 hrs Weight 74.843 kg Weight 75.75 kg Physical Exam Const: COMMON NORMALS: patient oriented x3 HENMT: COMMON NORMALS: normocephalic, atraumatic and external ears normal HEAD & SCALP: normocephalic and atraumatic EXTERNAL EAR: Yes external ears normal Eye: COMMON NORMALS: no scleral icterus GENERAL EYE: appearance normal, both eyes and all related structures Chest: COMMONS NORMALS: normal inspection of the chest and normal palpation of entire chest wall CHEST: Yes Symmetrical chest wall rise Resp: COMMON NORMALS: normal respiratory effort, No retractions and No use of accessory muscles EFFORT & INSPECTION: Yes symmetric chest movement OTHER: Minimal expiratory wheezing, diminished air entry Cardio: COMMON NORMALS: regular rate, regular rhythm, S1 normal heart sound present, S2 normal heart sound present, No gallops present (Cardio), No murmurs present (Cardio), No rub (Cardio) and Peripheral pulses 2+ throughout RATE: regular rate RHYTHM: regular rhythm HEART SOUNDS: S1 normal heart sound present and S2 normal heart sound present PERIPHERAL PULSES: Peripheral pulses 2+ throughout GI: COMMON NORMALS: Normal to inspection, nondistended, normoactive bowel sounds present, Soft to palpation, non-tender, No hepatosplenomegaly present and no masses AUSCULTATION: Yes normoactive bowel sounds PALPATION: Yes Soft to palpation and Yes No hepatosplenomegaly present RECTAL EXAM: deferred Extremity: COMMON NORMALS: no clubbing, cyanosis or edema and no pedal edema Neuro: COMMON NORMALS: patient oriented x3 Urinary Catheter Management: Klein: Cath Placed During This Visit: yes, but has since been removed by the nurse Reason for Continuing Indwelling Catheter: Accurate Measurement of Urinary Output in Critically Ill Patients Urinary Catheter Date of Insertion: 09/17/21 Urinary Catheter Time of Insertion: 15:30 Date Urinary Catheter Removed: 09/17/21 Time Urinary Catheter Discontinued: 15:15 Data : 09/19/21 03:27 09/19/21 03:27 Micro: Microbiology 09/17/21 12:49 Urine Culture - Preliminary Urine,Clean Catch Gram Negative Rods 09/17/21 11:31 Blood Culture - Preliminary Blood NEGATIVE TO DATE 09/17/21 11:30 Blood Culture - Preliminary Blood NEGATIVE TO DATE A&P Assessment and plan (1) Septic shock: As evidenced by multiorgan failure with leukocytosis with prominent left shift, hypotension not responding to fluids necessitating pressor support, confusion, acute renal failure, tachypnea and hypoxemia beyond usual, lactic acidosis, rhabdomyolysis, in the setting of acute pyelonephritis with obstructing kidney stone. Chronic medications also probable contributor to degree of hypotension. Status: Acute (2) Acute pyelonephritis: Status: Acute (3) Ureteropelvic junction (UPJ) obstruction, left: Status: Acute (4) Hydronephrosis with urinary obstruction due to renal calculus: Status: Acute (5) Acute renal failure: Secondary to obstructive process from stone and ATN from hypotension Status: Acute (6) Rhabdomyolysis: Nontraumatic related to weakness and infection, is also chronically on a statin Status: Acute (7) Elevated troponin: Right and left heart cath were performed in 2020 with no significant obstructive disease Type II process secondary to sepsis and renal failure rather than due to primary cardiac, , though presently unable to fully rule out pulmonary embolism as potential cause for elevation Status: Acute (8) Pulmonary hypertension: Status: Chronic (9) Congestive heart failure: Elevated BNP currently due to acute renal failure and sepsis, cannot completely rule out potential component of pulmonary embolism Status: Chronic Qualifiers: Heart failure type: diastolic Heart failure chronicity: chronic Qualified Code(s): I50.32 - Chronic diastolic (congestive) heart failure (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: Not currently acute, tachypnea more in line with compensated metabolic acidosis Status: Chronic (11) History of breast cancer: Remains on Arimidex Status: Chronic (12) History of pulmonary embolism: Some years ago, treated with anticoagulation for several years but none in a while Chronically on Arimidex Chronic right lower extremity edema and reports difficulty moving leg and increased pain in the right lower extremity recently No pleuritic chest pain but is hypoxic, AA gradient on initial ABG within normal range Status: Acute Plan Assessment: Septic shock secondary to acute pyelonephritis: NAKUL on CKD: Due to obstructive uropathy, currently in polyuric phase of ATN HFpEF : Currently compensated Rhabdomyolysis NSTEMI type II secondary to sepsis / NAKUL Pulmonary hypertension Asthma COPD overlap syndrome History of pulmonary embolism Transaminitis: Likely secondary to shock liver secondary to sepsis: Denies any abdominal pain, nausea vomiting. Hypothyroidism Plan: CT abdomen pelvis wo con:Advanced LEFT hydronephrosis with pelvocaliectasis and proximal ureterectasis. Obstructing proximal LEFT UPJ calculus measuring 8 mm. Inflammatory stranding and edema about the LEFT kidney. No hydronephrosis in RIGHT kidney. Follow blood culture Urine culture:GNR MRSA PCR Lower extremity venous duplex: Negative DVT Was on IV hydration with normal saline at 75 cc an hour Continue Levophed to maintain MAP greater than 65 Continue to monitor CMP Monitor CPK Monitor intake output charting Avoid nephrotoxic Follow 2D echo Continue telemetry monitoring Continue vancomycin and imipenem Continue aspirin Continue levothyroxine Continue heparin for DVT prophylaxis DuoNebs as needed Supplemental oxygen as needed Attestations Medical Necessity Statement*: Patient is to the hospital for management of septic shock. Time Spent in Patient Care: Greater than 35 minutes (>than 50% of time spent in counselling and/or direct pt care on unit). Coding Level of Care Code Acute Public Relations Analyst for g Fwd Diagnoses Septic shock A41.9; R65.21 Acute pyelonephritis N10 Ureteropelvic junction (UPJ) obstruction, left N13.5 Hydronephrosis with urinary obstruction due to renal calculus N13.2 Acute renal failure N17.9 Rhabdomyolysis M62.82 Elevated troponin R77.8 Pulmonary hypertension I27.20 Congestive heart failure I50.32 Heart failure type: diastolic Heart failure chronicity: chronic Asthma-COPD overlap syndrome J44.9 History of breast cancer Z85.3 History of pulmonary embolism Z86.711
[2021-09-19] MEDS: ipratropium-albuterol 3 mL Neb INHALATION (20:16)
[2021-09-19] MEDS: aspirin 325 mg Tablet PO (20:28)
[2021-09-20] VITALS (56 sets, daily range): BP systolic 93–113; BP diastolic 49–68; PULSE 54–136; RESP 13–33; TEMP 36.2–36.8; O2SAT 66–97
[2021-09-20 02:20] LABS: Basophils # 0.1 10^3/uL (0.0-0.1); Basophils % 0.5 %; Eosinophils % 0.1 %; Hematocrit 32.7 % (37.0-47.0); Hemoglobin 10.2 g/dL (11.5-15.3); Lymphocytes # 0.6 10^3/uL (0.8-4.8); Lymphocytes % 5.2 %; Mean Corpuscular HGB Conc 31.2 g/dL (30.0-36.0); Mean Corpuscular Volume 92.9 fl (81-99); Mean Platelet Volume 11.7 fL (7.4-10.4); Monocytes # 0.6 10^3/uL (0.2-0.9); Monocytes % 5.3 %; Neutrophils # 9.41 10^3/uL (1.8-7.7); Neutrophils % 87.8 %; Nucleated Red Blood Cells % 0 %; Platelet Count 190 10^3/cmm (130-400); Red Blood Count 3.52 10^6/uL (4.1-5.3); Red Cell Distribution Width 14.4 % (12.1-15.1); White Blood Count 10.7 10^3/uL (4.0-10.0)
[2021-09-20 02:41] LABS: Alanine Aminotransferase 36 U/L (0-33); Albumin Level 2.3 g/dL (3.5-5.2); Alkaline Phosphatase 133 IU/L (35-105); Anion Gap 14.1 (5-19); Aspartate Amino Transferase 73 U/L (0-32); Blood Urea Nitrogen 49 mg/dL (8-23); Calcium 8.7 mg/dL (8.5-10.5); Carbon Dioxide 21 mmol/L (22-29); Chloride 106 mmol/L (98-107); Globulin 3.3 g/dL (1.3-4.6); Glucose 135 mg/dL (65-115); Osmolality Calculated 299 mOsm/kg (285-295); Potassium 4.1 mmol/L (3.5-5.1); Sodium 137 mmol/L (136-145); Total Bilirubin 0.4 mg/dL (0.15-1.2); Total Protein 5.6 g/dL (6.6-8.7)
[2021-09-20 02:58] LABS: Creatine Phosphokinase 533 U/L (26-192)
[2021-09-20] MEDS: heparin 5,000 unit/mL INJ 1 mL 5000 UNIT SUBCUT (04:48)
[2021-09-20] MEDS: levothyroxine 75 mcg Tablet PO (04:53)
--- NOTE | 2021-09-20 06:57 | PC.NURSE ---
Shift Note Frequent safety and comfort rounds continue. Orders and/or nursing care completed as indicated. Patient monitored for response to intervention and treatment(s). Education provided includes oxygen safety. Patient and/or chain sales representative verbalized understanding. Patient rested well and had an uneventful night.
[2021-09-20] MEDS: ipratropium-albuterol 3 mL Neb INHALATION (09:39)
--- NOTE | 2021-09-20 11:11 | P.DS_ITS ---
Discharge Providers Date of Admission: 09/17/21 13:27 Date of Discharge: September 20, 2021 Attending Provider at Admission: Angelita Rivas MD Attending Provider at Discharge: Marko Nagy MD Primary Care Provider: Domingo Bowser Diagnoses at Discharge Discharge Diagnosis (1) Septic shock: (2) Acute pyelonephritis: (3) Ureteropelvic junction (UPJ) obstruction, left: (4) Hydronephrosis with urinary obstruction due to renal calculus: (5) Acute renal failure: (6) Rhabdomyolysis: (7) Elevated troponin: (8) Pulmonary hypertension: Permanent problem details: RVSP 40.9 mmHg on echo 03/2020 (9) Congestive heart failure: Qualifiers: Heart failure chronicity: chronic Heart failure type: diastolic Qualified Code(s): I50.32 - Chronic diastolic (congestive) heart failure Permanent problem details: Diastolic, grade 1, EF 60% on echo 03/2020 (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: (11) History of breast cancer: (12) History of pulmonary embolism: Reason for Visit Reason for Visit: SOB INCREASING IN LAST WEEK Hospital Course Hospital Course 86 year old female who presented to the emergency room a chief complaint of being weak and not feeling well.On admission she was complaining of some nausea and difficulty keeping things down.?She denied any vomiting.? She had some chills without definitive fever.On further work up she was found to be in Septic shock secondary to acute pyelonephritis:, NAKUL on CKD: Due to obstructive uropathy, HFpEF : Currently compensated, Rhabdomyolysis, NSTEMI type II secondary to sepsis / NAKUL ,Pulmonary hypertension, Asthma COPD overlap syndrome, History of pulmonary embolism , Transaminitis: Likely secondary to shock liver secondary to sepsis: Denies any abdominal pain, nausea vomiting. Hypothyroidism.CT abdomen pelvis wo con:Advanced LEFT hydronephrosis with pelvocaliectasis and proximal ureterectasis. Obstructing proximal LEFT UPJ calculus measuring 8 mm. Inflammatory stranding and edema about the LEFT kidney.? No hydronephrosis in RIGHT kidney.s/p Cystoscopy, left ureteral stent placement (7 [place] by 26 cm double-pigtail without string) Blood culture: Urine culture:GNR: Pseudomonas aeruginosa: Sensitive to ciprofloxacin MRSA PCR: Negative Lower extremity venous duplex: Negative DVT. During hospital stay she was continued on broad-spectrum antibiotics, IV hydration, vasopressor support. To which she responded well, at the time of discharge she was hemodynamically stable, afebrile. Her other vitals and labs were stable.She was alert awake with sound mentation. NAKUL on CKD: Due to obstructive uropathy had resolved at the time of discharge serum creatinine was at his baseline, HFpEF : Was compensated, euvolemic at the time of discharge Rhabdomyolysis has resolved, NSTEMI type II secondary to sepsis / NAKUL, present on admit, No acute intervention was done , aspirin was continued, Transaminitis: Likely secondary to shock liver secondary to sepsis: Had resolved at the time of discharge. she was continue to manage for other comorbid conditions, namely Pulmonary hypertension Asthma COPD overlap syndrome , History of pulmonary embolism. Hypothyroidism: Levothyroxine was continued. She was discharged on p.o ciprofloxacin for another 14 days, she is due to see urology as an outpatient. Responded well to above medical and surgical management.She was discharged in stable condition to home. She will continue to follow primary care physician as an outpatient. Physical Exam Const: COMMON NORMALS: patient oriented x3 HENMT: COMMON NORMALS: normocephalic, atraumatic, hearing grossly normal bilaterally and external ears normal HEAD & SCALP: normocephalic and atraumatic EXTERNAL EAR: Yes external ears normal Eye: COMMON NORMALS: no scleral icterus GENERAL EYE: appearance normal, both eyes and all related structures Chest: COMMONS NORMALS: normal inspection of the chest and normal palpation of entire chest wall CHEST: Yes Symmetrical chest wall rise Resp: COMMON NORMALS: normal respiratory effort, No retractions, No use of accessory muscles and clear to auscultation bilaterally EFFORT & INSPECTION: Yes symmetric chest movement AUSCULTATION: clear to auscultation bilaterally Cardio: COMMON NORMALS: regular rate, regular rhythm, S1 normal heart sound present, S2 normal heart sound present, No gallops present (Cardio), No murmurs present (Cardio), No rub (Cardio) and Peripheral pulses 2+ throughout RATE: regular rate RHYTHM: regular rhythm HEART SOUNDS: S1 normal heart sound present and S2 normal heart sound present PERIPHERAL PULSES: Peripheral pulses 2+ throughout GI: COMMON NORMALS: Normal to inspection, nondistended, normoactive bowel sounds present, Soft to palpation, non-tender, No hepatosplenomegaly present and no masses AUSCULTATION: Yes normoactive bowel sounds PALPATION: Yes Soft to palpation and Yes No hepatosplenomegaly present RECTAL EXAM: deferred Extremity: COMMON NORMALS: no clubbing, cyanosis or edema and no pedal edema Neuro: COMMON NORMALS: patient oriented x3 Urinary Catheter Management: Klein: Cath Placed During This Visit: yes, but has since been removed by the nurse Reason for Continuing Indwelling Catheter: Accurate Measurement of Urinary Output in Critically Ill Patients Urinary Catheter Date of Insertion: 09/17/21 Urinary Catheter Time of Insertion: 15:30 Date Urinary Catheter Removed: 09/17/21 Time Urinary Catheter Discontinued: 15:15 Discharge Data Studies Completed and Pending Completed Studies During Hospitalization Category Date Time Status CT abdomen pelvis wo con [id number] Stat Cat Scan 09/17/21 12:11 Completed XR chest 1V portable [id number] Stat Exams 09/17/21 10:28 [place] [id number] Urgent Ultrasound 09/17/21 13:19 Completed Pending at discharge Category Date Time Status Blood Culture Routine Lab 09/20/21 09:27 Results Blood Culture Stat Lab 09/17/21 11:31 Results CBC Auto Diff [Complete Blood Count w/Auto] AM LABS Lab 09/21/21 04:00 Ordered CMP [Comprehensive Metabolic Panel] AM LABS Lab 09/21/21 04:00 Ordered CPK [Creatine Phosphokinase] AM LABS Lab 09/21/21 04:00 Ordered Radiology Impressions Chest X-Ray 09/17/21 10:28 IMPRESSION: 1. No acute findings. 2. Elevated right hemidiaphragm Abdomen/Pelvis CT 09/17/21 12:11 IMPRESSION: 1. Advanced LEFT hydronephrosis with pelvocaliectasis and proximal ureterectasis. Obstructing proximal LEFT UPJ calculus measuring 8 mm. 2. Inflammatory stranding and edema about the LEFT kidney. 3. No hydronephrosis in RIGHT kidney. 4. Prior cholecystectomy and hysterectomy. 5. Small esophageal hiatal hernia. 6. Trace pleural fluid lung bases. Slight micronodular infiltrate in the RIGHT middle lobe with bibasilar atelectasis. 7. Small amount of free fluid in the pelvis. 8. Sigmoid diverticulosis. 9. Klein catheter in place. Attempted notification Jaciel Chavis DO at 09/17/2021 1:21 PM. C-Arm Fluoroscopy 09/17/21 15:13 IMPRESSION: Images obtained for intraoperative purposes. Laboratory Results WBC 10.7 10^3/uL (4.0-10.0) H 09/20/21 02:00 RBC 3.52 10^6/uL (4.1-5.3) L 09/20/21 02:00 Hgb 10.2 g/dL (11.5-15.3) L 09/20/21 02:00 Hct 32.7 % (37.0-47.0) L 09/20/21 02:00 MCV 92.9 fl (81-99) 09/20/21 02:00 MCH 29.0 pg (28.0-34.0) 09/20/21 02:00 MCHC 31.2 g/dL (30.0-36.0) 09/20/21 02:00 RDW 14.4 % (12.1-15.1) 09/20/21 02:00 Plt Count 190 10^3/cmm (130-400) 09/20/21 02:00 MPV 11.7 fL (7.4-10.4) H 09/20/21 02:00 Neut % (Auto) 87.8 % 09/20/21 02:00 Lymph % (Auto) 5.2 % 09/20/21 02:00 [place] % (Auto) 5.3 % 09/20/21 02:00 Eos % (Auto) 0.1 % 09/20/21 02:00 Baso % (Auto) 0.5 % 09/20/21 02:00 Neut # (Auto) 9.41 10^3/uL (1.8-7.7) H 09/20/21 02:00 Lymph # (Auto) 0.6 10^3/uL (0.8-4.8) L 09/20/21 02:00 [place] # (Auto) 0.6 10^3/uL (0.2-0.9) 09/20/21 02:00 Eos # (Auto) 0.0 10^3/uL (0.0-0.8) 09/20/21 02:00 Baso # (Auto) 0.1 10^3/uL (0.0-0.1) 09/20/21 02:00 Nucleated RBC % (auto) 0 % 09/20/21 02:00 Total Counted 100 (0-100) 09/17/21 10:40 Atypical Lymphs % 0.0 % (0-5) 09/17/21 10:40 Absolute Neutrophils 24.9 10^3/cmm (1.4-6.5) H 09/17/21 10:40 Segmented Neutrophils 56 % 09/17/21 10:40 Abs Segm Neuts (Man) 14.5 10/cmm (1.6-7.1) H 09/17/21 10:40 Band Neutrophils 40.0 % 09/17/21 10:40 Abs Band Neuts (Man) 10.4 10^3/cmm (0.0-1.2) H 09/17/21 10:40 Absolute Lymphocytes 0.3 10^3/cmm (1.2-3.4) L 09/17/21 10:40 Lymphocytes (Manual) 1 % 09/17/21 10:40 Monocytes (Manual) 0.0 % 09/17/21 10:40 Absolute Monocytes 0.0 10^3/cmm (0.1-0.6) L 09/17/21 10:40 Eosinophils (Manual) 0 % 09/17/21 10:40 Absolute Eosinophils 0.0 10^3/cmm (0.0-0.7) 09/17/21 10:40 Basophils (Manual) 0.0 % 09/17/21 10:40 Absolute Basophils 0.0 10^3/cmm (0.0-0.2) 09/17/21 10:40 Metamyelocytes 3.0 % 09/17/21 10:40 Nucleated RBCs # 0.0 /100WBC 09/20/21 02:00 Platelet Estimate Normal (Normal) 09/17/21 10:40 Specimen Type Arterial 09/17/21 11:04 Sample Site Brachial, right 09/17/21 11:04 ABG pH 7.41 (7.35-7.45) 09/17/21 11:04 ABG pCO2 26.1 mmHg (35-45) L 09/17/21 11:04 ABG pO2 50.9 mmHg (80.0-100.0) L 09/17/21 11:04 ABG HCO3 16.4 mmol/L (22-26) L 09/17/21 11:04 ABG O2 Saturation 86.3 09/17/21 11:04 ABG Base Excess -6.7 mmol/L (-2.0-2.0) L 09/17/21 11:04 Matthew Test N/a 09/17/21 11:04 A-a O2 Gradient 8.7 mmHg (5-10) 09/17/21 11:04 Hematocrit 38.4 % (37-47) 09/17/21 11:04 Hgb O2 Saturation 85.2 % (95-100) L 09/17/21 11:04 Carboxyhemoglobin 0.8 %THgb (0.4-20.1) 09/17/21 11:04 Methemoglobin 0.5 % (0.4-1.5) 09/17/21 11:04 Total Hemoglobin 12.5 g/dL (12-16) 09/17/21 11:04 Sodium 136.0 mmol/L (131-143) 09/17/21 11:04 Potassium 3.5 mmol/L (3.5-5.0) 09/17/21 11:04 Glucose 127.0 mg/dL (70-115) H 09/17/21 11:04 Ionized Calcium 1.1 mmol/L (1.1-1.4) 09/17/21 11:04 O2 Delivery Device Room air 09/17/21 11:04 FiO2 21.0 % 09/17/21 11:04 Voice Writing Reporter ID [email or web address] 09/17/21 11:04 Sodium 137 mmol/L (136-145) 09/20/21 02:00 Potassium 4.1 mmol/L (3.5-5.1) 09/20/21 02:00 Chloride 106 mmol/L (98-107) 09/20/21 02:00 Carbon Dioxide 21 mmol/L (22-29) L 09/20/21 02:00 Anion Gap 14.1 (5-19) 09/20/21 02:00 BUN 49 mg/dL (8-23) H 09/20/21 02:00 Creatinine 1.6 mg/dL (0.5-0.9) H 09/20/21 02:00 GFR Calculation Not Reportable 09/20/21 02:00 Glucose 135 mg/dL (65-115) H 09/20/21 02:00 Calculated Osmolality 299 mOsm/kg (285-295) H 09/20/21 02:00 Lactic Acid 9.4 mmol/L (0.5-2.2) H* 09/17/21 10:40 Lactic Acid (Sepsis) 6.2 mmol/L (0.5-2.2) H* 09/17/21 13:55 Calcium 8.7 mg/dL (8.5-10.5) 09/20/21 02:00 Total Bilirubin 0.4 mg/dL (0.15-1.2) 09/20/21 02:00 AST 73 U/L (0-32) H 09/20/21 02:00 ALT 36 U/L (0-33) H 09/20/21 02:00 Alkaline Phosphatase 133 IU/L (35-105) H 09/20/21 02:00 Creatine Kinase 533 U/L (26-192) H* 09/20/21 02:00 Troponin T Baseline 484 ng/L (0-10) H* 09/17/21 10:40 Troponin T 120 Minute 400.0 ng/L (0-10) H 09/17/21 12:38 Delta Troponin T -84.0 ABS# (0-10) L 09/17/21 12:38 Troponin T Hi Sens 6Hr 283.8 ng/L (0-10) H 09/17/21 20:11 Troponin T Hi Sens 6Hr Delta -200.2 ng/L (0-12) L 09/17/21 20:11 NT-Pro-B Natriuret Pep 96670 pg/mL (0-450) H 09/17/21 10:40 Total Protein 5.6 g/dL (6.6-8.7) L 09/20/21 02:00 Albumin 2.3 g/dL (3.5-5.2) L 09/20/21 02:00 Globulin 3.3 g/dL (1.3-4.6) 09/20/21 02:00 Lipase 11 U/L (13-60) L 09/17/21 10:40 Urine Color Yellow (Yellow) 09/17/21 12:49 Urine Appearance Hazy (CLEAR) A 09/17/21 12:49 Urine pH 5 (5-7) 09/17/21 12:49 Ur Specific [place] 1.015 (1.005-1.030) 09/17/21 12:49 Urine Protein 1+ (Negative) H 09/17/21 12:49 Urine Glucose (UA) Norm (Normal) 09/17/21 12:49 Urine Ketones Negative (Negative) 09/17/21 12:49 Urine Blood 3+ (Negative) H 09/17/21 12:49 Urine Nitrate Positive (Negative) H 09/17/21 12:49 Urine Bilirubin Neg (Negative) 09/17/21 12:49 Urine Urobilinogen 1 mg/dL (Negative) H 09/17/21 12:49 Ur Leukocyte Esterase 2+ (Negative) H 09/17/21 12:49 Urine RBC 15-25 /hpf (0-2) H 09/17/21 12:49 Urine WBC 55-80 /hpf (0-5) H 09/17/21 12:49 Ur Squamous Epith Cells 5-10 /hpf (0-5) H 09/17/21 12:49 Amorphous Sediment Not Reportable 09/17/21 12:49 Urine Bacteria 1+ /hpf (NONE) H 09/17/21 12:49 Coarse Granular Casts 0-4 /lpf H 09/17/21 12:49 Urine Mucus 2+ /hpf 09/17/21 12:49 Coronavirus 229E (PCR) Not detected (NOT DETECT) 09/17/21 10:52 SARS-CoV-2 (PCR) Not detected (NOT DETECT) 09/17/21 10:52 Vitals Last Vital Signs Temp 97.1 F L 09/20/21 04:00 Pulse 88 09/20/21 09:42 Resp 16 09/20/21 09:39 BP 103/63 09/20/21 09:00 Pulse Ox 93 09/20/21 09:39 Discharge Plan Discharge Patient Disposition: Home Condition: Stable Prescriptions: New ciprofloxacin HCl 500 mg tablet 500 mg PO DAILY 14 Days Qty: 14 0RF Continued anastrozole 1 mg tablet 1 mg PO BEDTIME 0RF Anoro Ellipta 62.5-25 mcg/actuation blister with device 1 inh inhalation DAILY Qty: 60 3RF levothyroxine 75 mcg tablet 75 mcg PO QAM 0RF atorvastatin 10 mg tablet 10 mg PO BEDTIME 0RF aspirin 325 mg tablet 325 mg PO BEDTIME 0RF isosorbide mononitrate 30 mg tablet extended release 24 hr 15 mg PO BEDTIME 0RF Held Lasix 20 mg tablet 20 mg PO QAM 0RF Hold Instructions: Resume on 09/27/21. potassium chloride 20 mEq tablet extended release 20 meq PO QAM 0RF Hold Instructions: Resume on 09/27/21. Discharge Orders: Discharge Order (Routine); Ordered 09/20/21 Ordered By: Marko Nagy Other Ambulatory Orders: Basic Metabolic Panel (Routine) Timeframe: 1 Week Facility: [facility] - Location: Lab - Main Lab Ordered By: Marko Nagy Referrals: Domingo Bowser [Primary Care Provider] - 1 week (THIS CLINIC WILL CALL YOU TO SCHEDULE THIS APPOINTMENT, HAVE DISCUSSED WITH THEM , YOUR NEED FOR 1 WEEK POST HOSPITAL FOLLOW UP .) Raul Riggs MD [Physician] - 1 week (THIS APPOINTMENT HAS BEEN SCHEDULED , AT [facility] , THIS IS LOCATED ABOVE ,[facility] , APPOINTMENT FOR , ThursdaySEPTEMBER 27, AT 09:30 AM PLEASE HAVE LAB TEST DONE PRIOR TO THIS APPOINTMENT ,AT [facility] AT MAIN ENTRANCE. THEN TO CLINIC ) Discharge Activity: Resume usual activity Patient Instructions: Ciprofloxacin (By mouth) (Cipro), Benzonatate (By mouth) (Tessalon Perles, Zonatuss), Urinary Tract Infection in Women (DC), Sepsis (GEN), Cystoscopy (DC), Ureteral Stent Placement (DC), Opioid Safety Discharge Attestations Time Spent in Discharge Care*: greater than 30 min Specific Discharge Activities: educating patient, educating and/or supporting family/caregiver, discussing with pcp/other providers, discussing with bilingual patient support caseworker/social workers/dc planners, documenting/other paperwork and evaluating patient/reviewing data Quality Metrics Clinical Quality Measures [ No reported AMI, CVA or VTE this stay] Coding Level of Care Code Acute Chg FW DC note Exam Comprehensive Diagnoses Septic shock A41.9; R65.21 Acute pyelonephritis N10 Ureteropelvic junction (UPJ) obstruction, left N13.5 Hydronephrosis with urinary obstruction due to renal calculus N13.2 Acute renal failure N17.9 Rhabdomyolysis M62.82 Elevated troponin R77.8 Pulmonary hypertension I27.20 Congestive heart failure I50.32 Heart failure chronicity: chronic Heart failure type: diastolic Asthma-COPD overlap syndrome J44.9 History of breast cancer Z85.3 History of pulmonary embolism Z86.711
--- NOTE | 2021-09-20 11:41 | PC.SOCIAL ---
Pg 2 IMM Explained to pt Pg 2 IMM. No questions voiced. Provided pt a copy. Initialed, dated, & timed a copy & placed in chart.
[2021-09-20] MEDS: ciprofloxacin 500 mg Tablet PO (12:23)
[2021-09-20 17:29] LABS: Acinetobacter baumannii Not Detected (NOT DETECT); Bacteroides fragilis Not Detected (NOT DETECT); CTX-M Not Detected (NOT DETECT); Citrobacter Not Detected (NOT DETECT); Cronobacter sakazakii Not Detected (NOT DETECT); Enterobacter cloacae complex Not Detected (NOT DETECT); Enterobacter non cloacae Not Detected (NOT DETECT); Fusobacterium necrophorum Not Detected (NOT DETECT); Fusobacterium nucleatum Not Detected (NOT DETECT); Haemophilus influenzae Not Detected (NOT DETECT); IMP Resistance Gene Not Detected (NOT DETECT); KPC Resistance Gene Not Detected (NOT DETECT); Klebsiella pneumoniae group Not Detected (NOT DETECT); Morganella morganii Not Detected (NOT DETECT); NDM Resistance Gene Not Detected (NOT DETECT); Neisseria meningitidis Not Detected (NOT DETECT); OXA Resistance Gene Not Detected (NOT DETECT); Pan Candida Not Detected (NOT DETECT); Pan Gram-Positive Not Detected (NOT DETECT); Proteus mirabilis Not Detected (NOT DETECT); Pseudomonas aeruginosa Detected (NOT DETECT); Salmonella Not Detected (NOT DETECT); Serratia Not Detected (NOT DETECT); Serratia marcescens Not Detected (NOT DETECT); Stenotrophomonas maltophilia Not Detected (NOT DETECT); VIM Resistance Gene Not Detected (NOT DETECT)
== END 2021-09-20 13:12 | disposition home or self-care (01) | DRG 853 ==
LOC: ER 14:20 → ER IP 14:21 → ICU 15:47
PROVIDERS: Urology; Admitting Provider Hospitalist; Emergency Provider Family Medicine; PCP Family Medicine; Visit Provider Internal Medicine
PROC: 0TJB8ZZ Inspection of Bladder, Via Natural or Artificial Opening Endoscopic (ICD-10-PCS; CPT 52000; principal; 2021-09-17 14:40)
PROC: 0T778DZ Dilation of Left Ureter with Intraluminal Device, Via Natural or Artificial Opening Endoscopic (ICD-10-PCS; CPT 50605; 2021-09-17 14:40)
DX: A41.9 Sepsis, unspecified organism (principal); R65.21 Severe sepsis with septic shock; N17.0 Acute kidney failure with tubular necrosis; K72.00 Acute and subacute hepatic failure without coma; I21.A1 Myocardial infarction type 2; N13.6 Pyonephrosis; I50.32 Chronic diastolic (congestive) heart failure; M62.82 Rhabdomyolysis; Z86.711 Personal history of pulmonary embolism; J44.9 Chronic obstructive pulmonary disease, unspecified; C50.919 Malignant neoplasm of unspecified site of unspecified female breast; E78.5 Hyperlipidemia, unspecified; E03.9 Hypothyroidism, unspecified; Z87.442 Personal history of urinary calculi; I27.20 Pulmonary hypertension, unspecified; Z87.440 Personal history of urinary (tract) infections; I95.9 Hypotension, unspecified; N30.20 Other chronic cystitis without hematuria; Z79.811 Long term (current) use of aromatase inhibitors
CPT/HCPCS: 36415; 36600; 51702; 71045; 74176; 76000; 80051; 80053; 81001; 82330; 82550; 82805; 83605; 83690; 83880; 84484; 85007; 85025; 87040; 87077; 87086; 87150; 87186; 87205; 87635; 93005; 93971; 94640; 96365; 96367; 96372; 99285; J0692; J0743; J1644; J2370; J2930; J3010; J3370; J3490; J7030; J7050; P9041

== ENCOUNTER 2021-10-02 11:27 | Inpatient (IN) | payer MEDICARE, SELFPAY ==
[2021-10-02] VITALS (7 sets, daily range): BP systolic 111–163; BP diastolic 66–78; PULSE 65–77; RESP 14–22; TEMP 36.4–37.1; O2SAT 91–96; BMI 33.1; BMI 29.0
--- NOTE | 2021-10-02 | USCV_ITS ---
Transthoracic Echo Bonnie Pa Age: 86 Gender: F : 1935 Exam Date: 10/02/2021 22:34 Ordering Phys: Ronak Gaytan MD Technologist: PETRA [place]am [place] [facility] [place]: PEs BP: / HR: 65 Rhythm: Sinus Technical Quality: Adequate MEASUREMENTS (Male / Female) Normal Values 2D ECHO LV Diastolic Diameter PLAX 3.6 cm 4.2 - 5.9 / 3.9 - 5.3 cm LV Systolic Diameter PLAX 2.0 cm IVS Diastolic Thickness 1.4 cm 0.6 - 1.0 / 0.6 - 0.9 cm IVS Systolic Thickness 1.6 cm LVPW Diastolic Thickness 1.4 cm 0.6 - 1.0 / 0.6 - 0.9 cm LVPW Systolic Thickness 2.0 cm LVOT Diameter 1.9 cm LV Ejection Fraction 2D Teich 76.4 % LV Ejection Fraction MOD 2C 75.0 % LV Ejection Fraction 2C AL 74.6 % LA Diameter 4.4 cm LA Width 2.7 cm LA Height 4.8 cm RA Width 3.1 cm RA Height 3.7 cm Aorta at Sinotubular Diameter 2.5 cm M-MODE Aortic Annulus Diameter 3.1 cm LA Ao Ratio MM 1.4 MV E Point Septal Separation 0.5 cm DOPPLER AV Peak Velocity 121.7 cm/s LVOT Peak Velocity 65.0 cm/s AV Area Cont Eq vti 2.0 cm squared AV Area Cont Eq pk 1.5 cm squared MV Peak Velocity 76.0 cm/s MV Area PHT 2.6 cm squared Mitral E to A Ratio 0.5 MV E' Velocity 22.0 cm/s Mitral E to MV E' Ratio 5.5 Mitral E to LV E' Lateral Ratio 5.1 Mitral E to LV E' Septal Ratio 6.1 TR Peak Velocity 229.2 cm/s TR Peak Gradient 21.0 mmHg TR Mean Velocity 185.9 cm/s TR Mean Gradient 15.8 mmHg TR Velocity Time Integral 90.6 cm Right Atrial Pressure 3.0 mmHg Pulmonary Artery Systolic Pressu 24.0 mmHg RV Acceleration Time 0.0 s RV Ejection Time 0.3 s RV AcT/ET 0.1 FINDINGS Left Ventricle Normal left ventricular size and systolic function, EF 69 %. Right Ventricle Moderately dilated right ventricle with a diffuse hypokinesia. Technically difficult study because of poor apical window. Right Atrium Right atrium not well visualized. Left Atrium Mildly increased left atrial size. Mitral Valve No gross abnormalities noted Aortic Valve Thickened aortic valve. Tricuspid Valve Trace to mild tricuspid valve regurgitation. Pulmonic Valve Pulmonic valve not well visualized. Pericardium No pericardial effusion. Aorta Normal aortic annulus size. CONCLUSIONS Normal left ventricular size and systolic function, EF 69 %. Segmental wall motion analysis difficult because of the poor apical window The right ventricle appears to be moderately dilated with diffuse hypokinesia. Could not calculate the PA pressure because of the poor Doppler signals Thickened aortic valve. Trace to mild tricuspid valve regurgitation. There is no pericardial effusion. There are no intracardiac masses. Technically difficult study because of the poor ultrasonic window. Compared to the study from 03/06/2020, the RV dysfunction appears to be new Dr Kolby Tejeda MD FACC (Electronically Signed) Final Date: 03 October 2021 17:00 S
--- NOTE | 2021-10-02 11:36 | XR_ITS ---
WS: [id number] Portable AP upright chest, 10/02/2021 Clinical Data: sob Comparison: Portable chest, 09/17/2021. Findings: No nodules, masses or effusions are seen. The heart is normal. The pulmonary vascularity is not increased. No pneumonia or pneumothorax is seen. The aortic arch and descending thoracic aorta s how tortuosity. XR/XR chest 1V portable [id number] Impression: Atherosclerosis.
--- NOTE | 2021-10-02 11:37 | ECG_ITS ---
[facility] Test Date: 2021-10-02 Pat Name: Bonnie Pa Department: Room: Gender: Female Tube Skiver: : 1935 Requested By: Ishmael Mckeon Order Number: [id number] Adrian MD: Rolo Reynolds M.D. Measurements Intervals [place] Rate: 66 P: 32 [place]: 133 QRS: -42 QRSD: 104 T: -14 QT: 443 QTc: 466 Interpretive Statements SINUS RHYTHM WITH SINUS ARRHYTHMIA LEFT AXIS DEVIATION [QRS AXIS < -30] LOW QRS VOLTAGE IN PRECORDIAL LEADS [QRS DEFLECTION < 1.0 mV IN CHEST LEADS] PATTERN CONSISTENT WITH PULMONARY DISEASE INCOMPLETE RIGHT BUNDLE BRANCH BLOCK [90+ ms QRS DURATION, TERMINAL R IN V1/V2, 40+ ms S IN I/aVL/V4/V5/V6] Compared to ECG 10/02/2021 12:36:42 Left-axis deviation now present Low QRS voltage now present Left anterior fascicular block no longer present T-wave abnormality no longer present Electronically Signed On 10-02-2021 15:59:29 COMPLAINT INVESTIGATIONS OFFICER by Rolo Reynolds M.D. [id number]
--- NOTE | 2021-10-02 12:21 | ED_ITS ---
HPI - Weakness General: Chief complaint: Weakness Stated complaint: Not feeling good, SOB Time Seen by Provider: 10/02/21 12:21 History of Present Illness: Ms. Pa is an 86-year-old lady with history of pulmonary hypertension, emphysema, and hypertension and recent hospitalizat ion beginning on 09/17 for sepsis shock secondary to pyelonephritis and infected kidney stone who presents emergency department due to generalized symptoms. During that hospitalization she was also found to have NSTEMI, rhabdomyolysis, NAKUL. She was discharged on 09/20 on 14 days of p.o. ciprofloxacin. She reports feeling generalized weakness since time of discharge though perhaps was having mild improvement. Over the past day or so she has had generalized weakness that is worsened. Additionally she endorses nausea, continued mild abdominal discomfort which is generalized, and shortness of breath. The shortness of breath is not associated with cough though she does endorse chills. This is worse when lying flat and she has to sleep propped up. She has not noticed lower extremity edema. Overall the course of symptoms has been worsening. Intensity of symptoms is moderate to severe. No other specific changes in health, exacerbating, or relieving factors identified. The patient appears significantly anxious regarding her current state of health which does somewhat limit history. 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, invasive ductal carcinoma, 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, treated with radiotherapy ending 10/2018, lumpectomy, on arimidex Congestive heart failure Diastolic, grade 1, EF 60% on echo 03/2020 Elevated troponin History of bone density study (~07/2021) osteopenia History of breast cancer History of left heart catheterization (~11/2020) with right heart cath, PCWP 23 No significant disease in LAD, left main, circumflex or RCA EF 50% History of PFTs 04/2020 obstructive ventilatory defect, normal DLCO, normal post- bronchodilator spirometry History of pulmonary embolism (~2004) Hydronephrosis with urinary obstruction due to renal calculus Hyperlipidemia Hypothyroidism Kidney stones Osteopenia Pulmonary hypertension RVSP 40.9 mmHg on echo 03/2020 Recurrent urinary tract infection Rhabdomyolysis Septic shock Shortness of Breath Ureteropelvic junction (UPJ) obstruction, left Surgical History (Updated 10/10/21 @ 12:15 by Raul Riggs MD) History of breast biopsy History of bunionectomy History of cataract surgery History of detached retina repair History of hysterectomy History of lumpectomy right sided S/P ureteral stent placement Status post cholecystectomy Status post cystoscopy Family History Mother , at age 82 Pneumonia Sister Cancer multiple myeloma Son Myocardial infarction Father , at age 67 CAD (coronary artery disease) Other Diabetes Social History Smoking and tobacco status: never smoked Second hand smoke exposure: Yes Alcohol intake: never Caregiver/support person: Yes Lives independently: Yes Household members: family Marital status: / Current occupational status: retired Pets and animals: Yes History of recent travel: No Current gender identity: Female Physical Exam Const: COMMON NORMALS: alert GENERAL APPEARANCE: cooperative, well d eveloped and anxious HENMT: COMMON NORMALS: normocephalic and atraumatic HEAD & SCALP: normocephalic and atraumatic THROAT: posterior oropharynx normal Eye: COMMON NORMALS: conjunctivae normal CONJUNCTIVA: Yes conjunctivae normal SCLERA: sclerae normal Neck/C-Spine: COMMON NORMALS: supple GENERAL: Yes trachea midline Resp: COMMON NORMALS: normal respiratory effort EFFORT & INSPECTION: Yes able to speak in complete sentences AUSCULTATION: no wheezes and diminished lung sounds Cardio: COMMON NORMALS: regular rate and regular rhythm RATE: regular rate RHYTHM: regular rhythm GI: COMMON NORMALS: Soft to palpation PALPATION: Yes Soft to palpation and No Tenderness to palpation present (GI) PERCUSSION: normal to percussion Extremity: GENERAL: Yes normal exam except as noted and No edema Neuro: COMMON NORMALS: moves all extremities SENSORIUM/ORIENTATION: Yes alert and No Orientation impaired Psych: COMMON NORMALS: mental status grossly normal and Normal thought process present THOUGHT PROCESS: Normal thought process present Course ED course: - Patient was seen and evaluated by me at bedside - Patient placed on cardiac monitors, IV access obtained - Initial evaluation notable for exam as above. - IV fluids given - Labs notable for mild leukocytosis, relative hemoconcentration compared to prior. Metabolic panel with decreased bicarb and increased anion gap, renal f unction appears to improved. Lactic is elevated. Troponin elevated with negative delta troponin, BNP elevated. Given laboratory study findings as well as clinical history and reexamination patient I feel that PE must be considered, therefore D-dimer elevated which was markedly elevated. - Imaging notable for no lobar consolidation on chest x-ray. CT imaging notable for bilateral pulmonary embolisms with elevated RV to LV ratio, additionally there is moderate hydronephrosis with previous left renal stent in place. - Upon serial reexamination after treatment the patient was similar. I discu ssed CT findings with the patient as well as laboratory studies. I discussed risk and benefits of heparin, plan to proceed with heparin drip as the patient may require intervention regarding her stent. I discussed the case with Dr. Riggs of the urology service. - Based on patient history, evaluation, labs, and imaging as interpreted the most likely cause of the patient's condition is bilateral pulmonary embolisms and questionable stent malfunction versus continued drainage with previously s evere hydronephrosis. - The results of ED evaluation were discussed with the patient including plan for admission due to requirement for level of care not available if discharged to prevent significant worsening/deterioration. - Patient discussed with hospitalist service who agreed to admit the patient. - Patient was admitted without further deterioration or significant events. Note: Click bubbles or prepopulated mustafa in note writing are used for assistance with data collection and billing and are inherently more limited than narrative and other text portions of this note. Please use narrative for additional clinical history and defer to narrative/free test for any case of contradictory information. If information appears in only free text or click bubble it should be considered present or absent as reported. Please contact note magnetic tape typewriter operator for clarifications of clinical information or contradictory information. MDM is a brief summary, contradictory or erroneous seeming information should be clarified and full note should be reviewed. Vital Signs: Vital signs: Vital Signs Temperature 97.9 F 10/05/21 04:00 Pulse Rate 70 10/05/21 11:39 Respiratory Rate 18 10/05/21 09:22 Blood Pressure 116/50 10/05/21 08:00 Pulse Oximetry 95 10/05/21 09:22 MDM - Weakness Medical Decision Making 86-year-old lady with complicated recent hospitalization history presenting with generalized symptoms. Patient found to have bilateral pulmonary embolisms and questionable previously placed ureteral stent malfunction. Patient to be admitted for further definitive management on heparin drip. Medical Records I reviewed the patient's medical records. Lab Data I reviewed the patient's lab results. : 10/05/21 03:21 10/05/21 03:21 Radiology Impressions Chest X-Ray 10/02/21 11:36 Impression: Atherosclerosis. Chest/Abdomen/Pelvis CT 10/02/21 16:19 IMPRESSION: Multiple bilateral pulmonary emboli with RV strain. IMPRESSION: 1. Left internal renal stent. However there is moderate hydronephrosis suggesting stent malfunction or clogging. 2. Left UPJ calculus, 10 mm. 3. Colonic diverticulosis. 4. Other chronic findings as described The ADDENDUM: 10/02/21 4509 THIS REPORT CONTAINS FINDINGS THAT MAY BE CRITICAL TO PATIENT CARE. The findings were verbally communicated via telephone conference with Ishmael Mckeon at 5:48 PM RECEPTION INTERVIEWER on 10/02/2021. The findings were acknowledged and understood. Laboratory Results WBC 11.3 10^3/uL (4.0-10.0) H 10/02/21 12:45 RBC 4.52 10^6/uL (4.1-5.3) 10/02/21 12:45 Hgb 13.2 g/dL (11.5-15.3) 10/02/21 12:45 Hct 42.4 % (37.0-47.0) 10/02/21 12:45 MCV 93.8 fl (81-99) 10/02/21 12:45 MCH 29.2 pg (28.0-34.0) 10/02/21 12:45 MCHC 31.1 g/dL (30.0-36.0) 10/02/21 12:45 RDW 16.5 % (12.1-15.1) H 10/02/21 12:45 Plt Count 290 10^3/cmm (130-400) 10/02/21 12:45 MPV 10.3 fL (7.4-10.4) 10/02/21 12:45 Neut % (Auto) 86.2 % 10/02/21 12:45 Lymph % (Auto) 7.5 % 10/02/21 12:45 [place] % (Auto) 5.3 % 10/02/21 12:45 Eos % (Auto) 0.3 % 10/02/21 12:45 Baso % (Auto) 0.3 % 10/02/21 12:45 Neut # (Auto) 9.76 10^3/uL (1.8-7.7) H 10/02/21 12:45 Lymph # (Auto) 0.9 10^3/uL (0.8-4.8) 10/02/21 12:45 [place] # (Auto) 0.6 10^3/uL (0.2-0.9) 10/02/21 12:45 Eos # (Auto) 0.0 10^3/uL (0.0-0.8) 10/02/21 12:45 Baso # (Auto) 0.0 10^3/uL (0.0-0.1) 10/02/21 12:45 Nucleated RBC % (auto) 0 % 10/02/21 12:45 Nucleated RBCs # 0.0 /100WBC 10/02/21 12:45 APTT 24.9 SECONDS (23.9-36.7) 10/02/21 18:01 D-Dimer >= 20.00 ug/mIFEU (0-0.59) H 10/02/21 15:29 Sodium 142 mmol/L (136-145) 10/02/21 12:45 Potassium 4.2 mmol/L (3.5-5.1) 10/02/21 12:45 Chloride 109 mmol/L (98-107) H 10/02/21 12:45 Carbon Dioxide 18 mmol/L (22-29) L 10/02/21 12:45 Anion Gap 19.2 (5-19) H 10/02/21 12:45 BUN 15 mg/dL (8-23) 10/02/21 12:45 Creatinine 1.2 mg/dL (0.5-0.9) H 10/02/21 12:45 GFR Calculation Not Reportable 10/02/21 12:45 Glucose 145 mg/dL (65-115) H 10/02/21 12:45 Calculated Osmolality 297 mOsm/kg (285-295) H 10/02/21 12:45 Lactic Acid 3.2 mmol/L (0.5-2.2) H 10/02/21 12:45 Lactic Acid (Sepsis) 1.4 mmol/L (0.5-2.2) 10/02/21 16:04 Calcium 8.8 mg/dL (8.5-10.5) 10/02/21 12:45 Total Bilirubin 0.9 mg/dL (0.15-1.2) 10/02/21 12:45 AST 22 U/L (0-32) 10/02/21 12:45 ALT 15 U/L (0-33) 10/02/21 12:45 Alkaline Phosphatase 173 IU/L (35-105) H 10/02/21 12:45 Troponin T Baseline 121 ng/L (0-10) H* 10/02/21 12:45 Troponin T 120 Minute 94.00 ng/L (0-10) H 10/02/21 15:29 Delta Troponin T -27.00 ABS# (0-10) L 10/02/21 15:29 C-Reactive Protein 21.5 mg/L (0.0-4.9) H 10/02/21 12:45 NT-Pro-B Natriuret Pep 5137 pg/mL (0-450) H 10/02/21 12:45 Total Protein 7.1 g/dL (6.6-8.7) 10/02/21 12:45 Albumin 3.6 g/dL (3.5-5.2) 10/02/21 12:45 Globulin 3.5 g/dL (1.3-4.6) 10/02/21 12:45 Procalcitonin 0.25 ng/mL (0-0.5) 10/02/21 12:45 TSH 9.05 uIU/mL (0.27-4.20) H 10/02/21 12:45 Free T4 1.12 ng/dL (0.82-1.77) 10/02/21 12:45 Urine Color Yellow (Yellow) 10/02/21 14:58 Urine Appearance Cloudy (CLEAR) 10/02/21 14:58 Urine pH 6 (5-7) 10/02/21 14:58 Ur Specific [place] 1.020 (1.005-1.030) 10/02/21 14:58 Urine Protein Neg (Negative) 10/02/21 14:58 Urine Glucose (UA) Norm (Normal) 10/02/21 14:58 Urine Ketones Negative (Negative) 10/02/21 14:58 Urine Blood 2+ (Negative) H 10/02/21 14:58 Urine Nitrate Negative (Negative) 10/02/21 14:58 Urine Bilirubin Neg (Negative) 10/02/21 14:58 Urine Urobilinogen Norm mg/dL (Negative) 10/02/21 14:58 Ur Leukocyte Esterase 2+ (Negative) H 10/02/21 14:58 Urine RBC 5-10 /hpf (0-2) H 10/02/21 14:58 Urine WBC 80-100 /hpf (0-5) H 10/02/21 14:58 Ur Squamous Epith Cells 0-4 /hpf (0-5) H 10/02/21 14:58 Amorphous Sediment Not Reportable 10/02/21 14:58 Urine Bacteria 1+ /hpf (NONE) H 10/02/21 14:58 EKG Data EKG 1: I personally reviewed and interpreted this EKG as follows: EKG interpretation date: 10/02/21 EKG interpretation time: 12:45 Interpretation: Twelve-lead EKG shows a regular rhythm at a rate of 72. VA interval 131. QRS duration 97. QTc 377. Borderline left axis deviation Interpretation:Sinus rhythm. Nonspecific ST segment abnormalities. Borderline axis deviation. EKG 2: I personally reviewed and interpreted this EKG as follows: EKG interpretation date: 10/02/21 EKG interpretation time: 14:12 Interpretation: Twelve-lead EKG shows a sinus rhythm at a rate of 66. VA interval 133. QRS duration 104. QTc 457. Borderline left [place] deviation Interpretation: Sinus rhythm. Nonspecific ST segment abnormalities. Borderline axis deviation. EKG 3: I personally reviewed and interpreted this EKG as follows: EKG interpretation date: 10/02/21 EKG interpretation time: 17:25 Interpretation: Twelve-lead EKG shows a regular rhythm at a rate of 64. VA interval 135. QRS duration 101. QTc 437. Borderline left [place] deviation Interpretation: Sinus rhythm. Nonspecific ST segment abnormalities. Borderline axis deviation.. Critical Care Time Critical Care Time: Critical Care Time: Yes Total Critical Care Time: 35 Attestation: Due to a high probability of clinically significant, possibly life threatening deterioration, the patient required my highest level of attention and preparedness to intervene emergently and I personally spent this critical care time directly and personally managing the patient. This critical care time included obtaining a history; examining the patient; pulse oximetry; ordering and review of laboratory and imaging studies; arranging urgent treatment with development of a management plan; evaluation of patient's response to treatment; frequent reassessment; and, discussions with other providers as applicable. It was exclusive of separately billable procedures. Primary system involved is cardiopulmonary Discharge Plan Discharge Patient Disposition: Admitted As Inpatient Admit Provider: Ronak Gaytan Clinical Impression: Bilateral pulmonary embolism, Hydronephrosis Condition: Stable Discharge Diet: Cardiac Discharge Activity: Increase activity as tolerated and As per PT/OT instructions Coding Level of Care Code ED Messaging Architect for Chg Fwd Exam Comprehensive
[2021-10-02 12:54] LABS: Basophils % 0.3 %; Eosinophils % 0.3 %; Hematocrit 42.4 % (37.0-47.0); Hemoglobin 13.2 g/dL (11.5-15.3); Lymphocytes # 0.9 10^3/uL (0.8-4.8); Lymphocytes % 7.5 %; Mean Corpuscular HGB Conc 31.1 g/dL (30.0-36.0); Mean Corpuscular Hemoglobin 29.2 pg (28.0-34.0); Mean Corpuscular Volume 93.8 fl (81-99); Mean Platelet Volume 10.3 fL (7.4-10.4); Monocytes # 0.6 10^3/uL (0.2-0.9); Monocytes % 5.3 %; Neutrophils # 9.76 10^3/uL (1.8-7.7); Neutrophils % 86.2 %; Nucleated Red Blood Cells % 0 %; Platelet Count 290 10^3/cmm (130-400); Red Blood Count 4.52 10^6/uL (4.1-5.3); Red Cell Distribution Width 16.5 % (12.1-15.1); White Blood Count 11.3 10^3/uL (4.0-10.0)
[2021-10-02 13:22] LABS: Lactic Sepsis W/Reflex 3.2 mmol/L (0.5-2.2)
[2021-10-02 13:27] LABS: Troponin(5th) Baseline 121 ng/L (0-10)
[2021-10-02 13:33] LABS: NT Pro B Type Natriuretic Pept 5137 pg/mL (0-450); Procalcitonin 0.25 ng/mL (0-0.5); Thyroid Stimulating Hormone 9.05 uIU/mL (0.27-4.20)
--- NOTE | 2021-10-02 13:37 | ECG_ITS ---
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 Measurements Intervals [place] Rate: 72 P: 56 MO: 131 QRS: -48 QRSD: 97 T: -44 QT: 352 QTc: 388 Interpretive Statements SINUS RHYTHM WITH SINUS ARRHYTHMIA INCOMPLETE RIGHT BUNDLE BRANCH BLOCK [90+ ms QRS DURATION, TERMINAL R IN V1/V2, 40+ ms S IN I/aVL/V4/V5/V6] LEFT ANTERIOR FASCICULAR BLOCK [QRS AXIS <= -45, QR IN I, RS IN II] NONSPECIFIC ST & T-WAVE ABNORMALITY Compared to ECG 09/17/2021 16:53:02 Left anterior fascicular block now present T-wave abnormality now present Electronically Signed On 10-02-2021 16:04:38 FARM EQUIPMENT TECHNICIAN by Rolo Reynolds M.D. [id number]
[2021-10-02 13:44] LABS: Alanine Aminotransferase 15 U/L (0-33); Albumin Level 3.6 g/dL (3.5-5.2); Alkaline Phosphatase 173 IU/L (35-105); Anion Gap 19.2 (5-19); Aspartate Amino Transferase 22 U/L (0-32); Blood Urea Nitrogen 15 mg/dL (8-23); C Reactive Protein 21.5 mg/L (0.0-4.9); Calcium 8.8 mg/dL (8.5-10.5); Carbon Dioxide 18 mmol/L (22-29); Chloride 109 mmol/L (98-107); Globulin 3.5 g/dL (1.3-4.6); Glucose 145 mg/dL (65-115); Osmolality Calculated 297 mOsm/kg (285-295); Potassium 4.2 mmol/L (3.5-5.1); Sodium 142 mmol/L (136-145); Total Bilirubin 0.9 mg/dL (0.15-1.2); Total Protein 7.1 g/dL (6.6-8.7)
[2021-10-02 14:40] LABS: Reflex Lactate Order REFLEX LACTIC ORDERD
--- NOTE | 2021-10-02 14:45 | PC.PHAR ---
pt states she takes care of her own medications-pt states she is no longer taking kcl states she last took 09/17/21 states it was dced ext med history shows 10meq daily last filled 03/20/21 90d/s-pt states she takes imdur one half tab hs rx last filled 02/19/21 90d.s for 15mg bid notes are made in the pharmacy comments-pt states the lasix was put on hold till she sees her pcp
[2021-10-02] MEDS: sodium chloride 0.9% 500 ML 999 ML IV (15:43)
[2021-10-02 15:51] LABS: Free T4 Free Thyroxine 1.12 ng/dL (0.82-1.77)
[2021-10-02 16:16] LABS: D Dimer >= 20.00 ug/mIFEU (0-0.59)
--- NOTE | 2021-10-02 16:19 | CTR_ITS ---
PROCEDURE INFORMATION: Exam: CTA Chest With Contrast Exam date and time: 10/02/2021 4:19 PM Age: 86 years old Clinical indication: Abdominal pain; Acute; Chest pressure; Additional info: Ddimer elevated, abdominal pain TECHNIQUE: Imaging protocol: Computed tomographic angiography of the chest with contrast. 3D rendering (Not supervised by radiologist): MIP and/or 3D reconstructed images were created by the technologist. Radiation optimization: All CT scans at this facility use at least one of these dose optimization techniques: automated exposure control; mA and/or kV adjustment per patient size (includes targeted exams where dose is matched to clinical indication); or iterative reconstruction. Contrast material: VISI 320; Contrast volume: 135 ml; Contrast route: INTRAVENOUS (IV); COMPARISON: CT chest [facility] [id number] 04/18/2020 12:19 PM RADIATION DOSE METRICS: Total DLP (mGy-cm): 526.92 FINDINGS: Pulmonary arteries: There are multiple tubular intraluminal filling defects in both upper and lower lobe pulmonary arteries. Many of the clots are nearly occlusive but there is no pulmonary infarction. Overall clot burden is moderate to severe. No saddle embolus. Aorta: Unremarkable. No aortic aneurysm. No aortic dissection. Lungs: Small areas of atelectasis are noted in the middle lobe and lingula. No pneumonia or mass. Pleural spaces: Unremarkable. No pneumothorax. No pleural effusion. Heart: The intraventricular septum is deformed and the RV/LV ratio is elevated to 1.2. There is minimal calcified plaque in the coronary arteries. Lymph nodes: Unremarkable. No enlarged lymph nodes. Bones/joints: Mild chronic degenerative changes in the glenohumeral joints. Soft tissues: Unremarkable. PROCEDURE INFORMATION: Exam: CT Abdomen And Pelvis With Contrast Exam date and time: 10/02/2021 4:19 PM Age: 86 years old Clinical indication: Abdominal pain; Acute; Chest pressure; Additional info: Ddimer elevated, abdominal pain TECHNIQUE: Imaging protocol: Computed tomography of the abdomen and pelvis with contrast. Radiation optimization: All CT scans at this facility use at least one of these dose optimization techniques: automated exposure control; mA and/or kV adjustment per patient size (includes targeted exams where dose is matched to clinical indication); or iterative reconstruction. Contrast material: VISI 320; Contrast volume: 135 ml; Contrast route: INTRAVENOUS (IV); COMPARISON: CT chest [facility] [id number] 04/18/2020 12:19 PM RADIATION DOSE METRICS: Total DLP (mGy-cm): 1369.35 FINDINGS: Liver: Normal. No mass. Gallbladder and bile ducts: The gallbladder is surgically absent. Pancreas: Normal. No ductal dilation. Spleen: Normal. No splenomegaly. Adrenal glands: Normal. No mass. Kidneys and ureters: A left internal renal stent begins in the renal pelvis and ends within the urinary bladder. There is moderate left hydronephrosis suggesting stent malfunction. The. There are several intraluminal filling defects in the left renal calices which could represent clot or debris. Additional filling defects likely represent the stone seen on the prior scan. The. There is a persisting calculus in the left UPJ measuring up to 10 mm. Stomach and bowel: Focal rectal fecal distention up to 7.3 cm. Numerous noninflamed distal colonic diverticula. Appendix: No evidence of appendicitis. Intraperitoneal space: Unremarkable. No free air. No significant fluid collection. Vasculature: The infrarenal aorta is mildly ectatic. The IVC, iliac and common femoral veins are patent. The pelvic veins are patent. Lymph nodes: Unremarkable. No enlarged lymph nodes. Urinary bladder: The the urinary bladder is moderately distended. There is a large right-sided bladder diverticulum measuring up to 6.5 cm. Reproductive: Unremarkable as visualized. Bones/joints: Unremarkable. No acute fracture. Soft tissues: 2.1 cm umbilical hernia consist of fatty tissue only. There is a small hiatus hernia. CT/CT angio chest w abd pel w con IMPRESSION: Multiple bilateral pulmonary emboli with RV strain. IMPRESSION: 1. Left internal renal stent. However there is moderate hydronephrosis suggesting stent malfunction or clogging. 2. Left UPJ calculus, 10 mm. 3. Colonic diverticulosis. 4. Other chronic findings as described The
[2021-10-02 16:25] LABS: Add Urine Microscopic? YES; Bilirubin Urine Neg (Negative); Blood Urine 2+ (Negative); Glucose Urine UA Norm (Normal); Ketones Urine Negative (Negative); Leukocyte Esterase Urine 2+ (Negative); Nitrate Urine Negative (Negative); Protein Urine Neg (Negative); Urine Appearance Cloudy (CLEAR); Urine Color Yellow (Yellow); Urobilinogen Urine Norm (Negative); pH Urine 6 (5-7)
[2021-10-02 16:31] LABS: Add Urine Culture? Yes; Bacteria Urine 1+ /hpf; Squamous Epithelial Cell Urine 0-4 /hpf (0-5); WBC Urine 80-100 /hpf (0-5)
[2021-10-02 16:37] LABS: Lactic Acid level (Lactate) 1.4 mmol/L (0.5-2.2)
[2021-10-02] MEDS: iodixanol 320 mg/mL 100mL Btl IV ×2 (16:50→17:05)
--- NOTE | 2021-10-02 17:37 | ECG_ITS ---
[facility] Test Date: 2021-10-02 Pat Name: Bonnie Pa Department: Room: Gender: Female Char Filter Operator: : 1935 Requested By: Ishmael Mckeon Order Number: [id number] Adrian MD: Rolo Reynolds M.D. Measurements Intervals [place] Rate: 64 P: 61 VT: 135 QRS: -26 QRSD: 101 T: -11 QT: 427 QTc: 443 Interpretive Statements SINUS RHYTHM BORDERLINE LEFT AXIS DEVIATION [QRS AXIS < -20] LOW QRS VOLTAGE IN PRECORDIAL LEADS [QRS DEFLECTION < 1.0 mV IN CHEST LEADS] INCOMPLETE RIGHT BUNDLE BRANCH BLOCK [90+ ms QRS DURATION, TERMINAL R IN V1/V2, 40+ ms S IN I/aVL/V4/V5/V6] NONSPECIFIC T-WAVE ABNORMALITY Compared to ECG 10/02/2021 14:08:35 T-wave abnormality now present Sinus arrhythmia no longer present Electronically Signed On 10-02-2021 20:22:22 PATCH PRESS OPERATOR by Rolo Reynolds M.D. [id number]
[2021-10-02 18:23] LABS: Partial Thromboplastin Time 24.9 SECONDS (23.9-36.7)
[2021-10-02] MEDS: heparin 5,000 unit/mL INJ 1 mL IV (18:53)
[2021-10-02] MEDS: heparin drip 25,000 UNIT/500 ML PREMIX 23.75 UNIT IV (18:55)
--- NOTE | 2021-10-02 19:55 | PC.NURSE ---
Patient is asking for pack catheter. Patient states I get too short of breath when I get up and I get up frequent and only go a little bit each time. Dr. Rawls ordered to insert pack catheter.
--- NOTE | 2021-10-02 20:00 | PM.HP ---
Providers/Chief Complaint Admitting Physician: Ronak Gaytan Primary Care Provider: Domingo Bowser Chief Complaint: Not feeling good, SOB History of Present Illness Pleasant 86-year-old lady returns to the hospital after recent hospitalization with shortness of breath, some persistence of nausea, generally feeling weak and orthopnea, in ER with noted mild leukocytosis 11.3, afebrile, without tachycardia, blood pressure 140/68, with improving NAKUL, creatinine down to 1.2, with improving troponin down to 121, previously 484, with pyuria and microscopic hematuria, 5-10 RBC, 80-100 WBC, 1+ bacteria, with obstructive pyelonephritis, left-sided hydronephrosis, sepsis, stent placement during prior hospitalization, with Pseudomonas growing on culture. Currently with very elevated D-dimer, more than 20 with history of PE in the past, not any longer on anticoagulation, on aspirin [address] chest CTA protocol, CT abdomen pelvis with noted multiple bilateral PE with some noted RV strain on CT, left internal renal stent, but moderate hydronephrosis with concern of possible stent malfunction clogging, left UPJ calculus 10 mm, colonic diverticulosis, other chronic findings in the report. ER physician discussed with urology who will look over the findings. She is started on heparin drip for anticoagulation. She tells me she has not taken any Lasix since last hospitalization. Review of Systems Const: Reports: fatigue; Denies: fever(s) or chills Eyes: Denies: change in vision or eye redness ENMT: Denies: throat pain, oral sores or ear or mastoid pain Card: Reports: dyspnea on exertion and orthopnea; Denies: chest pain, edema or pre-syncope Resp: Reports: dyspnea; Denies: productive cough, change in phlegm color or hemoptysis GI: Reports: nausea; Denies: abdominal pain, vomiting, diarrhea, constipation, hematochezia or melena : Reports: flank pain; Denies: urinary frequency or hematuria Musc: Denies: back pain, joint swelling or joint redness Skin/Breast: Denies: rash, sores or new lesions Neuro: Denies: headache(s), numbness in extremities, weakness in extremities, dizziness, confusion or seizure-like activity Endo: Denies: polyuria or polydipsia Nelson/Lymph: Denies: easy bleeding or purpura All/Imm: Denies: urticaria, throat swelling or tongue swelling Medications/Allergies Home Medications Medication Instructions Recorded Confirmed Last Taken Type anastrozole 1 mg tablet 1 mg PO BEDTIME 05/08/20 10/02/21 10/01/21 History umeclidinium 62.5 mcg-vilanterol 1 inh INHALATION DAILY #60 ea 06/25/21 10/02/21 Unknown Rx 25 mcg/actuation powdr for inhalation (Anoro Ellipta) aspirin 325 mg tablet 325 mg PO BEDTIME 09/17/21 10/02/21 10/01/21 History atorvastatin 10 mg tablet 10 mg PO BEDTIME 09/17/21 10/02/21 10/01/21 History isosorbide mononitrate 30 mg 15 mg PO BEDTIME 09/17/21 10/02/21 10/01/21 History tablet,extended release 24 hr levothyroxine 75 mcg tablet 75 mcg PO QAM 09/17/21 10/02/21 10/01/21 History Vitamin D3 2 cap PO DAILY 10/02/21 10/02/21 Unknown History benzonatate 100 mg capsule 200 mg PO TID PRN 10/02/21 10/02/21 09/30/21 History budesonide-formoterol HFA 80 2 puff INHALATION BID 10/02/21 10/02/21 Unknown History mcg-4.5 mcg/actuation aerosol inhaler (Symbicort) cefdinir 300 mg capsule 300 mg PO Q12H 10/02/21 10/02/21 10/01/21 History Allergies Allergy/AdvReac Type Severity Reaction Status Date / Time ciprofloxacin [From Cipro] Allergy Unknown Unknown Verified 10/02/21 11:46 metronidazole [From Flagyl] Allergy Unknown Unknown Verified 10/02/21 11:46 nitrofurantoin Allergy Unknown Unknown Verified 10/02/21 11:46 [From Macrobid] Penicillins Allergy Unknown Unknown Verified 10/02/21 11:46 Sulfa (Sulfonamide Allergy Unknown Unknown Verified 10/02/21 11:46 Antibiotics) hydrochlorothiazide Allergy Unknown Verified 10/02/21 11:46 triamterene Allergy Unknown Verified 10/02/21 11:46 PFSH Acute PFSH: Medical History (Updated 10/02/21 @ 20:21 by Ronak Gaytan MD) Abnormal stress test (~07/2020) with subsequent cath without obstructive disease Acute pyelonephritis Acute renal failure 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, invasive ductal carcinoma, [place]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, treated with radiotherapy ending 10/2018, lumpectomy, on arimidex Congestive heart failure Diastolic, grade 1, EF 60% on echo 03/2020 Elevated troponin History of bone density study (~07/2021) osteopenia History of breast cancer History of left heart catheterization (~11/2020) with right heart cath, PCWP 23 No significant disease in LAD, left main, circumflex or RCA EF 50% History of PFTs 04/2020 obstructive ventilatory defect, normal DLCO, normal post-bronchodilator spirometry History of pulmonary embolism (~2004) Hydronephrosis with urinary obstruction due to renal calculus Hyperlipidemia Hypothyroidism Kidney stones Osteopenia Pulmonary hypertension RVSP 40.9 mmHg on echo 03/2020 Recurrent urinary tract infection Rhabdomyolysis Septic shock Shortness of Breath Ureteropelvic junction (UPJ) obstruction, left Surgical History History of breast biopsy History of bunionectomy History of cataract surgery History of detached retina repair History of hysterectomy History of lumpectomy right sided Status post cholecystectomy Status post cystoscopy Family History Mother No problems noted. Sister Cancer multiple myeloma Son Myocardial infarction Father CAD (coronary artery disease) Other Diabetes Social History Smoking and tobacco status: never smoked Second hand smoke exposure: Yes Alcohol intake: never Caregiver/support person: Yes Lives independently: Yes Household members: family Marital status: / Current occupational status: retired Pets and animals: Yes Current gender identity: Female Vitals/I&O/Wt Last Vital Signs Temp 98.0 F 10/02/21 19:40 Pulse 67 10/02/21 19:40 Resp 16 10/02/21 19:40 BP 140/68 10/02/21 19:40 Pulse Ox 92 10/02/21 19:40 10/02/21 10/02/21 10/02/21 06:59 14:59 22:59 Intake Total 500 / 500 Balance 500 / 500 Weight last 48 hrs Weight 84.822 kg Physical Exam Narrative: Daughter at bedside Const: COMMON NORMALS: no acute distress and patient oriented x3 OTHER: Very SITKA HENMT: COMMON NORMALS: oropharynx normal Neck/C-Spine: COMMON NORMALS: no JVD Resp: COMMON NORMALS: normal respiratory effort and clear to auscultation bilaterally AUSCULTATION: clear to auscultation bilaterally Cardio: COMMON NORMALS: no JVD, regular rhythm, S1 normal heart sound present, S2 normal heart sound present and No murmurs present (Cardio) RHYTHM: regular rhythm HEART SOUNDS: S1 normal heart sound present and S2 normal heart sound present GI: COMMON NORMALS: Normal to inspection, nondistended, normoactive bowel sounds present, Soft to palpation and non-tender PALPATION: Yes Soft to palpation Extremity: COMMON NORMALS: no joint enlargement and no pedal edema Neuro: COMMON NORMALS: patient oriented x3 and moves all extremities Skin: COMMON NORMALS: no rashes or lesions noted GENERAL SKIN EXAM: no rashes or lesions noted Data : 10/02/21 12:45 10/02/21 12:45 Micro: Microbiology 10/02/21 15:29 Blood Culture - Preliminary Blood SPECIMEN COLLECTED 10/02/21 14:10 Blood Culture - Preliminary Blood SPECIMEN COLLECTED A&P Assessment and plan (1) Bilateral pulmonary embolism: With recent hospitalization. Heparin drip. Possible RV strain signs on CT. Assess TTE. Status: Acute (2) Hydronephrosis: Possible lag in resolution of recent hydronephrosis. Urology will review, will discuss. Status: Acute (3) Congestive heart failure: Acute diastolic CHF exacerbation with orthopnea, peripheral edema. Cautiously resume Lasix, monitor blood pressures. IMAN. Status: Acute Qualifiers: Heart failure type: diastolic Heart failure chronicity: chronic Qualified Code(s): I50.32 - Chronic diastolic (congestive) heart failure (4) Pyuria: Recently completed Cipro course for Pseudomonas growing in urine Possibly due to stent presents. Follow-up urine culture. No sign of sepsis currently. Hold off restarting antibiotic for now. Monitor. Status: Acute (5) NAKUL (acute kidney injury): Continuing to improve. Patient NAKUL, creatinine currently down to 1.2. Status: Acute (6) Troponin level elevated: NSTEMI type II during recent hospitalization, troponin at that time noted over 480, currently lower at 120. Denies chest pain. Possible strain again, currently secondary to bilateral PE. Assess TTE. Monitor on telemetry. Aspirin on hold for now with initiation of anticoagulation with stent in place, urolithiasis, possible surgical procedure, atorvastatin, recently with bradycardia, so not on beta-vicki. But resume once bleeding is less of a risk. Liters stress test 07/12/2020 with small size perfusion normality of mild severity of apical inferior and apical lateral james with reversibility noted in mid inferior and inferolateral and apical lateral james. Representing small area of ischemia in circumflex/right coronary artery. Consider repeating stratification once through acute illness. Status: Acute Attestations Medical Necessity Statement*: Admission of over 2 midnights is anticipated for assessment of management of bilateral PEs with possible right heart strain, CHF exacerbation, persistence of hydronephrosis, possible stent malfunction after recent obstructive pyelonephritis. Coding Level of Care Code Acute [place] Machine Operator Helper for Selvin Broussard Diagnoses Bilateral pulmonary embolism I26.99 Hydronephrosis N13.30 Pyuria R82.81 NAKUL (acute kidney injury) N17.9 Congestive heart failure I50.32 Heart failure type: diastolic Heart failure chronicity: chronic Troponin level elevated R77.8
--- NOTE | 2021-10-02 20:07 | PC.NURSE ---
Patient has home medications with her brought in by daughter. Patient has two medications bottles without labels. Patient states those are my cancer pills. Unable to update med rec fully at this time due to two bottles of medications not having labels and patient being unable to name them.
[2021-10-02 20:54] LABS: Troponin 5 6HR 81.84 ng/L (0-10)
[2021-10-02] MEDS: atorvastatin 40 mg Tablet 10 MG PO (21:21)
[2021-10-02] MEDS: isosorbide mononitrate ER 30 mg Tablet 15 MG PO (21:22)
[2021-10-02] MEDS: FUROsemide 10 mg/mL SDV 2mL 20 MG IVP (21:24)
[2021-10-02] MEDS: anastrozole 1 mg Tablet PO (21:54)
--- NOTE | 2021-10-02 22:56 | PM.MISC ---
Miscellaneous Note Purpose of Documentation: Documentation of review with attending. Note: COURTESY note Bonnie Pa is a 86 year old female well-known to me for recent left ureteral stent placement for obstructive pyelonephritis. Was admitted yesterday for pulmonary emboli and failure to thrive. Abdominal CT scan revealed stent in good position. Interpreted as persistent hydronephrosis. I did review the films. The findings are consistent with some residual hydronephrosis but marked reduction from prestent status. Most of the changes are consistent with chronic dilation changes not likely to resolve with acute stent placement. Her bladder was distended though. Klein catheter has been replaced. Given her other significant current medical conditions we will postpone treatment of the obstructing ureteral stone. I will see her back in clinic prior to rescheduling. All of this was reviewed with her hospitalist attending.
[2021-10-03] VITALS (17 sets, daily range): BP systolic 111–146; BP diastolic 60–75; PULSE 59–81; RESP 13–22; TEMP 36.2–36.3; O2SAT 90–97
[2021-10-03 01:00] LABS: Basophils % 0.3 %; Eosinophils # 0.2 10^3/uL (0.0-0.8); Eosinophils % 2.6 %; Hematocrit 34.2 % (37.0-47.0); Hemoglobin 10.7 g/dL (11.5-15.3); Lymphocytes # 1.7 10^3/uL (0.8-4.8); Lymphocytes % 21.9 %; Mean Corpuscular HGB Conc 31.3 g/dL (30.0-36.0); Mean Corpuscular Volume 92.7 fl (81-99); Mean Platelet Volume 10.4 fL (7.4-10.4); Monocytes # 0.7 10^3/uL (0.2-0.9); Monocytes % 8.4 %; Neutrophils # 5.14 10^3/uL (1.8-7.7); Neutrophils % 66.4 %; Nucleated Red Blood Cells % 0 %; Platelet Count 220 10^3/cmm (130-400); Red Blood Count 3.69 10^6/uL (4.1-5.3); Red Cell Distribution Width 16.4 % (12.1-15.1); White Blood Count 7.7 10^3/uL (4.0-10.0)
[2021-10-03 01:24] LABS: Alanine Aminotransferase 11 U/L (0-33); Alkaline Phosphatase 137 IU/L (35-105); Anion Gap 11.7 (5-19); Aspartate Amino Transferase 19 U/L (0-32); Blood Urea Nitrogen 14 mg/dL (8-23); Carbon Dioxide 23 mmol/L (22-29); Chloride 111 mmol/L (98-107); Globulin 3.3 g/dL (1.3-4.6); Glucose 96 mg/dL (65-115); Osmolality Calculated 294 mOsm/kg (285-295); Potassium 3.7 mmol/L (3.5-5.1); Sodium 142 mmol/L (136-145); Total Bilirubin 0.9 mg/dL (0.15-1.2); Total Protein 6.3 g/dL (6.6-8.7)
[2021-10-03 01:32] LABS: Partial Thromboplastin Time 238.1 SECONDS (23.9-36.7)
--- NOTE | 2021-10-03 01:45 | PC.NURSE ---
On-call hospitalist notified of critical PTT of 238 with Heparin drip running at 23 ml/hr. Ordered to shut drip off for 2 hours, recheck PTT, then notify provider of PTT result.
[2021-10-03 04:21] LABS: Partial Thromboplastin Time 69.5 SECONDS (23.9-36.7)
--- NOTE | 2021-10-03 04:59 | PC.NURSE ---
PTT 69.5. Hospitalist notified. Ordered to restart Heparin drip at 15 ml/hr and recheck PTT in 2 hours and follow protocol based on PTT result.
[2021-10-03] MEDS: levothyroxine 75 mcg Tablet PO (06:11)
[2021-10-03 07:12] LABS: Partial Thromboplastin Time 78.8 SECONDS (23.9-36.7)
--- NOTE | 2021-10-03 07:18 | PM.CONSULT ---
Providers/Reason For Consult Consulting Physician/Specialty*: Urology/[place] Reason for Consult*: Persistent hydronephrosis status post stenting Requesting Physician: ED physician Attending Physician: Ronak Gaytan Primary Care Provider: Domingo Bowser History of Present Illness History of Present Illness Bonnie Pa is a 86 year old female well-known to me for recent left ureteral stent placement for obstructive pyelonephritis. Was admitted yesterday for pulmonary emboli and failure to thrive. Abdominal CT scan revealed stent in good position. Interpreted as persistent hydronephrosis. I did review the films. The findings are consistent with some residual hydronephrosis but marked reduction from prestent status. Most of the changes are consistent with chronic dilation changes not likely to resolve with acute stent placement. Her bladder was distended though. Klein catheter has been replaced. Medications/Allergies Home Medications Medication Instructions Recorded Confirmed Last Taken Type anastrozole 1 mg tablet 1 mg PO BEDTIME 05/08/20 10/02/21 10/01/21 History umeclidinium 62.5 mcg-vilanterol 1 inh INHALATION DAILY #60 ea 06/25/21 10/02/21 Unknown Rx 25 mcg/actuation powdr for inhalation (Anoro Ellipta) aspirin 325 mg tablet 325 mg PO BEDTIME 09/17/21 10/02/21 10/01/21 History atorvastatin 10 mg tablet 10 mg PO BEDTIME 09/17/21 10/02/21 10/01/21 History isosorbide mononitrate 30 mg 15 mg PO BEDTIME 09/17/21 10/02/21 10/01/21 History tablet,extended release 24 hr levothyroxine 75 mcg tablet 75 mcg PO QAM 09/17/21 10/02/21 10/01/21 History Vitamin D3 2 cap PO DAILY 10/02/21 10/02/21 Unknown History benzonatate 100 mg capsule 200 mg PO TID PRN 10/02/21 10/02/21 09/30/21 History budesonide-formoterol HFA 80 2 puff INHALATION BID 10/02/21 10/02/21 Unknown History mcg-4.5 mcg/actuation aerosol inhaler (Symbicort) cefdinir 300 mg capsule 300 mg PO Q12H 10/02/21 10/02/21 10/01/21 History Allergies Allergy/AdvReac Type Severity Reaction Status Date / Time ciprofloxacin [From Cipro] Allergy Unknown Unknown Verified 10/02/21 11:46 metronidazole [From Flagyl] Allergy Unknown Unknown Verified 10/02/21 11:46 nitrofurantoin Allergy Unknown Unknown Verified 10/02/21 11:46 [From Macrobid] Penicillins Allergy Unknown Unknown Verified 10/02/21 11:46 Sulfa (Sulfonamide Allergy Unknown Unknown Verified 10/02/21 11:46 Antibiotics) hydrochlorothiazide Allergy Unknown Verified 10/02/21 11:46 triamterene Allergy Unknown Verified 10/02/21 11:46 Current Medications Generic Name Dose Route Start Last Admin Trade Name Freq PRN Reason Stop Dose Admin Anastrozole 1 mg 10/02/21 21:00 10/02/21 21:54 Anastrozole 1 Mg Tablet PO 1 mg BEDTIME ALBERT Administration Atorvastatin Calcium 10 mg 10/02/21 21:00 10/02/21 21:21 Atorvastatin 40 Mg Tablet PO 10 mg BEDTIME ALBERT Administration Furosemide 20 mg 10/02/21 20:15 10/02/21 21:24 Furosemide 10 Mg/Ml Sdv 2ml IVP 20 mg DAILY ALBERT Administration Heparin Sodium (Porcine) 0 unit 10/02/21 17:57 10/02/21 18:53 Heparin 5,000 Unit/Ml Inj 1 Ml IV 4,300 unit PRN PRN Administration Heparin weight-base protocol Protocol Heparin Sodium/Sodium Chloride 25,000 unit in 500 mls @ 0 mls/hr 10/02/21 18:00 10/03/21 05:00 Heparin Drip IV 8.84 unit/kg/hr .Q0M ALBERT 15 mls/hr Titration Protocol Per Protocol Isosorbide Mononitrate 15 mg 10/02/21 21:00 10/02/21 21:22 Isosorbide Mononitrate Er 30 Mg Tablet PO 15 mg BEDTIME ALBERT Administration Levothyroxine Sodium 75 mcg 10/03/21 06:00 10/03/21 06:11 Levothyroxine 75 Mcg Tablet PO 75 mcg QAM ALBERT Administration PFSH Acute PFSH: Medical History (Updated 10/02/21 @ 20:21 by Ronak Gaytan MD) Abnormal stress test (~07/2020) with subsequent cath without obstructive disease Acute pyelonephritis Acute renal failure 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, invasive ductal carcinoma, [place]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, treated with radiotherapy ending 10/2018, lumpectomy, on arimidex Congestive heart failure Diastolic, grade 1, EF 60% on echo 03/2020 Elevated troponin History of bone density study (~07/2021) osteopenia History of breast cancer History of left heart catheterization (~11/2020) with right heart cath, PCWP 23 No significant disease in LAD, left main, circumflex or RCA EF 50% History of PFTs 04/2020 obstructive ventilatory defect, normal DLCO, normal post-bronchodilator spirometry History of pulmonary embolism (~2004) Hydronephrosis with urinary obstruction due to renal calculus Hyperlipidemia Hypothyroidism Kidney stones Osteopenia Pulmonary hypertension RVSP 40.9 mmHg on echo 03/2020 Recurrent urinary tract infection Rhabdomyolysis Septic shock Shortness of Breath Ureteropelvic junction (UPJ) obstruction, left Surgical History History of breast biopsy History of bunionectomy History of cataract surgery History of detached retina repair History of hysterectomy History of lumpectomy right sided Status post cholecystectomy Status post cystoscopy Family History Mother No problems noted. Sister Cancer multiple myeloma Son Myocardial infarction Father CAD (coronary artery disease) Other Diabetes Social History Smoking and tobacco status: never smoked Second hand smoke exposure: Yes Alcohol intake: never Caregiver/support person: Yes Lives independently: Yes Household members: family Marital status: / Current occupational status: retired Pets and animals: Yes Current gender identity: Female Vitals/I&O/Wt Last Vital Signs Temp 97.3 F L 10/03/21 03:55 Pulse 59 L 10/03/21 06:00 Resp 18 10/03/21 03:55 BP 126/64 10/03/21 03:55 Pulse Ox 93 10/03/21 03:55 10/02/21 10/03/21 10/03/21 22:59 06:59 14:59 Intake Total 500 / 500 462.688 / 962.688 Output Total 1999 Balance 500 / 500 -1537.312 / -1037.312 Weight last 48 hrs Weight 159 lb 6.4 oz Weight 164 lb Weight 164 lb Weight 187 lb Physical Exam Urinary Catheter Management: Klein Latex: Cath Placed During This Visit: yes Reason for Continuing Indwelling Catheter: Other Urinary Catheter Date of Insertion: 10/02/21 Urinary Catheter Time of Insertion: 20:22 Data : 10/03/21 00:51 10/03/21 00:51 Micro: Microbiology 10/02/21 15:29 Blood Culture - Preliminary Blood SPECIMEN COLLECTED 10/02/21 14:10 Blood Culture - Preliminary Blood SPECIMEN COLLECTED Coding Level of Care Code Acute Diagnostic Imaging Manager for Selvin Broussard
[2021-10-03] MEDS: FUROsemide 10 mg/mL SDV 2mL 20 MG IVP (08:30)
[2021-10-03] MEDS: ipratropium-albuterol 3 mL Neb INHALATION ×3 (09:04→20:44)
[2021-10-03] MEDS: budesonide 0.5 mg/2 mL Neb INHALATION ×2 (09:05→20:44)
--- NOTE | 2021-10-03 11:05 | PC.CHAP ---
Pastoral Care Encounter/Spiritual Assessment Type of Contact [] Declined coremaker supervisor visit [] Patient/Family/Request visit [] Outpatient visit [] Follow-up visit [] Physician referral [] Code/Alert [x] Routine visit [] Staff referral [] Actively dying [] Patient sleeping [] Family support [] [] Out of room [] Palliative care [] [x] Receiving care in room [] Pre-surgical visit [] Trauma [x] Long length of stay [] ICU visit [] Other: Relational/Emotional Strength [x] Patient feels connected with others/family/visitors/staff [x] Distress [] Loneliness/isolation [] Abandonment Spirituality of Patient [x] Person of Valeria [] Attends Tenriism of their Valeria [x] Believes in Prayer [] Reads Bible or Scientology materials [] There are Spiritual issues to be addressed Roller Staker Interventions [x] Prayer [x] Active listening [] Non-anxious presence [x] Spiritual/emotional support [] Crisis/trauma care [x] Spiritual counseling [] Bereavement support [] Provided bereavement packet [] Provided Bible/devotional materials [] Provided toy/stuffed animal, coloring book to patient or family member [] Provided Communion [] Anointing/[place] [] Salvation [x] Completed spiritual assessment [] Other: Impact on Illness or Injury [] Angry [x] Fearful [] Anxious [] Often cries [] Exhaustion [] Unable to work [] Unable to attend jew [] Unable to walk/stand [] Unable to read [] Unable to drive [] Unable to eat/drink [] Unable to sleep [] Unable to be with family [] Patient intubated [] Other: Summary 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
[2021-10-03] MEDS: apixaban 5 mg Tablet 10 MG PO (14:41)
--- NOTE | 2021-10-03 17:27 | PM.PN ---
Subjective Subjective: She reports she is actually feeling better. She has still been generally weak, is willing to try working with physical therapy. Denies chest pain or pressure. Denies abdominal pain or flank pain. No nausea or vomiting. Vitals/I&O/Wt Last Vital Signs Temp 97.1 F L 10/03/21 16:00 Pulse 81 10/03/21 16:00 Resp 18 10/03/21 16:00 BP 111/66 10/03/21 16:00 Pulse Ox 97 10/03/21 16:00 10/03/21 10/03/21 10/03/21 06:59 14:59 22:59 Intake Total 462.688 / 962.688 124.433 / 124.433 0 / 124.433 Output Total 1999 1400 / 3400 Balance -1537.312 / -1037.312 -1875.567 / -1875.567 -1400 / -3275.567 Weight last 48 hrs Weight 72.303 kg Weight 74.389 kg Weight 74.389 kg Weight 84.822 kg Physical Exam Const: COMMON NORMALS: no acute distress and patient oriented x3 GENERAL APPEARANCE: cooperative OTHER: Very [place] HENMT: COMMON NORMALS: oropharynx normal Neck/C-Spine: COMMON NORMALS: no JVD Resp: COMMON NORMALS: normal respiratory effort and clear to auscultation bilaterally AUSCULTATION: clear to auscultation bilaterally Cardio: COMMON NORMALS: no JVD, regular rhythm, S1 normal heart sound present, S2 normal heart sound present and No murmurs present (Cardio) RHYTHM: regular rhythm HEART SOUNDS: S1 normal heart sound present and S2 normal heart sound present GI: COMMON NORMALS: Normal to inspection, nondistended, normoactive bowel sounds present, Soft to palpation and non-tender PALPATION: Yes Soft to palpation Extremity: COMMON NORMALS: no joint enlargement and no pedal edema Neuro: COMMON NORMALS: patient oriented x3 and moves all extremities Skin: COMMON NORMALS: no rashes or lesions noted GENERAL SKIN EXAM: no rashes or lesions noted Urinary Catheter Management: Klein Latex: Cath Placed During This Visit: yes Reason for Continuing Indwelling Catheter: Other Urinary Catheter Date of Insertion: 10/02/21 Urinary Catheter Time of Insertion: 20:22 Data : 10/03/21 00:51 10/03/21 00:51 Micro: Microbiology 10/02/21 15:29 Blood Culture - Preliminary Blood NEGATIVE TO DATE 10/02/21 14:10 Blood Culture - Preliminary Blood NEGATIVE TO DATE 10/02/21 14:58 Urine Culture - Preliminary Urine,Clean Catch A&P Assessment and plan (1) Bilateral pulmonary embolism: Pressure although TTE obtained due to report of RV strain on CT scan. Pending assessment. Slightly softer 111/66. Transition to oral anticoagulation. Follow-up TTE result Monitor blood pressure. Status: Acute (2) Hydronephrosis: Possible lag in resolution of recent hydronephrosis. Discussed with urology, this is likely residual dilation with a functional stent which is not expected to resolve until stent is removed after stone retrieval. Recommendation is to extend/continue antibiotic coverage, however, given recent UTI, pseudomonal infection in the presence of the stent. Of note she was discharged on ciprofloxacin from last admission which would have given her coverage for the urinary tract infection with Pseudomonas noted in urine on 09/17, however, I see also ciprofloxacin is listed as allergy. Does appear to have also prescription for cefdinir. I thought perhaps this was placed on her medication list previously as this would not give her adequate coverage for Pseudomonas, however, does appear she had received a prescription for it on 09/24. I tried to reach daughter for additional formation with regards to this, but there was no answer. For now will start empirically on Primaxin until we can clarify further with regards to ciprofloxacin listed as allergy. Status: Acute (3) Congestive heart failure: Producing good amount of urine with low-dose Lasix. Symptomatically doing better. Monitor blood pressure. Follow-up TTE. Acute diastolic CHF exacerbation with orthopnea, peripheral edema. IMAN. Status: Acute Qualifiers: Heart failure type: diastolic Heart failure chronicity: chronic Qualified Code(s): I50.32 - Chronic diastolic (congestive) heart failure (4) Pyuria: As per discharge documentation prescription went home with ciprofloxacin, as above has cefdinir listed which I thought was added spuriously to her list which would not give her coverage for Pseudomonas. At the same time ICU ciprofloxacin is listed as an allergy, unclear whether she had had a reaction of some sort. Could not reach her daughter to confirm today. They did not seem to bring up any sort of reaction when we discussed her recent hospitalization and admission. We will need to clarify, for now given recommendation for continued antibiotic coverage on empiric basis due to presence of the stent empirically start Primaxin until we can get more details with regards to ciprofloxacin. Residual hydronephrosis on CT not unexpected per discussion with urology. Status: Acute (5) NAKUL (acute kidney injury): Resolving. Status: Acute (6) Troponin level elevated: Follow-up TTE. She denies chest pain or pressure. She is feeling better today. Gradually decreasing troponin appears since last admit with suspected demand ischemia. NSTEMI type II during recent hospitalization, troponin at that time noted over 480, currently lower at 120. Denies chest pain. Possible strain again, currently secondary to bilateral PE. Assess TTE. Monitor on telemetry. Aspirin on hold for now with initiation of anticoagulation with stent in place, urolithiasis, possible surgical procedure, atorvastatin, recently with bradycardia, so not on beta-vicki. But resume once bleeding is less of a risk. Liters stress test 07/12/2020 with small size perfusion normality of mild severity of apical inferior and apical lateral james with reversibility noted in mid inferior and inferolateral and apical lateral james. Representing small area of ischemia in circumflex/right coronary artery. Consider repeating stratification once through acute illness. Status: Acute Plan Physical deconditioning: After recent hospitalization, generalized weakness, assessed by PT, OT. She is clear she would not consider going to longterm for rehabilitation. Would benefit from further therapy after discharge which she prefers to do outpatient, does not want home health. Attestations Medical Necessity Statement*: Continue admission for assessment management of bilateral PE, CHF exacerbation, recent complicated urinary infection with Pseudomonas, empiric antibiotic coverage, disposition planning and arrangements. Coding Level of Care Code Acute Care Manager Cna for [facility] Diagnoses Bilateral pulmonary embolism I26.99 Hydronephrosis N13.30 Congestive heart failure I50.32 Heart failure type: diastolic Heart failure chronicity: chronic Pyuria R82.81 NAKUL (acute kidney injury) N17.9 Troponin level elevated R77.8
[2021-10-03] MEDS: isosorbide mononitrate ER 30 mg Tablet 15 MG PO (21:08)
[2021-10-03] MEDS: anastrozole 1 mg Tablet PO (21:09)
[2021-10-03] MEDS: atorvastatin 40 mg Tablet 10 MG PO (21:10)
[2021-10-04] VITALS (20 sets, daily range): BP systolic 83–125; BP diastolic 51–70; PULSE 70–88; RESP 12–23; TEMP 36.3–36.9; O2SAT 87–98
[2021-10-04] MEDS: apixaban 5 mg Tablet 10 MG PO ×2 (01:48→15:02)
[2021-10-04] MEDS: ipratropium-albuterol 3 mL Neb INHALATION ×4 (02:54→20:28)
[2021-10-04 04:48] LABS: Basophils % 0.3 %; Eosinophils # 0.2 10^3/uL (0.0-0.8); Eosinophils % 2.8 %; Hematocrit 33.2 % (37.0-47.0); Hemoglobin 10.5 g/dL (11.5-15.3); Lymphocytes # 1.1 10^3/uL (0.8-4.8); Lymphocytes % 17.4 %; Mean Corpuscular HGB Conc 31.6 g/dL (30.0-36.0); Mean Corpuscular Hemoglobin 29.7 pg (28.0-34.0); Mean Corpuscular Volume 94.1 fl (81-99); Mean Platelet Volume 10.6 fL (7.4-10.4); Monocytes # 0.6 10^3/uL (0.2-0.9); Monocytes % 9.6 %; Neutrophils # 4.48 10^3/uL (1.8-7.7); Neutrophils % 69.6 %; Nucleated Red Blood Cells % 0 %; Platelet Count 212 10^3/cmm (130-400); Red Blood Count 3.53 10^6/uL (4.1-5.3); Red Cell Distribution Width 17.2 % (12.1-15.1); White Blood Count 6.4 10^3/uL (4.0-10.0)
[2021-10-04 05:19] LABS: Alanine Aminotransferase 10 U/L (0-33); Alkaline Phosphatase 139 IU/L (35-105); Anion Gap 13.4 (5-19); Aspartate Amino Transferase 15 U/L (0-32); Blood Urea Nitrogen 24 mg/dL (8-23); Calcium 8.8 mg/dL (8.5-10.5); Carbon Dioxide 23 mmol/L (22-29); Chloride 106 mmol/L (98-107); Globulin 3.1 g/dL (1.3-4.6); Glucose 140 mg/dL (65-115); Osmolality Calculated 294 mOsm/kg (285-295); Potassium 3.4 mmol/L (3.5-5.1); Sodium 139 mmol/L (136-145); Total Bilirubin 0.5 mg/dL (0.15-1.2); Total Protein 6.1 g/dL (6.6-8.7)
[2021-10-04] MEDS: levothyroxine 75 mcg Tablet PO (05:20)
[2021-10-04 05:21] LABS: Creatinine Clr Calc Pharmacy 30.6965
[2021-10-04] MEDS: budesonide 0.5 mg/2 mL Neb INHALATION ×2 (08:12→20:27)
[2021-10-04] MEDS: anastrozole 1 mg Tablet PO (19:48)
[2021-10-04] MEDS: atorvastatin 40 mg Tablet 10 MG PO (19:48)
[2021-10-04] MEDS: isosorbide mononitrate ER 30 mg Tablet 15 MG PO (19:49)
--- NOTE | 2021-10-04 21:43 | PM.PN ---
Subjective Subjective: Gets occasionally dyspneic. Denies chest pain or pressure. Lightheaded. Vitals/I&O/Wt Last Vital Signs Temp 98.5 F 10/04/21 19:25 Pulse 75 10/04/21 20:38 Resp 20 H 10/04/21 20:38 BP 109/51 10/04/21 19:25 Pulse Ox 98 10/04/21 20:38 10/04/21 10/04/21 10/04/21 06:59 14:59 22:59 Intake Total 100 / 374.433 456 / 456 340 / 796 Output Total 100 / 3700 350 / 350 Balance 0 / -3325.567 456 / 456 -10 / 446 Weight last 48 hrs Weight 73.346 kg Weight 72.303 kg Weight 74.389 kg Physical Exam Const: COMMON NORMALS: no acute distress and patient oriented x3 GENERAL APPEARANCE: cooperative OTHER: Very [place]. Today appears somewhat tired. HENMT: COMMON NORMALS: oropharynx normal Neck/C-Spine: COMMON NORMALS: no JVD Resp: COMMON NORMALS: normal respiratory effort and clear to auscultation bilaterally AUSCULTATION: clear to auscultation bilaterally Cardio: COMMON NORMALS: no JVD, regular rhythm, S1 normal heart sound present, S2 normal heart sound present and No murmurs present (Cardio) RHYTHM: regular rhythm HEART SOUNDS: S1 normal heart sound present and S2 normal heart sound present GI: COMMON NORMALS: Normal to inspection, nondistended, normoactive bowel sounds present, Soft to palpation and non-tender PALPATION: Yes Soft to palpation Extremity: COMMON NORMALS: no joint enlargement GENERAL: Yes edema (trace residual LLE) Neuro: COMMON NORMALS: patient oriented x3 and moves all extremities Skin: COMMON NORMALS: no rashes or lesions noted GENERAL SKIN EXAM: no rashes or lesions noted Urinary Catheter Management: Klein Latex: Cath Placed During This Visit: yes Reason for Continuing Indwelling Catheter: Accurate Measurement of Urinary Output in Critically Ill Patients Urinary Catheter Date of Insertion: 10/02/21 Urinary Catheter Time of Insertion: 20:22 Data : 10/04/21 04:25 10/04/21 04:25 Micro: Microbiology 10/02/21 14:58 Urine Culture - Preliminary Urine,Clean Catch Gram Negative Rods 10/02/21 15:29 Blood Culture - Preliminary Blood NEGATIVE TO DATE A&P Assessment and plan (1) Bilateral pulmonary embolism: Echocardiogram with RV strain. Does not have saddle PE, however, has prior history of PE. Suspect there is chronicity to this process with likely pulmonary hypertension. Possibly recurrent given second episode consideration may be given to lifelong anticoagulation. Continue p.o. anticoagulation after discharge. Held Lasix his blood pressures on the soft side, 109/51. Mild NAKUL, creatinine 1.3. Report of RV strain on CT scan as well as echocardiogram. Tachycardia with RV strain. Status: Acute (2) Hydronephrosis: With ciprofloxacin allergy/intolerance continue ertapenem IM after discharge. Possible lag in resolution of recent hydronephrosis. Discussed with urology, this is likely residual dilation with a functional stent which is not expected to resolve until stent is removed after stone retrieval. Recommendation is to extend/continue antibiotic coverage, however, given recent UTI, pseudomonal infection in the presence of the stent. Of note she was discharged on ciprofloxacin from last admission which would have given her coverage for the urinary tract infection with Pseudomonas noted in urine on 09/17, however, I see also ciprofloxacin is listed as allergy. Does appear to have also prescription for cefdinir. I thought perhaps this was placed on her medication list previously as this would not give her adequate coverage for Pseudomonas, however, does appear she had received a prescription for it on 09/24. I tried to reach daughter for additional formation with regards to this, but there was no answer. For now will start empirically on Primaxin until we can clarify further with regards to ciprofloxacin listed as allergy. Status: Acute (3) Congestive heart failure: Producing good amount of urine with low-dose Lasix. Symptomatically doing better. Monitor blood pressure. Follow-up TTE. Acute diastolic CHF exacerbation with orthopnea, peripheral edema. IMAN. Status: Acute Qualifiers: Heart failure chronicity: chronic Heart failure type: diastolic Qualified Code(s): I50.32 - Chronic diastolic (congestive) heart failure (4) Pyuria: With ciprofloxacin allergy/intolerance continue ertapenem IM after discharge until stent/stone retrieved As per discharge documentation prescription went home with ciprofloxacin, as above has cefdinir listed which I thought was added spuriously to her list which would not give her coverage for Pseudomonas. At the same time ICU ciprofloxacin is listed as an allergy, unclear whether she had had a reaction of some sort. Could not reach her daughter to confirm today. They did not seem to bring up any sort of reaction when we discussed her recent hospitalization and admission. We will need to clarify, for now given recommendation for continued antibiotic coverage on empiric basis due to presence of the stent empirically start Primaxin until we can get more details with regards to ciprofloxacin. Residual hydronephrosis on CT not unexpected per discussion with urology. Status: Acute (5) NAKUL (acute kidney injury): Mild worsening of NAKUL currently. Hold Lasix.. Status: Acute (6) Troponin level elevated: RV strain noted, possibly acute on chronic with prior history of PE. Suspect also presence of pulmonary hypertension. She denies chest pain or pressure. NSTEMI type II during recent hospitalization, troponin at that time noted over 480, currently lower at 120. Denies chest pain. Possible strain again, currently secondary to bilateral PE. Assess TTE. Monitor on telemetry. Aspirin on hold for now with initiation of anticoagulation with stent in place, urolithiasis, possible surgical procedure, atorvastatin, recently with bradycardia, so not on beta-vicki. But resume once bleeding is less of a risk. Liters stress test 07/12/2020 with small size perfusion normality of mild severity of apical inferior and apical lateral james with reversibility noted in mid inferior and inferolateral and apical lateral james. Representing small area of ischemia in circumflex/right coronary artery. Consider repeating stratification once through acute illness. Status: Acute Plan Physical deconditioning: After recent hospitalization, generalized weakness, assessed by PT, OT. Would benefit from [facility] rehabilitation as evidenced by her performance with physical therapy. She is agreeable, arrangements underway. Attestations Medical Necessity Statement*: Continue admission for assessment management of PE, CHF, NAKUL, disposition planning and arrangements. Coding Level of Care Code Acute Attendant [employer]ated Laundry for [facility] Fwd Exam Comprehensive Diagnoses Bilateral pulmonary embolism I26.99 Hydronephrosis N13.30 Congestive heart failure I50.32 Heart failure chronicity: chronic Heart failure type: diastolic Pyuria R82.81 NAKUL (acute kidney injury) N17.9 Troponin level elevated R77.8
[2021-10-05] VITALS (7 sets, daily range): BP systolic 110–116; BP diastolic 50–76; PULSE 66–71; RESP 18–20; TEMP 36.5–36.6; O2SAT 95–98; BMI 28.6
[2021-10-05] MEDS: apixaban 5 mg Tablet 10 MG PO (02:30)
[2021-10-05 04:16] LABS: Basophils % 0.2 %; Eosinophils # 0.4 10^3/uL (0.0-0.8); Eosinophils % 8.1 %; Hematocrit 33.2 % (37.0-47.0); Hemoglobin 9.9 g/dL (11.5-15.3); Lymphocytes # 1.2 10^3/uL (0.8-4.8); Lymphocytes % 22.5 %; Mean Corpuscular HGB Conc 29.8 g/dL (30.0-36.0); Mean Corpuscular Hemoglobin 29.6 pg (28.0-34.0); Mean Corpuscular Volume 99.1 fl (81-99); Mean Platelet Volume 11.1 fL (7.4-10.4); Monocytes # 0.6 10^3/uL (0.2-0.9); Neutrophils # 3.09 10^3/uL (1.8-7.7); Neutrophils % 57.8 %; Nucleated Red Blood Cells % 0 %; Platelet Count 196 10^3/cmm (130-400); Red Blood Count 3.35 10^6/uL (4.1-5.3); Red Cell Distribution Width 17.2 % (12.1-15.1); White Blood Count 5.3 10^3/uL (4.0-10.0)
[2021-10-05 04:36] LABS: Alanine Aminotransferase 8 U/L (0-33); Albumin Level 2.9 g/dL (3.5-5.2); Alkaline Phosphatase 131 IU/L (35-105); Blood Urea Nitrogen 21 mg/dL (8-23); Calcium 9.2 mg/dL (8.5-10.5); Carbon Dioxide 23 mmol/L (22-29); Chloride 107 mmol/L (98-107); Globulin 3.5 g/dL (1.3-4.6); Glucose 107 mg/dL (65-115); Osmolality Calculated 295 mOsm/kg (285-295); Sodium 141 mmol/L (136-145); Total Bilirubin 0.5 mg/dL (0.15-1.2); Total Protein 6.4 g/dL (6.6-8.7)
[2021-10-05 04:58] LABS: Anion Gap 15.1 (5-19); Aspartate Amino Transferase 17 U/L (0-32); Potassium 4.1 mmol/L (3.5-5.1)
[2021-10-05] MEDS: levothyroxine 75 mcg Tablet PO (05:18)
[2021-10-05] MEDS: ipratropium-albuterol 3 mL Neb INHALATION (09:22)
[2021-10-05] MEDS: budesonide 0.5 mg/2 mL Neb INHALATION (09:22)
--- NOTE | 2021-10-05 10:43 | PC.SOCIAL ---
Pg 2 IMM Explained to pt Pg 2 IMM. No questions voiced. Provided pt a copy. Initialed, dated, & timed a copy & placed in chart.
--- NOTE | 2021-10-05 12:41 | PC.NURSE ---
report phoned to [facility].discharged via w/c to exit.daughter to transport pt to [facility] rehab
--- NOTE | 2021-10-05 20:57 | P.DS_ITS ---
Discharge Providers Date of Admission: 10/02/21 18:05 Date of Discharge: October 05, 2021 Attending Provider at Admission: Ronak Gaytan Attending Provider at Discharge: Ronak Gaytan Primary Care Provider: Domingo Bowser Diagnoses at Discharge Discharge Diagnosis (1) Bilateral pulmonary embolism: Status: Acute (2) Hydronephrosis: Status: Acute (3) Congestive heart failure: Status: Acute Qualifiers: Heart failure type: diastolic Heart failure chronicity: chronic Qualified Code(s): I50.32 - Chronic diastolic (congestive) heart failure Permanent problem details: Diastolic, grade 1, EF 60% on echo 03/2020 (4) Pyuria: Status: Acute (5) NAKUL (acute kidney injury): Status: Acute (6) Troponin level elevated: Status: Acute Reason for Visit Reason for Visit: Not feeling good, SOB Brief History: Pleasant 86-year-old lady returns to the hospital after recent hospitalization during which was managed for obstructive pyelonephritis, left-sided hydronephrosis, sepsis, stent placement during prior hospitalization, with Pseudomonas growing on culture, presented during this admission with shortness of breath, some persistence of nausea, generally feeling weak and orthopnea, in ER with noted mild leukocytosis 11.3, afebrile, without tachycardia, blood pressure 140/68, with improving NAKUL, creatinine down to 1.2, with improving troponin down to 121, previously 484, with pyuria and microscopic hematuria, 5- 10 RBC, 80-100 WBC, 1+ bacteria. On presentation also with very elevated D-dimer, more than 20 with history of PE in the past, not any longer on anticoagulation, on aspirin [address] chest CTA protocol, CT abdomen pelvis with noted multiple bilateral PE with some noted RV strain on CT, left internal renal stent, but moderate hydronephrosis with concern of possible stent malfunction clogging, left UPJ calculus 10 mm, colonic diverticulosis, other chronic findings in the report. With lower extremity edema. She tells me she has not taken any Lasix since last hospitalization. Hospital Course Hospital Course She was treated with anticoagulation, initially heparin drip in anticipation of possible urologic procedure, however, on review of the studies hydronephrosis was found by urology to be residual, likely to resolve entirely with removal of stone and stent. Stent was deemed to be patent. She was treated with cultures diuresis for CHF exacerbation. With some pyuria, leukocytosis noted, as well as recent pseudomonal infection. She was discharged in the last hospitalization on ciprofloxacin. It was not entirely clear why she had cefdinir listed, it appears she was prescribed on outpatient side, and ciprofloxacin is now listed as an allergy. As per discussion with urology recommendations to continue antibiotic given pseudomonal infection, continued presence of the stent and stone until both can be retrieved. Cefdinir would not provide adequate coverage and was discontinued. As Cipro is now listed as an allergy, she was empirically on Primaxin while in hospital, and set up with ertapenem IM injections after discharge with follow-up with urology. NAKUL noted on presentation, creatinine 1.2, has continued to improve since last hospitalization. With some worsening creatinine back to 1.3 yesterday additional diuresis was withheld, with Lasix transition to as needed. Also noted troponin elevation up to 120 on presentation, continually decreasing, and appears lower than last hospitalization with troponin being 480. At that time thought to be demand ischemia, as currently likely also demand secondary to bilateral PE. She had no chest pain or pressure. TTE did show RV strain with right ventricular dysfunction, likely resulting in the observed right heart failure, however, it became compensated with treatment. She maintain blood pressures. She was quite significantly deconditioned, her, generally weak, and initially was reluctant to go to skilled nurse facility, but based on her performance with therapy had agreed for rehabilitation prior to return home where she was currently accepted. She was going to be discharged on 10/04, however, due to lack of staff to admit her could not at that time proceed, and was discharged instead this morning. Physical Exam Narrative: Refer to physical exam from 10/04. I did not get to see her today before she left. Urinary Catheter Management: Klein Latex: Cath Placed During This Visit: yes Reason for Continuing Indwelling Catheter: Accurate Measurement of Urinary Output in Critically Ill Patients Urinary Catheter Date of Insertion: 10/02/21 Urinary Catheter Time of Insertion: 20:22 Discharge Data Studies Completed and Pending Completed Studies During Hospitalization Category Date Time Status CTA chest CT abdomen pelvis [CT angio chest w abd pel w Cat Scan 10/02/21 16:19 Completed con] Urgent XR chest 1V portable [id number] Urgent Exams 10/02/21 11:36 Completed CV. echo complete* [id number] Routine Ultrasound 10/02/21 Completed Pending at discharge Category Date Time Status Blood Culture Stat Lab 10/02/21 15:29 Results Radiology Impressions Chest X-Ray 10/02/21 11:36 Impression: Atherosclerosis. Chest/Abdomen/Pelvis CT 10/02/21 16:19 IMPRESSION: Multiple bilateral pulmonary emboli with RV strain. IMPRESSION: 1. Left internal renal stent. However there is moderate hydronephrosis suggesting stent malfunction or clogging. 2. Left UPJ calculus, 10 mm. 3. Colonic diverticulosis. 4. Other chronic findings as described The ADDENDUM: 10/02/21 [id number] THIS REPORT CONTAINS FINDINGS THAT MAY BE CRITICAL TO PATIENT CARE. The findings were verbally communicated via telephone conference with Ishmael Mckeon at 5:48 PM CRAPS MANAGER on 10/02/2021. The findings were acknowledged and understood. Laboratory Results WBC 5.3 10^3/uL (4.0-10.0) 10/05/21 03:21 RBC 3.35 10^6/uL (4.1-5.3) L 10/05/21 03:21 Hgb 9.9 g/dL (11.5-15.3) L 10/05/21 03:21 Hct 33.2 % (37.0-47.0) L 10/05/21 03:21 MCV 99.1 fl (81-99) H D 10/05/21 03:21 MCH 29.6 pg (28.0-34.0) 10/05/21 03:21 MCHC 29.8 g/dL (30.0-36.0) L D 10/05/21 03:21 RDW 17.2 % (12.1-15.1) H 10/05/21 03:21 Plt Count 196 10^3/cmm (130-400) 10/05/21 03:21 MPV 11.1 fL (7.4-10.4) H 10/05/21 03:21 Neut % (Auto) 57.8 % 10/05/21 03:21 Lymph % (Auto) 22.5 % 10/05/21 03:21 [place] % (Auto) 11.0 % 10/05/21 03:21 Eos % (Auto) 8.1 % 10/05/21 03:21 Baso % (Auto) 0.2 % 10/05/21 03:21 Neut # (Auto) 3.09 10^3/uL (1.8-7.7) 10/05/21 03:21 Lymph # (Auto) 1.2 10^3/uL (0.8-4.8) 10/05/21 03:21 [place] # (Auto) 0.6 10^3/uL (0.2-0.9) 10/05/21 03:21 Eos # (Auto) 0.4 10^3/uL (0.0-0.8) 10/05/21 03:21 Baso # (Auto) 0.0 10^3/uL (0.0-0.1) 10/05/21 03:21 Nucleated RBC % (auto) 0 % 10/05/21 03:21 Nucleated RBCs # 0.0 /100WBC 10/05/21 03:21 APTT 78.8 SECONDS (23.9-36.7) H 10/03/21 06:47 D-Dimer >= 20.00 ug/mIFEU (0-0.59) H 10/02/21 15:29 Sodium 141 mmol/L (136-145) 10/05/21 03:21 Potassium 4.1 mmol/L (3.5-5.1) 10/05/21 03:21 Chloride 107 mmol/L (98-107) 10/05/21 03:21 Carbon Dioxide 23 mmol/L (22-29) 10/05/21 03:21 Anion Gap 15.1 (5-19) 10/05/21 03:21 BUN 21 mg/dL (8-23) 10/05/21 03:21 Creatinine 1.1 mg/dL (0.5-0.9) H 10/05/21 03:21 GFR Calculation Not Reportable 10/05/21 03:21 Glucose 107 mg/dL (65-115) 10/05/21 03:21 Calculated Osmolality 295 mOsm/kg (285-295) 10/05/21 03:21 Lactic Acid 3.2 mmol/L (0.5-2.2) H 10/02/21 12:45 Lactic Acid (Sepsis) 1.4 mmol/L (0.5-2.2) 10/02/21 16:04 Calcium 9.2 mg/dL (8.5-10.5) 10/05/21 03:21 Total Bilirubin 0.5 mg/dL (0.15-1.2) 10/05/21 03:21 AST 17 U/L (0-32) 10/05/21 03:21 ALT 8 U/L (0-33) 10/05/21 03:21 Alkaline Phosphatase 131 IU/L (35-105) H 10/05/21 03:21 Troponin T Baseline 121 ng/L (0-10) H* 10/02/21 12:45 Troponin T 120 Minute 94.00 ng/L (0-10) H 10/02/21 15:29 Delta Troponin T -27.00 ABS# (0-10) L 10/02/21 15:29 Troponin T Hi Sens 6Hr 81.84 ng/L (0-10) H 10/02/21 19:56 Troponin T Hi Sens 6Hr Delta -39.16 ng/L (0-12) L 10/02/21 19:56 C-Reactive Protein 21.5 mg/L (0.0-4.9) H 10/02/21 12:45 NT-Pro-B Natriuret Pep 5137 pg/mL (0-450) H 10/02/21 12:45 Total Protein 6.4 g/dL (6.6-8.7) L 10/05/21 03:21 Albumin 2.9 g/dL (3.5-5.2) L 10/05/21 03:21 Globulin 3.5 g/dL (1.3-4.6) 10/05/21 03:21 Procalcitonin 0.25 ng/mL (0-0.5) 10/02/21 12:45 TSH 9.05 uIU/mL (0.27-4.20) H 10/02/21 12:45 Free T4 1.12 ng/dL (0.82-1.77) 10/02/21 12:45 Urine Color Yellow (Yellow) 10/02/21 14:58 Urine Appearance Cloudy (CLEAR) 10/02/21 14:58 Urine pH 6 (5-7) 10/02/21 14:58 Ur Specific [place] 1.020 (1.005-1.030) 10/02/21 14:58 Urine Protein Neg (Negative) 10/02/21 14:58 Urine Glucose (UA) Norm (Normal) 10/02/21 14:58 Urine Ketones Negative (Negative) 10/02/21 14:58 Urine Blood 2+ (Negative) H 10/02/21 14:58 Urine Nitrate Negative (Negative) 10/02/21 14:58 Urine Bilirubin Neg (Negative) 10/02/21 14:58 Urine Urobilinogen Norm mg/dL (Negative) 10/02/21 14:58 Ur Leukocyte Esterase 2+ (Negative) H 10/02/21 14:58 Urine RBC 5-10 /hpf (0-2) H 10/02/21 14:58 Urine WBC 80-100 /hpf (0-5) H 10/02/21 14:58 Ur Squamous Epith Cells 0-4 /hpf (0-5) H 10/02/21 14:58 Amorphous Sediment Not Reportable 10/02/21 14:58 Urine Bacteria 1+ /hpf (NONE) H 10/02/21 14:58 Vitals Last Vital Signs Temp 97.9 F 10/05/21 04:00 Pulse 70 10/05/21 11:39 Resp 18 10/05/21 09:22 BP 116/50 10/05/21 08:00 Pulse Ox 95 10/05/21 09:22 Discharge Plan Discharge Patient Disposition: er [facility] Condition: Stable Prescriptions: New Xarelto DVT-PE Treat 30d Start 15 mg (42)- 20 mg (9) tablets,dose pack See Rx Instructions ea .ROUTE .COMPLEX Qty: 51 0RF Protocol: Xarelto Dose Pack Condition: Start Dose/Route: 15 mg twice daily Instruction: after 21 days, Condition: Transition to Dose/Route: 20 mg once daily Instruction: thereafter Rx Instructions: Take one-15 mg tablet twice daily for 21 days, then one-20 mg tablet once daily; must take with meal/food ertapenem 1 gram recon soln 1 g IM DAILY 14 Days Qty: 14 0RF furosemide 20 mg tablet 10 mg PO DAILY PRN (Reason: edema) Qty: 30 0RF Continued anastrozole 1 mg tablet 1 mg PO BEDTIME 0RF Anoro Ellipta 62.5-25 mcg/actuation blister with device 1 inh inhalation DAILY Qty: 60 3RF levothyroxine 75 mcg tablet 75 mcg PO QAM 0RF atorvastatin 10 mg tablet 10 mg PO BEDTIME 0RF isosorbide mononitrate 30 mg tablet extended release 24 hr 15 mg PO BEDTIME 0RF benzonatate 100 mg capsule 200 mg PO TID PRN (Reason: Cough) 0RF Vitamin D3 2 cap PO DAILY 0RF Symbicort 80-4.5 mcg/actuation Hfa Aerosol Inhaler 2 puff INHALATION BID 0RF Discontinued aspirin 325 mg tablet 325 mg PO BEDTIME 0RF cefdinir 300 mg capsule 300 mg PO Q12H 0RF Rx Instructions: for 7 day rx filled 09/24/21 Discharge Orders: Discharge Order (Routine); Ordered 10/05/21 Ordered By: Ronak Gaytan Other Ambulatory Orders: Physical Therapy Eval and Treat Outpatient (Order) Timeframe: 1 Week Facility: [facility] - Location: Physical Therapy Ordered By: Ronak Gaytan Referrals: SNF, PCP [Other] - 4-7 days [facility] [Outside] Domingo Bowser [Primary Care Provider] - Raul Riggs MD [Physician] - 10/10/21 9:00 am Discharge Diet: Cardiac Discharge Activity: Increase activity as tolerated and As per PT/OT instructions Patient Instructions: Ertapenem (By injection), Rivaroxaban (By mouth), Heart Failure (GEN), Pulmonary Embolism (GEN), Acute Kidney Injury (GEN), Ureteral Stent Placement (GEN) Activity Restrictions/Additional Instructions: Please continue ertapenem due to recent pseudomonal urinary tract infection with ureteral stent in place. Please follow-up with urology for retrieval of ureteral stone and stent. Anticoagulation will need to be discontinued 2 days prior to any procedure. Continue anticoagulation for pulmonary emboli. Right heart failure noted while in the hospital, improved. Diuretics for now not continued due to soft blood pressure, mild acute kidney injury and improvement in condition. Please follow-up renal function at next appointment for resolution of acute kidney injury. Troponin has recently been noted elevated, thought to be demand ischemia, still some elevation noted during this admission, 121-94-81. Lower than during prior admit. Again possibly demand ischemia secondary to pulmonary emboli. Once recovering from acute episode of illness, please refer for additional stress testing. Please follow-up thyroid function in 3 weeks for subclinical hypothyroidism. Discharge Attestations Time Spent in Discharge Care*: greater than 30 min Quality Metrics Clinical Quality Measures [ No reported AMI, CVA or VTE this stay] Coding Level of Care Code Acute Chg FW DC note Diagnoses Bilateral pulmonary embolism I26.99 Hydronephrosis N13.30 Congestive heart failure I50.32 Heart failure type: diastolic Heart failure chronicity: chronic Pyuria R82.81 NAKUL (acute kidney injury) N17.9 Troponin level elevated R77.8
== END 2021-10-05 12:42 | disposition skilled nursing facility (03) | DRG 175 ==
LOC: ER 18:04 → CSU 18:27
PROVIDERS: Internal Medicine; Admitting Provider Internal Medicine; Emergency Provider Emergency Medicine; PCP Family Medicine; Visit Provider Internal Medicine
DX: I26.99 Other pulmonary embolism without acute cor pulmonale (principal); I50.33 Acute on chronic diastolic (congestive) heart failure; N13.2 Hydronephrosis with renal and ureteral calculous obstruction; N17.9 Acute kidney failure, unspecified; I27.20 Pulmonary hypertension, unspecified; J43.9 Emphysema, unspecified; I11.0 Hypertensive heart disease with heart failure; I25.2 Old myocardial infarction; C50.911 Malignant neoplasm of unspecified site of right female breast; Z17.0 Estrogen receptor positive status [ER+]; Z79.811 Long term (current) use of aromatase inhibitors; Z92.3 Personal history of irradiation; Z86.711 Personal history of pulmonary embolism; E78.5 Hyperlipidemia, unspecified; E03.9 Hypothyroidism, unspecified; Z87.440 Personal history of urinary (tract) infections; Z96.0 Presence of urogenital implants; Z88.1 Allergy status to other antibiotic agents
CPT/HCPCS: 36415; 51701; 51702; 71045; 71275; 74177; 80053; 81001; 83605; 83880; 84145; 84439; 84443; 84484; 85025; 85378; 85730; 86140; 87040; 87077; 87086; 87186; 93005; 93306; 94640; 94664; 96365; 96375; 97110; 97161; 97165; 97530; 97535; 99285; J0743; J1335; J1644; J1940; J7040; J7626; J8999; Q9967

== ENCOUNTER 2021-10-21 07:05 | Day surgery (SDC) | payer MEDICARE, SELFPAY ==
[2021-10-18 14:34] VITALS: BMI 30.1
[2021-10-21] VITALS (9 sets, daily range): BP systolic 113–139; BP diastolic 59–79; PULSE 55–76; RESP 13–18; TEMP 36.3–37.1; O2SAT 93–98
--- NOTE | 2021-10-21 | SCC_ITS ---
Procedure done: 1. Cystoscopy, removal of left ureteral stent 2. Left retrograde ureteropyelogram 3. Left ureteroscopy, laser lithotripsy left proximal ureteral stone, impacted 4. Left flexible RENOSCOPY laser lithotripsy treatment of at least 3 separate stones in the left lower pole previously identified on CT scan 5. Replacement of LEFT ureteral stent (7 Croatian by 26 cm double-pigtail without string) 49.0 seconds of fluoroscopic guidance, for a cumulative dose of 11.00 mGy, was provided to Dr. Riggs by the radiology department. C-arm images of the abdomen were saved for the patient's permanent record. [facility] [place]
--- NOTE | 2021-10-21 07:10 | ECG_ITS ---
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 Measurements Intervals [place] Rate: 66 P: 12 CO: 129 QRS: -17 QRSD: 104 T: -2 QT: 399 QTc: 419 Interpretive Statements SINUS RHYTHM WITH SINUS ARRHYTHMIA LOW QRS VOLTAGE IN PRECORDIAL LEADS [QRS DEFLECTION < 1.0 mV IN CHEST LEADS] PATTERN CONSISTENT WITH PULMONARY DISEASE INCOMPLETE RIGHT BUNDLE BRANCH BLOCK [90+ ms QRS DURATION, TERMINAL R IN V1/V2, 40+ ms S IN I/aVL/V4/V5/V6] MODERATE VOLTAGE CRITERIA FOR LVH, CONSIDER NORMAL VARIANT [MEETS CRITERIA IN ONE OF: R(aVL), S(V1), R(V5), R(V5/V6)+S(V1)] Compared to ECG 10/02/2021 17:20:02 T-wave abnormality no longer present Electronically Signed On 10-21-2021 20:29:43 CDT by Kolby Tejeda M.D. [id number]
--- NOTE | 2021-10-21 07:10 | SC_ITS ---
WS: [id number] INTRAOPERATIVE TECHNIQUE: 2 Spot fluoroscopic images for intraoperative purposes. FLUOROSCOPY TIME: 49.0 seconds CLINICAL INFORMATION: Left ureteral calculus COMPARISON: None. FINDINGS: Placement were exchanged of LEFT double-J ureteral stent SC/C-arm FL for Urology IMPRESSION: Images obtained for intraoperative purposes.
--- NOTE | 2021-10-21 07:10 | XR_ITS ---
WS: [id number] KUB, AP view, 10/21/2021 Clinical Data: Left proximal ureteral stone Comparison: None. Findings: There is a left ureteral stent in good position. There are numerous calcifications overlying the infe rior left kidney. There is a 1.3 cm proximal left ureteral calculus adjacent to the ureteral stent. Fecal material obscures detail over both kidneys. There are clips in the right upper quadrant from a cholecystectomy. 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 XR/XR KUB [id number] Impression: 1. Left ureteral stent. 2. Left renal calculi and a proximal left ureteral calculus.
--- NOTE | 2021-10-21 08:01 | W.PM.OPSUD ---
Surgery/Procedure H&P Update DATE OF PROCEDURE: October 21, 2021 DATE H&P PERFORMED: 10/10/21 H&P UPDATE INFORMATION: I have reviewed H&P completed within last 30 days, I have examined patient prior to procedure, No changes to prior documentation and H&P to be scanned into chart PREOP DIAGNOSIS: Left UPJ stone, status post obstructive pyelonephritis with stenting PLANNED PROCEDURE: Operation Date: 10/21/21 08:45 Proposed Procedures p Cystoscopy 10317/84113/26 68334/ N20.1/N13.30(Not Applicable) - Raul Riggs MD s Ureteral Stent Placement(Not Applicable) - Raul Riggs MD
[2021-10-21 08:04] LABS: Basophils % 0.4 %; Eosinophils # 0.3 10^3/uL (0.0-0.8); Eosinophils % 3.2 %; Hematocrit 35.5 % (37.0-47.0); Hemoglobin 11.3 g/dL (11.5-15.3); Lymphocytes # 1.4 10^3/uL (0.8-4.8); Lymphocytes % 16.5 %; Mean Corpuscular HGB Conc 31.8 g/dL (30.0-36.0); Mean Corpuscular Hemoglobin 30.5 pg (28.0-34.0); Mean Corpuscular Volume 95.7 fl (81-99); Mean Platelet Volume 10.3 fL (7.4-10.4); Monocytes # 0.7 10^3/uL (0.2-0.9); Monocytes % 8.8 %; Neutrophils # 5.92 10^3/uL (1.8-7.7); Neutrophils % 70.4 %; Nucleated Red Blood Cells % 0 %; Platelet Count 364 10^3/cmm (130-400); Red Blood Count 3.71 10^6/uL (4.1-5.3); Red Cell Distribution Width 16.3 % (12.1-15.1); White Blood Count 8.4 10^3/uL (4.0-10.0)
[2021-10-21] MEDS: sodium chloride 0.9% 1,000 ML 30 ML IV (08:15)
[2021-10-21 08:31] LABS: Anion Gap 10.9 (5-19); Blood Urea Nitrogen 28 mg/dL (8-23); Calcium 9.7 mg/dL (8.5-10.5); Carbon Dioxide 26 mmol/L (22-29); Chloride 104 mmol/L (98-107); Glucose 104 mg/dL (65-115); Osmolality Calculated 290 mOsm/kg (285-295); Potassium 3.9 mmol/L (3.5-5.1); Sodium 137 mmol/L (136-145)
--- NOTE | 2021-10-21 08:33 | PM.OP ---
Operative Report Date of procedure: October 21, 2021 Pre-op diagnosis: Preop Diagnosis Left UPJ stone, status post obstructive pyelonephritis with stenting Post-op diagnosis: Same Procedure done: 1. Cystoscopy, removal of left ureteral stent 2. Left retrograde ureteropyelogram 3. Left ureteroscopy, laser lithotripsy left proximal ureteral stone, impacted 4. Left flexible RENOSCOPY laser lithotripsy treatment of at least 3 separate stones in the left lower pole previously identified on CT scan 5. 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 Brief History: Ms. Pa is a very pleasant 86-year-old white female who I first evaluated several weeks back with severe sepsis related to obstructive pyelonephritis. She underwent emergency stenting. On IV antibiotics still for Pseudomonas UTI. Her recovery has been complicated by development of bilateral pulmonary emboli associated with DVT. She has been on appropriate anticoagulant therapy for that and is recovering well. Admitted this hospital stay for initial attempt at definitive treatment of the stone. Procedure: After routine preoperative evaluation examination and obtaining of informed consent she was taken to the operating suite on 10/21/2021 where general anesthesia was administered without difficulty after appropriate timeout was performed, SCDs confirmed to be functioning, preoperative antibiotics administered, beta-vicki protocol confirmed. Prepped and draped in usual sterile fashion in dorsolithotomy position paying careful attention to avoiding pressure points. 21 Brazilian cystoscope with 30 degree lens was introduced into the urethra meatus and advanced into the bladder under videoscopy. The bladder was systematically examined. No stones were seen. Stent was in the expected position. A flexible tip guidewire was then advanced up the left ureter next to the stone curling in the area of the upper pole calyx. The stent was grasped with grasping forceps and gently withdrawn through the urethral meatus and a second guidewire was passed up the stent into appropriate position. The stent was then removed without difficulty. An open-ended ureteral catheter was advanced over the second wire which was the working wire and the first wire was secured to the drapes as a safety wire. A small amount of contrast was instilled into the collecting system for a left RETROGRADE PYELOGRAM. The system appear to be dilated. Filling defects consistent with stones were identified in the proximal ureter and lower pole. The working guidewire was then passed again back through the open-ended ureteral catheter and then the wire was replaced and the catheter removed. Confirmation of the location of the left proximal ureteral stone was made as well as multiple left lower pole renal calculi. A 24 cm ureteral access sheath was advanced over the guidewire up the left ureter to the hub easily. A semirigid offsets ureteroscope was advanced through the sheath over the guidewire to the stone which was encountered in expected position with evidence of some impaction into the wall. Be that as it made there was still good access to the stone. A 365 ?m thulium superpulse laser fiber was utilized for fragmentation of the stone which went well. Some of the fragments migrated to the proximal ureter where the angulation was not as good and for that reason a flexible ureteroscope was then utilized to finish up the small remaining fragments from the ureteral stone. Visualization was good so was decided to attempt fragmentation of the renal stones seen on the CT scan originally in the lower pole. Video flexible ureteroscope was utilized for this purpose and all the stones that were identified were completely fragmented. No large fragments remaining was mostly sand. Every stone that was identified and was treated. The ureteral access sheath was backed down onto the hub of the scope and the scope was removed under direct visualization and the ureter appeared to be in good shape. There was a lot of inflammatory change at the site of impaction of the proximal ureteral stone. Otherwise the ureter was in good shape. The bladder was drained. A 26 cm by 7 Brazilian ureteral stent was advanced over the guidewire into appropriate position utilizing fluoroscopy and cystoscopy. No string. Bladder was drained again and the procedure was completed. She tolerated the procedure well without complications and was awakened in the operating room. No Klein catheter. Return to the recovery room in stable condition. PLANS: 1. Maintain IV antibiotics for 5 more days. 2. Follow-up in clinic with a KUB on Thursday 3. Anticipate leaving the stent in for least 2 weeks for assistance with healing of the impaction site of the LEFT proximal ureteral stone as well as passive dilation to pass the remaining sand and small fragments.
[2021-10-21] MEDS: ertapenem 1,000 MG in sodium chloride 0.9% (plus) 100 ML 200 MG IV (08:36)
--- NOTE | 2021-10-21 08:42 | P.ANESASSM_ITS ---
Pre-Anesthetic Assessment Height/Weight: Height 1.6 m Weight 77.111 kg Temp Pulse Resp BP Pulse Ox 98.7 F 76 18 128/79 98 10/21/21 07:37 10/21/21 07:37 10/21/21 07:37 10/21/21 07:37 10/21/21 07:37 Preop Diagnosis: Left UPJ stone, status post obstructive pyelonephritis with stenting Operation Date: 10/21/21 08:45 Proposed Procedures p Cystoscopy 74576/05855/26 01170/ N20.1/N13.30(Not Applicable) - Raul Riggs MD s Ureteral Stent Placement(Not Applicable) - Raul Riggs MD Familial anesthetic complications: None Was Beta Huan taken within 24 hours: Yes Was Clonidine taken within 24 hours: N/A Last intake: Intake Last Liquid Date 10/20/21 Last Liquid Time 18:00 Last Solid Date 10/20/21 Last Solid Time 19:00 Social No alcohol and No tobacco Exam alert, oriented x 3, clear to auscultation bilaterally and regular rate & rhythm Airway Submandibular: within normal limits Cervical ROM: within normal limits Mallampati: Class II Dentition: false (upper) Pulmonary Asthma CV/HEM Congestive Heart Failure, Deep Vein Thrombosis (PE) and Hypertension Blood thinner Chronic Renal Insufficiency GI Gastroesophageal Reflux Disease Anesthetic Plan ASA status: 3 Anesthesia: General Risk of > 500 ml blood loss (7ml/kg in children): No Medications/Allergies Home Medications Medication Instructions Recorded Confirmed Last Taken Type anastrozole 1 mg tablet 1 mg PO BEDTIME 05/08/20 10/21/21 10/20/21 History umeclidinium 62.5 mcg-vilanterol 1 inh INHALATION DAILY #60 ea 06/25/21 10/21/21 10/20/21 Rx 25 mcg/actuation powdr for inhalation (Anoro Ellipta) atorvastatin 10 mg tablet 10 mg PO BEDTIME 09/17/21 10/21/21 10/20/21 History isosorbide mononitrate 30 mg 15 mg PO BEDTIME 09/17/21 10/21/21 10/20/21 History tablet,extended release 24 hr levothyroxine 75 mcg tablet 75 mcg PO QAM 09/17/21 10/21/21 10/21/21 05:00 History benzonatate 100 mg capsule 200 mg PO TID PRN 10/02/21 10/21/21 10/20/21 History budesonide-formoterol HFA 80 2 puff INHALATION BID 10/02/21 10/21/21 10/20/21 History mcg-4.5 mcg/actuation aerosol inhaler (Symbicort) rivaroxaban 15 mg (42)-20 mg (9) See Rx Instructions .ROUTE 10/04/21 10/21/21 10/20/21 Rx tablets in a starter pack (Xarelto .COMPLEX #51 ea DVT-PE Treat 30d Start) furosemide 20 mg tablet 10 mg PO DAILY PRN #30 tab 10/05/21 10/21/21 10/20/21 Rx bisacodyl 10 mg rectal suppository 10 mg VA DAILY PRN 10/10/21 10/21/21 10/20/21 History bisacodyl 5 mg tablet,delayed 5 mg PO DAILY 10/10/21 10/21/21 10/20/21 History release (Fleet Laxative (bisacodyl)) sodium phosphates 19 gram-7 118 ml VA DAILY PRN 10/10/21 10/21/21 10/20/21 History gram/118 mL enema Allergies Allergy/AdvReac Type Severity Reaction Status Date / Time ciprofloxacin [From Cipro] Allergy Unknown Unknown Verified 10/18/21 14:31 metronidazole [From Flagyl] Allergy Unknown Unknown Verified 10/18/21 14:31 nitrofurantoin Allergy Unknown Unknown Verified 10/18/21 14:31 [From Macrobid] Penicillins Allergy Unknown Unknown Verified 10/18/21 14:31 Sulfa (Sulfonamide Allergy Unknown Unknown Verified 10/18/21 14:31 Antibiotics) hydrochlorothiazide Allergy Unknown Verified 10/18/21 14:31 triamterene Allergy Unknown Verified 10/18/21 14:31 Current Medications Generic Name Dose Route Start Last Admin Trade Name Freq PRN Reason Stop Dose Admin Sodium Chloride 1,000 mls @ 30 mls/hr 10/21/21 07:30 10/21/21 08:15 Sodium Chloride 0.9% IV 10/22/21 07:29 30 mls/hr .Q24H ALBERT Administration PFSH Anesthesia Medical History (Updated 10/10/21 @ 12:15 by Raul Riggs MD) Abnormal stress test (~07/2020) with subsequent cath without obstructive disease Acute pyelonephritis Acute renal failure 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, invasive ductal carcinoma, 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, treated with radiotherapy ending 10/2018, lumpectomy, on arimidex Congestive heart failure Diastolic, grade 1, EF 60% on echo 03/2020 Elevated troponin History of bone density study (~07/2021) osteopenia History of breast cancer History of left heart catheterization (~11/2020) with right heart cath, PCWP 23 No significant disease in LAD, left main, circumflex or RCA EF 50% History of PFTs 04/2020 obstructive ventilatory defect, normal DLCO, normal post- bronchodilator spirometry History of pulmonary embolism (~2004) Hydronephrosis with urinary obstruction due to renal calculus Hyperlipidemia Hypothyroidism Kidney stones Osteopenia Pulmonary hypertension RVSP 40.9 mmHg on echo 03/2020 Recurrent urinary tract infection Rhabdomyolysis Septic shock Shortness of Breath Ureteropelvic junction (UPJ) obstruction, left Surgical History (Updated 10/10/21 @ 12:15 by Raul Riggs MD) History of breast biopsy History of bunionectomy History of cataract surgery History of detached retina repair History of hysterectomy History of lumpectomy right sided S/P ureteral stent placement Status post cholecystectomy Status post cystoscopy Family History Mother , at age 82 Pneumonia Sister Cancer multiple myeloma Son Myocardial infarction Father , at age 67 CAD (coronary artery disease) Other Diabetes Social History Smoking and tobacco status: never smoked Second hand smoke exposure: Yes Alcohol intake: never Caregiver/support person: Yes Lives independently: Yes Household members: family Marital status: / Current occupational status: retired Pets and animals: Yes History of recent travel: No Current gender identity: Female Data Anesthesia : 10/21/21 07:50 10/21/21 07:50 Short CBC 10/21/21 Range/Units 07:50 WBC 8.4 (4.0-10.0) 10^3/uL Hgb 11.3 L (11.5-15.3) g/dL Hct 35.5 L (37.0-47.0) % MCV 95.7 (81-99) fl Plt Count 364 (130-400) 10^3/cmm Neut % (Auto) 70.4 % Neut # (Auto) 5.92 (1.8-7.7) 10^3/uL BMP 10/21/21 07:50 Sodium 137 Potassium 3.9 Chloride 104 Carbon Dioxide 26 Glucose 104 Calcium 9.7 Cardiac Studies: Echocardiogram 10/02/21 Echocardiogram Ultrasound 03/06/20 Sestamibi Stress Test (Cardiology) 07/12/20
[2021-10-21] MEDS: iohexol 300 mg/mL 50 mL Btl (OR ONLY) XX (09:09)
--- NOTE | 2021-10-21 14:55 | ANE.PACU2 ---
Inpatient post-anesthesia follow up: Airway intact: Yes Vital signs: Temperature 97.8 F Pulse Rate 60 Respiratory Rate 18 Blood Pressure 139/73 Pulse Oximetry 96 Oxygen Delivery Me thod Room Air Oxygen Flow Rate 6 Fraction of Inspir ed Oxygen Hydration adequate: Yes Nausea and vomiting: No Pain level: 2 Mental status: Baseline
[2021-10-23 22:09] LABS: Stone Source LEFT URETER
== END 2021-10-21 11:46 | disposition home or self-care (01) ==
PROVIDERS: PCP Family Medicine; Visit Provider Urology
PROC: 0TJB8ZZ Inspection of Bladder, Via Natural or Artificial Opening Endoscopic (ICD-10-PCS; CPT 52000; principal; 2021-10-21 08:25)
PROC: (CPT 50605; 2021-10-21 08:25)
PROC: (CPT 52310; 2021-10-21 08:25)
PROC: (CPT 52356; 2021-10-21 08:25)
PROC: (CPT 74420; 2021-10-21 08:25)
DX: N20.1 Calculus of ureter (principal); N13.30 Unspecified hydronephrosis; I11.0 Hypertensive heart disease with heart failure; I50.9 Heart failure, unspecified; Z86.718 Personal history of other venous thrombosis and embolism; J44.9 Chronic obstructive pulmonary disease, unspecified; I50.30 Unspecified diastolic (congestive) heart failure; Z85.3 Personal history of malignant neoplasm of breast; E78.5 Hyperlipidemia, unspecified; E03.9 Hypothyroidism, unspecified
CPT/HCPCS: 52356; 36415; 74018; 76000; 80048; 82365; 85025; 88300; 93005; C2625; J1335; J2405; J2704; J2710; J3010; J3490; J7030

== ENCOUNTER 2021-10-25 08:22 | Outpatient (CLI) | payer MEDICARE, SELFPAY ==
--- NOTE | 2021-10-25 08:38 | XR_ITS ---
WS: [id number] KUB, AP view, 10/25/2021 Clinical Data: stone Comparison: KUB, 10/21/2021. Findings: The left ureteral stent remains in good position. The proximal left ureteral calculus is not visualized. There are still calcifications overlying the l eft kidney but fecal material and bowel gas obscure detail. There are clips in the right upper quadra nt from a cholecystectomy. XR/XR KUB [id number] Impression: 1. No change in left ureteral stent in the proximal left ureteral calculus is n ot visualized. 2. Left renal calcifications are still present.
== END 2021-10-25 08:23 | disposition home or self-care (01) ==
LOC: RAD 08:26
PROVIDERS: PCP Family Medicine; Visit Provider Urology
DX: N20.1 Calculus of ureter (principal); Z96.0 Presence of urogenital implants; N20.0 Calculus of kidney
CPT/HCPCS: 74018

== ENCOUNTER 2021-10-29 12:35 | Emergency (ER) | payer MEDICARE, SELFPAY ==
[2021-10-29 12:47] VITALS: BP 115/84; PULSE 65; RESP 16; TEMP 36.4; O2SAT 95; BMI 29.7
--- NOTE | 2021-10-29 13:05 | XR_ITS ---
WS: [id number] Exam: XR knee RT 3V* [id number] Date/Time of Exam: 10/29/2021 1:18 PM Reason For Exam: right knee pain No acute fracture or dislocation. No joint effusion. Marked narrowing of the medial joint compartment with near [id number] articulation. There may be loose joint bodies present. XR/XR knee RT 3V* [id number] IMPRESSION: 1. Advanced degenerative change of the medial joint compartment. No fracture or joint effusion noted.
--- NOTE | 2021-10-29 13:05 | USCV_ITS ---
Bonnie Pa Age: 86 Gender: F : 1935 Exam Date: 10/29/2021 13:20 Ordering Phys: Ko Gomez Technologist: Roman Martell [place] [facility] [facility] [place]: lt leg pain and swelling PROCEDURES: Venous duplex imaging was performed in only the right lower extremity. The following venous structures were evaluated: common femoral vein, profunda vein, proximal portion of the greater saphenous vein, superficial femoral vein, and the popliteal vein. In addition, the posterior tibial and peroneal trunk were evaluated. On the right side, the common femoral, superficial femoral, profunda femoral, popliteal, posterior tibial, greater saphenous veins, and the peroneal trunk were identified and interrogated in the standard fashion. These veins were found to be easily compressible with spontaneous blood flow. No evidence of insufficiency or thrombus noted. FINDINGS: Normal 2-D Doppler and augmentation and compressibility throughout the lower extremity venous structures. Additional imaging through the proximal calf veins also reveals no thrombus. Limited evaluation of the greater saphenous vein is patent with no thrombus.. CONCLUSIONS No evidence of right lower extremity DVT. Sai Sepulveda MD (Electronically Signed) Final Date: 30 October 2021 10:24 S
--- NOTE | 2021-10-29 13:06 | ED_ITS ---
HPI - Extremity Problem General: Chief complaint: Extremity Injury, Lower Stated complaint: RIGHT LEG PAIN, POSSIBLE BLOOD CLOT Time Seen by Provider: 10/29/21 12:53 History of Present Illness: Patient is a 86-year-old female comes to the ED with right leg pain. Symptoms have been going on for the past month. Patient did have some blood clots in her lungs and was put on Xarelto within the last month. She denies any injury or trauma to cause pain. Pain started on her right lower leg down by her ankle and the pain hassince moved up and currently is behind her knee. Any weightbearing on right leg causes worsening pain. She currently uses a walker to help with ambulation. Denies any chest pain, shortness of breath or hemoptysis. Associated symptoms: Deny chest pain, fever(s) or rash Review of Systems Const: Denies: fever(s), chills or fatigue Eyes: Denies: change in vision or eye discomfort ENMT: Denies: throat pain, odynophagia, nasal discharge or nasal congestion Card: Denies: chest pain, palpitations, edema, swelling of feet/ankles, dyspnea on exertion or orthopnea Resp: Denies: dyspnea, productive cough or non-productive cough GI: Denies: abdominal pain, nausea, vomiting, diarrhea, constipation or h ematochezia : Denies: flank pain, dysuria or hematuria Musc: Reports: extremity pain (right lower leg pain); Denies: neck pain, back pain or extremity swelling Skin/Breast: Denies: rash or new lesions Neuro: Denies: headache(s), numbness in extremities or weakness in extremities [facility] ED PFSH: Medical History Abnormal stress test (~07/2020) with subsequent cath without obstructive disease Acute pyelonephritis Acute renal failure 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, invasive ductal carcinoma, 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, treated with radiotherapy ending 10/2018, lumpectomy, on arimidex Congestive heart failure Diastolic, grade 1, EF 60% on echo 03/2020 Elevated troponin History of bone density study (~07/2021) osteopenia History of breast cancer History of left heart catheterization (~11/2020) with right heart cath, PCWP 23 No significant disease in LAD, left main, circumflex or RCA EF 50% History of PFTs 04/2020 obstructive ventilatory defect, normal DLCO, normal post- bronchodilator spirometry History of pulmonary embolism (~2004) Hydronephrosis with urinary obstruction due to renal calculus Hyperlipidemia Hypothyroidism Kidney stones Osteopenia Pulmonary hypertension RVSP 40.9 mmHg on echo 03/2020 Recurrent urinary tract infection Rhabdomyolysis Septic shock Shortness of Breath Ureteropelvic junction (UPJ) obstruction, left Surgical History History of breast biopsy History of bunionectomy History of cataract surgery History of detached retina repair History of hysterectomy History of lumpectomy right sided S/P ureteral stent placement Status post cholecystectomy Status post cystoscopy Family History Mother , at age 82 Pneumonia Sister Cancer multiple myeloma Son Myocardial infarction Father , at age 67 CAD (coronary artery disease) Other Diabetes Social History Smoking and tobacco status: never smoked Second hand smoke exposure: Yes Alcohol intake: never Caregiver/support person: Yes Lives independently: Yes Household members: family Marital status: / Current occupational status: retired Pets and animals: Yes History of recent travel: No Current gender identity: Female Physical Exam Const: COMMON NORMALS: patient oriented x3 and alert GENERAL APPEARANCE: cooperative and comfortable HENMT: COMMON NORMALS: normocephalic HEAD & SCALP: normocephalic MOUTH: Normal oral and palatal mucosa present THROAT: posterior oropharynx normal and uvula midline Neck/C-Spine: COMMON NORMALS: supple GENERAL: Yes normal visual inspection Resp: COMMON NORMALS: normal respiratory effort, No retractions, No use of accessory muscles and clear to auscultation bilaterally AUSCULTATION: clear to auscultation bilaterally Cardio: COMMON NORMALS: regular rate, regular rhythm, S1 normal heart sound present, S2 normal heart sound present, No gallops present (Cardio), No clicks present (Cardio), No murmurs present (Cardio) and Peripheral pulses 2+ throughout RATE: regular rate RHYTHM: regular rhythm HEART SOUNDS: S1 normal heart sound present and S2 normal heart sound present PERIPHERAL PULSES: Peripheral pulses 2+ throughout GI: COMMON NORMALS: Normal to inspection, nondistended, normoactive bowel sounds present, Soft to palpation, non-tender and no masses PALPATION: Yes Soft to palpation : COMMON NORMALS: Yes no CVA tenderness BLADDER/KIDNEY EXAM: Yes no CVA tenderness Back/Pelvis: COMMON NORMALS: no CVA tenderness Extremity: GENERAL: Yes calf tenderness (right calf) and Yes edema (1+ pitting edema in right foot and ankle.) Neuro: COMMON NORMALS: patient oriented x3 and moves all extremities SENSORIUM/ORIENTATION: Yes alert Skin: GENERAL SKIN EXAM: dry skin Course Vital Signs: Vital signs: Vital Signs Temperature 97.5 F L 10/29/21 12:47 Pulse Rate 72 10/29/21 14:23 Respiratory Rate 16 10/29/21 14:23 Blood Pressure 118/78 10/29/21 14:23 Pulse Oximetry 94 10/29/21 14:23 MDM - Extremity (Nontraumatic) Medical Decision Making Patient is a 86-year-old female comes to the ED with right leg pain. Denies any acute trauma, fall or injury to cause pain. This pain has been going on for the past several weeks. Pain is located in the right knee. Patient denies any chest pain, shortness of breath or hemoptysis. She has some right lower extremity 1+ pitting edema and right calf tenderness. Knee x-ray?advanced degenerative change in the medial joint compartment no fracture or joint effusion. Ultrasound venous duplex of right lower extremity showed no DVT or blood clots. Patient diagnosed with osteoarthritis of right knee and was discharged home. Told to follow-up with PCP in the next 5 to 7 days for reevaluation. Return to ED precautions given. Patient understood and agree with plan. Lab Data Radiology Impressions Knee X-Ray 10/29/21 13:05 IMPRESSION: 1. Advanced degenerative change of the medial joint compartment. No fracture or joint effusion noted. Imaging Data US Vascular: My impression: Ultrasound venous duplex right lower extremity?prelim report - DVT or blood clots seen. Discharge Plan Discharge Patient Disposition: Home Clinical Impression: Osteoarthritis of right knee Qualifiers: Osteoarthritis type: primary Qualified Code(s): M17.11 - Unilateral primary osteoarthritis, right knee Condition: Stable Prescriptions: No Action anastrozole 1 mg tablet 1 mg PO BEDTIME 0RF Anoro Ellipta 62.5-25 mcg/actuation blister with device 1 inh inhalation DAILY Qty: 60 3RF bisacodyl 10 mg suppository 10 mg UT DAILY PRN (Reason: Constipation) 0RF bisacodyl [Fleet Laxative (bisacodyl)] 5 mg tablet,delayed release (DR/EC) 5 mg PO DAILY 0RF sodium phosphates 19-7 gram/118 mL enema 118 ml UT DAILY PRN (Reason: Constipation) 0RF ertapenem 1 gram recon soln 1 g IM DAILY 0RF Xarelto 20 mg tablet 20 mg PO DAILY Qty: 30 3RF Rx Instructions: must administer with evening meal doxycycline hyclate 100 mg tablet 100 mg PO BID Qty: 60 4RF levothyroxine 75 mcg tablet 75 mcg PO QAM 0RF atorvastatin 10 mg tablet 10 mg PO BEDTIME 0RF isosorbide mononitrate 30 mg tablet extended release 24 hr 15 mg PO BEDTIME 0RF benzonatate 100 mg capsule 200 mg PO TID PRN (Reason: Cough) 0RF budesonide-formoterol [Symbicort] 80-4.5 mcg/actuation Hfa Aerosol Inhaler 2 puff INHALATION BID 0RF furosemide 20 mg tablet 10 mg PO DAILY PRN (Reason: edema) Qty: 30 0RF Discharge Orders: Discharge ED (Routine); Ordered 10/29/21 Ordered By: Ko Gomez Referrals: Domingo Bowser [Primary Care Provider] - Discharge Diet: Regular Discharge Activity: Increase activity as tolerated Patient Instructions: Osteoarthritis (DC) Activity Restrictions/Additional Instructions: Follow-up with medical provider as directed in the next 7-10 days for reevaluation. Continue taking all home medications as previously prescribed. Apply cold pack on right knee and elevate right leg to help with symptoms. Take [id number] Tylenol for pain. Return to the ER or your medical provider if condition worsens. Please read and understand discharge instructions. Thank you for choosing [facility] for your healthcare needs today. Please realize this is an emergency room and that we are providing you with a medical screening exam and this may not be complete and all inclusive of all the testing and or work up that you may need to determine your ailment or severity of your illness. It is very important that you follow up as instructed or that you return to the Emergency Department should you have concerns or if your condition changes or worsens in any way. Coding Level of Care Code ED Refining Engineer for Selvin Fwjamia Exam Comprehensive
[2021-10-29 13:09] VITALS: BP 115/84; PULSE 65; RESP 16; O2SAT 95
[2021-10-29] MEDS: acetaminophen 325 mg Tablet 650 MG PO (13:29)
[2021-10-29 14:23] VITALS: BP 118/78; PULSE 72; RESP 16; O2SAT 94
== END 2021-10-29 15:55 | disposition home or self-care (01) ==
PROVIDERS: Emergency Provider Physician Assistant; PCP Family Medicine
DX: M17.11 Unilateral primary osteoarthritis, right knee (principal); R60.0 Localized edema; I50.30 Unspecified diastolic (congestive) heart failure; Z86.711 Personal history of pulmonary embolism; Z79.01 Long term (current) use of anticoagulants; Z85.3 Personal history of malignant neoplasm of breast
CPT/HCPCS: 73562; 93971; 99283

== ENCOUNTER 2021-11-15 09:12 | Outpatient (CLI) | payer MEDICARE, SELFPAY ==
--- NOTE | 2021-11-15 09:26 | XR_ITS ---
WS: [id number] KUB, AP view, 11/15/2021 Clinical Data: left renal stone Comparison: KUB, 10/25/2021. Findings: No abnormal intraabdominal masses are seen. There is no dilatated small bowel or evidence of obstruct ion. There are calcifications overlying the left kidney unchanged. The left ureteral stent remains in good position. There are clips in the right upper quadrant from a cholecystectomy. There is a moderate am ount of fecal material throughout the colon. There is a dextroscoliosis of lumbar spine with moderate to severe osteoarthritis. XR/XR KUB [id number] Impression: 1. Left ureteral stent. 2. Left renal calcifications.
== END 2021-11-15 09:13 | disposition home or self-care (01) ==
LOC: RAD 09:15
PROVIDERS: PCP Family Medicine; Visit Provider Urology
DX: N20.0 Calculus of kidney (principal); Z96.0 Presence of urogenital implants
CPT/HCPCS: 74018

== ENCOUNTER → 2022-01-15 13:10 | Outpatient (BNVA) | payer MEDICARE, SELFPAY | PROVIDERS: PCP Family Medicine; Referring Provider Family Medicine; Visit Provider Specialist | DX: M17.0 Bilateral primary osteoarthritis of knee (principal); M21.161 Varus deformity, not elsewhere classified, right knee; M21.162 Varus deformity, not elsewhere classified, left knee | CPT/HCPCS: 99204 ==

== ENCOUNTER 2022-01-15 14:53 | Oncology outpatient (recurring) (ONCR) | payer MEDICARE, SELFPAY ==
[2022-01-15 15:31] LABS: Basophils % 0.4 %; Eosinophils # 0.1 10^3/uL (0.0-0.8); Eosinophils % 1.5 %; Hemoglobin 12.2 g/dL (11.5-15.3); Lymphocytes # 0.8 10^3/uL (0.8-4.8); Lymphocytes % 13.6 %; Mean Corpuscular HGB Conc 32.1 g/dL (30.0-36.0); Mean Corpuscular Hemoglobin 28.6 pg (28.0-34.0); Mean Platelet Volume 11.1 fL (7.4-10.4); Monocytes # 0.7 10^3/uL (0.2-0.9); Monocytes % 11.8 %; Neutrophils # 3.99 10^3/uL (1.8-7.7); Neutrophils % 72.5 %; Nucleated Red Blood Cells % 0 %; Platelet Count 326 10^3/cmm (130-400); Red Blood Count 4.27 10^6/uL (4.1-5.3); Red Cell Distribution Width 13.9 % (12.1-15.1); White Blood Count 5.5 10^3/uL (4.0-10.0)
[2022-01-15 15:39] LABS: Alanine Aminotransferase 12 U/L (0-33); Albumin Level 3.9 g/dL (3.5-5.2); Alkaline Phosphatase 168 IU/L (35-105); Aspartate Amino Transferase 25 U/L (0-32); Blood Urea Nitrogen 23 mg/dL (8-23); Calcium 9.6 mg/dL (8.5-10.5); Carbon Dioxide 24 mmol/L (22-29); Chloride 104 mmol/L (98-107); Globulin 3.6 g/dL (1.3-4.6); Glucose 95 mg/dL (65-115); Osmolality Calculated 293 mOsm/kg (285-295); Sodium 140 mmol/L (136-145); Total Bilirubin 0.5 mg/dL (0.15-1.2); Total Protein 7.5 g/dL (6.6-8.7)
== END 2022-01-30 23:59 | disposition home or self-care (01) ==
PROVIDERS: PCP Family Medicine; Visit Provider Internal Medicine Hematology & Oncology
DX: C50.911 Malignant neoplasm of unspecified site of right female breast (principal); Z17.0 Estrogen receptor positive status [ER+]; Z79.810 Long term (current) use of selective estrogen receptor modulators (SERMs); J43.9 Emphysema, unspecified; I26.99 Other pulmonary embolism without acute cor pulmonale; N39.0 Urinary tract infection, site not specified; M25.761 Osteophyte, right knee
CPT/HCPCS: 73560; 73565; 80053; 85025; 99204; 99214

== ENCOUNTER 2022-01-15 15:27 | Outpatient (CLI) | payer MEDICARE, SELFPAY | END 2022-01-15 15:28 | disposition home or self-care (01) | LOC: SPT 15:27 | PROVIDERS: PCP Family Medicine; Visit Provider Specialist | DX: Z46.89 Encounter for fitting and adjustment of other specified devices (principal); M17.11 Unilateral primary osteoarthritis, right knee | CPT/HCPCS: 97760; L1812 ==

== ENCOUNTER → 2022-01-20 10:17 | Outpatient (BNVA) | payer MEDICARE, SELFPAY | PROVIDERS: PCP Family Medicine; Visit Provider Internal Medicine Pulmonary Disease | DX: R06.02 Shortness of breath (principal); J44.9 Chronic obstructive pulmonary disease, unspecified; I50.32 Chronic diastolic (congestive) heart failure; I27.20 Pulmonary hypertension, unspecified; I50.9 Heart failure, unspecified; Z85.3 Personal history of malignant neoplasm of breast; E78.5 Hyperlipidemia, unspecified; E03.9 Hypothyroidism, unspecified | CPT/HCPCS: 99214 ==

== ENCOUNTER → 2022-01-21 14:24 | Outpatient (BNVA) | payer MEDICARE, SELFPAY | PROVIDERS: PCP Family Medicine; Visit Provider Internal Medicine Pulmonary Disease | DX: J44.9 Chronic obstructive pulmonary disease, unspecified (principal); R06.02 Shortness of breath | CPT/HCPCS: 82785; 85025; 86003 ==

== ENCOUNTER 2022-05-26 07:21 | Oncology outpatient (recurring) (ONCR) | payer MEDICARE, SELFPAY ==
--- NOTE | 2022-05-26 07:33 | NM_ITS ---
WS: [id number] NUCLEAR MEDICINE BONE SCAN Radiopharmaceutical: 26.1 Tc-99m MDP mCi IV Injection site: antecubital Postinjection imaging delay: 1 hr CLINICAL INFORMATION: HX breast cancer COMPARISON: None. FINDINGS: Bone lesions: There are no osseous lesions suspicious for metastatic disease. Soft tissue contours: Normal. Kidneys: Delayed emptying LEFT kidney. Other findings: Degenerative uptake RIGHT knee. Degenerative type uptake both AC joints. NM/NM bone scan whole body* [id number] IMPRESSION: No evidence of osseous metastatic disease.
== END 2022-06-02 23:59 | disposition home or self-care (01) ==
LOC: RAD 07:25 → ONCMED 06-02 13:51
PROVIDERS: PCP Family Medicine; Visit Provider Internal Medicine Hematology & Oncology
DX: C50.811 Malignant neoplasm of overlapping sites of right female breast (principal); C50.111 Malignant neoplasm of central portion of right female breast
CPT/HCPCS: 78306; A9561

== ENCOUNTER 2022-06-20 08:47 | Oncology outpatient (recurring) (ONCR) | payer MEDICARE, SELFPAY | END 2022-07-02 23:59 | disposition home or self-care (01) | PROVIDERS: PCP Family Medicine; Visit Provider Internal Medicine Hematology & Oncology | DX: C50.811 Malignant neoplasm of overlapping sites of right female breast (principal); Z17.0 Estrogen receptor positive status [ER+]; C50.812 Malignant neoplasm of overlapping sites of left female breast; E87.6 Hypokalemia; J43.9 Emphysema, unspecified; I26.99 Other pulmonary embolism without acute cor pulmonale; Z79.01 Long term (current) use of anticoagulants; Z79.818 Long term (current) use of other agents affecting estrogen receptors and estrogen levels; Z79.899 Other long term (current) drug therapy | CPT/HCPCS: 99214 ==

== ENCOUNTER 2022-07-21 11:38 | Outpatient (CLI) | payer MEDICARE, SELFPAY ==
--- NOTE | 2022-07-21 12:14 | MM_ITS ---
WS: [id number] BILATERAL 3D TOMOSYNTHESIS DIGITAL DIAGNOSTIC MAMMOGRAPHY WITH CAD CLINICAL INFORMATION: Annual follow up COMPARISON: March 20, 2021 TECHNIQUE: Bilateral CC, MLO, and ML views. FINDINGS: Scattered fibroglandular densities bilaterally. Punctate and lucent centered calcifications. Dystroph ic calcifications. Vascular calcifications. Prior postoperative changes lumpectomy RIGHT breast with post therapeutic changes and skin thickening. This is unchanged in appearance compared to previous. No suspicious focal mass, asymmetry, calcifications, or architectural distortion. No evidence of son gnancy. MM/[place] [id number] IMPRESSION: BI-RADS: 2-Benign FOLLOW UP: 1 Year Follow-up Recommend return to annual diagnostic mammography.
== END 2022-07-21 11:39 | disposition home or self-care (01) ==
PROVIDERS: PCP Family Medicine; Visit Provider Internal Medicine Hematology & Oncology
DX: C50.811 Malignant neoplasm of overlapping sites of right female breast (principal); C50.111 Malignant neoplasm of central portion of right female breast; Z85.3 Personal history of malignant neoplasm of breast; R06.02 Shortness of breath; J44.9 Chronic obstructive pulmonary disease, unspecified; I50.32 Chronic diastolic (congestive) heart failure; I27.20 Pulmonary hypertension, unspecified
CPT/HCPCS: 77062; 99214; G0279

== ENCOUNTER 2022-09-18 14:02 | Oncology outpatient (recurring) (ONCR) | payer MEDICARE, SELFPAY ==
[2022-09-18 14:38] LABS: Basophils % 0.3 %; Eosinophils # 0.2 10^3/uL (0.0-0.8); Eosinophils % 3.1 %; Hematocrit 43.9 % (37.0-47.0); Lymphocytes # 1.4 10^3/uL (0.8-4.8); Lymphocytes % 23.4 %; Mean Corpuscular HGB Conc 31.9 g/dL (30.0-36.0); Mean Corpuscular Hemoglobin 29.6 pg (28.0-34.0); Mean Corpuscular Volume 92.8 fl (81-99); Mean Platelet Volume 10.2 fL (7.4-10.4); Monocytes # 0.5 10^3/uL (0.2-0.9); Monocytes % 8.5 %; Neutrophils # 3.76 10^3/uL (1.8-7.7); Neutrophils % 64.4 %; Nucleated Red Blood Cells % 0 %; Platelet Count 252 10^3/cmm (130-400); Red Blood Count 4.73 10^6/uL (4.1-5.3); Red Cell Distribution Width 13.1 % (12.1-15.1); White Blood Count 5.9 10^3/uL (4.0-10.0)
[2022-09-18 15:08] LABS: Alanine Aminotransferase 8 U/L (0-33); Albumin Level 3.7 g/dL (3.5-5.2); Alkaline Phosphatase 150 U/L (35-105); Anion Gap 10.9 (5-19); Aspartate Amino Transferase 19 U/L (0-32); Blood Urea Nitrogen 20 mg/dL (8-23); Calcium 9.5 mg/dL (8.5-10.5); Carbon Dioxide 29 mmol/L (22-29); Chloride 108 mmol/L (98-107); Creatinine Clr Calc Pharmacy 34.1946; Globulin 2.7 g/dL (1.3-4.6); Glucose 151 mg/dL (65-115); Osmolality Calculated 304 mOsm/kg (285-295); Potassium 3.9 mmol/L (3.5-5.1); Sodium 144 mmol/L (136-145); Total Bilirubin 0.3 mg/dL (0.15-1.2); Total Protein 6.4 g/dL (6.6-8.7)
== END 2022-09-30 23:59 | disposition home or self-care (01) ==
PROVIDERS: PCP Family Medicine; Visit Provider Internal Medicine Hematology & Oncology
DX: C50.111 Malignant neoplasm of central portion of right female breast (principal); Z17.0 Estrogen receptor positive status [ER+]; E87.6 Hypokalemia; J43.9 Emphysema, unspecified; I26.99 Other pulmonary embolism without acute cor pulmonale; Z79.01 Long term (current) use of anticoagulants; Z79.899 Other long term (current) drug therapy; Z92.3 Personal history of irradiation
CPT/HCPCS: 36415; 80053; 85025; 99214

== ENCOUNTER 2023-04-15 13:55 | Oncology outpatient (recurring) (ONCR) | payer MEDICARE, SELFPAY ==
[2023-04-15 14:05] VITALS: BP 157/84; PULSE 94; RESP 16; TEMP 37.1; O2SAT 94
[2023-04-15 14:33] LABS: Basophils % 0.5 %; Eosinophils # 0.2 10^3/uL (0.0-0.8); Eosinophils % 3.4 %; Hematocrit 42.6 % (36-47); Lymphocytes # 1.5 10^3/uL (0.8-4.8); Lymphocytes % 22.6 %; Mean Corpuscular HGB Conc 32.6 g/dL (30-55); Mean Corpuscular Hemoglobin 30.5 pg (27-33); Mean Corpuscular Volume 93.6 fl (85-98); Mean Platelet Volume 10.4 fL (7.4-10.4); Monocytes # 0.5 10^3/uL (0.2-0.9); Monocytes % 7.8 %; Neutrophils # 4.21 10^3/uL (1.8-7.7); Neutrophils % 65.5 %; Nucleated Red Blood Cells % 0 %; Platelet Count 271 10^3/cmm (157-399); Red Blood Count 4.55 10^6/uL (3.85-5.65); Red Cell Distribution Width 12.8 % (12.1-15.1); White Blood Count 6.42 10^3/uL (3.29-11.43)
[2023-04-15 14:43] LABS: Alanine Aminotransferase 9 U/L (0-33); Albumin Level 3.9 g/dL (3.5-5.2); Alkaline Phosphatase 137 U/L (35-105); Anion Gap 15.3 (5-19); Aspartate Amino Transferase 22 U/L (0-32); Blood Urea Nitrogen 24 mg/dL (8-23); Calcium 8.7 mg/dL (8.5-10.5); Carbon Dioxide 25 mmol/L (22-29); Chloride 106 mmol/L (98-107); Globulin 2.9 g/dL (1.3-4.6); Glucose 144 mg/dL (65-115); Osmolality Calculated 301 mOsm/kg (285-295); Potassium 4.3 mmol/L (3.5-5.1); Sodium 142 mmol/L (136-145); Total Bilirubin 0.4 mg/dL (0.15-1.2); Total Protein 6.8 g/dL (6.6-8.7)
== END 2023-05-02 23:59 | disposition home or self-care (01) ==
PROVIDERS: Internal Medicine Medical Oncology; PCP Family Medicine; Visit Provider Internal Medicine Hematology & Oncology
DX: C50.911 Malignant neoplasm of unspecified site of right female breast (principal); J43.9 Emphysema, unspecified; I26.99 Other pulmonary embolism without acute cor pulmonale; Z17.0 Estrogen receptor positive status [ER+]; Z53.9 Procedure and treatment not carried out, unspecified reason
CPT/HCPCS: 36415; 80053; 85025; 99213

== ENCOUNTER 2023-07-23 13:13 | Outpatient (CLI) | payer MEDICARE, SELFPAY ==
--- NOTE | 2023-07-23 13:26 | MM_ITS ---
WS: [id number] BILATERAL 3D TOMOSYNTHESIS DIGITAL DIAGNOSTIC MAMMOGRAPHY WITH CAD CLINICAL INFORMATION: HX OF BREAST CA COMPARISON: 07/21/2022 TECHNIQUE: Bilateral CC, MLO, and ML views. FINDINGS: Scattered fibroglandular densities bilaterally. Prior postoperative changes lumpectomy RIGHT breast w ith treatment related changes. Parenchymal volume loss RIGHT breast. Vascular calcification. Incidental punctate and lucent centered calcification. Stable dystrophic clus tered calcifications LEFT breast. No suspicious focal mass, asymmetry, calcifications, or architectural distortion. No evidence of son gnancy. IMPRESSION: MM/[place] [id number] BI-RADS: 2-Benign FOLLOW UP: 1 Year Follow-up Recommend return to annual diagnostic mammography.
== END 2023-07-23 13:14 | disposition home or self-care (01) ==
LOC: RAD 13:14
PROVIDERS: PCP Family Medicine; Visit Provider Internal Medicine Medical Oncology
DX: Z85.3 Personal history of malignant neoplasm of breast (principal)
CPT/HCPCS: 77062; G0279

== ENCOUNTER 2024-01-18 16:03 | Emergency (ER) | payer MEDICARE, SELFPAY ==
[2024-01-18 16:13] VITALS: BP 136/77; PULSE 80; RESP 16; TEMP 36.6; O2SAT 96
[2024-01-18 18:41] VITALS: BP 133/65; PULSE 82; O2SAT 93
[2024-01-18 18:44] LABS: Basophils % 0.4 %; Eosinophils # 0.2 10^3/uL (0.0-0.8); Eosinophils % 2.1 %; Hematocrit 43.7 % (36-47); Lymphocytes # 1.4 10^3/uL (0.8-4.8); Lymphocytes % 17.3 %; Mean Corpuscular HGB Conc 32.5 g/dL (30-55); Mean Corpuscular Hemoglobin 29.6 pg (27-33); Mean Platelet Volume 10.1 fL (7.4-10.4); Monocytes # 0.7 10^3/uL (0.2-0.9); Monocytes % 9.3 %; Neutrophils # 5.62 10^3/uL (1.8-7.7); Neutrophils % 70.5 %; Nucleated Red Blood Cells % 0 %; Platelet Count 334 10^3/cmm (157-399); Red Cell Distribution Width 13.6 % (12.1-15.1); White Blood Count 7.97 10^3/uL (3.29-11.43)
--- NOTE | 2024-01-18 18:47 | XRR_ITS ---
PROCEDURE INFORMATION: Exam: XR Chest Exam date and time: 01/18/2024 7:01 PM Age: 88 years old Clinical indication: Screening exam; Other screening; Additional info: Swallowed a staple, thinks it caught in throat TECHNIQUE: Imaging protocol: Radiologic exam of the chest. Views: 1 view. COMPARISON: CT angio chest w abd pel w con 10/02/2021 4:49 PM FINDINGS: Lungs: Emphysematous changes. Bibasilar atelectasis versus minimal infiltrate. Left upper lobe calcified granuloma. Pleural spaces: Unremarkable. No pleural effusion. No pneumothorax. Heart/Mediastinum: Cardiomegaly. Bones/joints: Unremarkable. XR/XR chest 1V portable [id number] IMPRESSION: 1. Cardiomegaly. 2. Emphysematous changes. 3. Bibasilar atelectasis versus minimal infiltrate. 4. Left upper lobe calcified granuloma.
--- NOTE | 2024-01-18 18:47 | XRR_ITS ---
PROCEDURE INFORMATION: Exam: XR Soft Tissue Neck Exam date and time: 01/18/2024 7:03 PM Age: 88 years old Clinical indication: Screening exam; Other; May have swallowed a staple; Additional info: Swallowed staple thinks its caught in throat TECHNIQUE: Imaging protocol: Radiologic exam of the soft tissues of the neck. COMPARISON: MI bone scan whole body* [id number] 05/26/2022 7:33 AM FINDINGS: Airway: Normal. No abnormal narrowing. Soft tissues: Negative for concern radiodense foreign body, consider further evaluation with a CT scan as clinically indicated. Bones/joints: Unremarkable. XR/XR soft tissue neck [id number] IMPRESSION: Negative for concern radiodense foreign body, consider further evaluation with a CT scan as clinically indicated.
[2024-01-18 18:53] VITALS: BP 143/70; PULSE 67; O2SAT 96
--- NOTE | 2024-01-18 19:13 | ED_ITS ---
HPI - Female Genitourinary 2 General: Chief complaint: Urogenital-Female Stated complaint: leg swelling unable to pee Time Seen by Provider: 01/18/24 18:34 History of Present Illness: Patient presents to the ER with complaints of worsening swelling in the bilateral lower extremities that she is on for sure when it started. Patient does have a history of CHF. Patient is currently on Lasix. Patient is also has chronic UTIs and within the last month finished 1 round of antibiotics where she did appear to get somewhat better but over the last 2 or 3 days she has been having more pain burning frequency and possible mild urinary retention. Patient also complains over the last couple days she went to take her medicine out of her pill cup and before she could realize that she noticed there was a staple in the bottom of her cup and she swallowed it. Patient thinks the staple was caught in her throat. Patient has no problems swallowing or breathing currently. It is feels like there is something caught in her throat. Review of Systems 2 General: Reports: 10 or more systems reviewed and unremarkable except in HPI and below PFSH ED 2 PFSH: Medical History HTN (hypertension) Breast cancer, right breast Elevated troponin Rhabdomyolysis Acute renal failure Osteopenia Hydronephrosis with urinary obstruction due to renal calculus Ureteropelvic junction (UPJ) obstruction, left Acute pyelonephritis Septic shock Hypothyroidism Hyperlipidemia Recurrent urinary tract infection Kidney stones History of bone density study (~07/2021) osteopenia History of PFTs 04/2020 obstructive ventilatory defect, normal DLCO, normal post- bronchodilator spirometry History of left heart catheterization (~11/2020) with right heart cath, PCWP 23 No significant disease in LAD, left main, circumflex or RCA EF 50% Breast cancer right breast, invasive ductal carcinoma, 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, treated with radiotherapy ending 10/2018, lumpectomy, on arimidex Asthma-COPD overlap syndrome Pulmonary hypertension RVSP 40.9 mmHg on echo 03/2020 Abnormal stress test (~07/2020) with subsequent cath without obstructive disease Shortness of Breath Congestive heart failure Diastolic, grade 1, EF 60% on echo 03/2020 History of pulmonary embolism (~2004) History of breast cancer Surgical History S/P ureteral stent placement Status post cystoscopy History of breast biopsy History of detached retina repair Status post cholecystectomy History of hysterectomy History of cataract surgery History of bunionectomy History of lumpectomy right sided Family History Mother , at age 82 Pneumonia Sister Cancer multiple myeloma Son Myocardial infarction Father , at age 67 CAD (coronary artery disease) Other Diabetes Social History Smoking and tobacco/nicotine status: never used tobacco/nicotine Second hand smoke exposure: Yes Alcohol intake: never Substance/Drug Use: never Caregiver/support person: Yes Lives independently: Yes Household members: family Marital status: / Current occupational status: retired Pets and animals: Yes Do you think of yourself as: Straight/Heterosexual Current gender identity: Female Physical Exam 2 Const: COMMON NORMALS: no acute distress, average body habitus, patient oriented x3, no limitations, healthy appearing, alert and well nourished HENMT: COMMON NORMALS: normocephalic, atraumatic, hearing grossly normal bilaterally, external ears normal, Normal external nose present and moist oral mucous membranes HEAD & SCALP: normocephalic and atraumatic NOSE: Normal external nose present EXTERNAL EAR: Yes external ears normal Neck/C-Spine: COMMON NORMALS: no JVD Chest: COMMONS NORMALS: normal inspection of the chest and normal palpation of entire chest wall Resp: COMMON NORMALS: normal respiratory effort, No retractions, No use of accessory muscles and clear to auscultation bilaterally AUSCULTATION: clear to auscultation bilaterally Cardio: COMMON NORMALS: no JVD, regular rate, regular rhythm, S1 normal heart sound present, S2 normal heart sound present, No gallops present (Cardio), No clicks present (Cardio), No murmurs present (Cardio) and No rub (Cardio) R ATE: regular rate RHYTHM: regular rhythm HEART SOUNDS: S1 normal heart sound present and S2 normal heart sound present GI: COMMON NORMALS: Normal to inspection, nondistended, normoactive bowel sounds present, Soft to palpation, non-tender, No hepatosplenomegaly present and no masses PALPATION: Yes Soft to palpation and Yes No hepatosplenomegaly present Neuro: COMMON NORMALS: patient oriented x3 SENSORIUM/ORIENTATION: Yes alert Course 2 Vital Signs: Vital signs: Vital Signs Temperature 97.8 F 01/18/24 16:13 Pulse Rate 65 01/18/24 21:18 Respiratory Rate 15 01/18/24 20:45 Blood Pressure 123/67 01/18/24 20:45 Pulse Oximetry 96 01/18/24 21:18 Oxygen Delivery Me thod Room Air 01/18/24 21:18 MDM - Female Medical Decision Making X-ray was obtained of chest and soft tissue of the neck no obvious foreign body was noted. Blood work and urinalysis was obtained 6 unremarkable other than creatinine slightly elevated 1.2 which patient significantly runs in that area and UA showed probable urinary tract infection. Patient grew out Pseudomonas on her prior when it was sensitive to Cipro. I discussed the patient is allergy to Cipro patient does not remember what it done and she is willing to try it again. Patient was given Cipro and Lasix here in ER and patient will be discharged home on Cipro and Lasix. Patient should follow-up with her PCP for further evaluation of the feeling of a staple in her throat. Medical Records I reviewed the patient's medical records. Lab Data I reviewed the patient's lab results. 01/18/24 18:36 01/18/24 18:36 Radiology Impressions Chest X-Ray 01/18/24 18:47 IMPRESSION: 1. Cardiomegaly. 2. Emphysematous changes. 3. Bibasilar atelectasis versus minimal infiltrate. 4. Left upper lobe calcified granuloma. Soft Tissue Neck X-Ray 01/18/24 18:47 IMPRESSION: Negative for concern radiodense foreign body, consider further evaluation with a CT scan as clinically indicated. Laboratory Results WBC 7.97 10^3/uL (3.29-11.43) 01/18/24 18:36 RBC 4.80 10^6/uL (3.85-5.65) 01/18/24 18:36 Hgb 14.20 g/dL (11.27-16.99) 01/18/24 18:36 Hct 43.7 % (36-47) 01/18/24 18:36 MCV 91.0 fl (85-98) 01/18/24 18:36 MCH 29.6 pg (27-33) 01/18/24 18:36 MCHC 32.5 g/dL (30-55) 01/18/24 18:36 RDW 13.6 % (12.1-15.1) 01/18/24 18:36 Plt Count 334 10^3/cmm (157-399) 01/18/24 18:36 MPV 10.1 fL (7.4-10.4) 01/18/24 18:36 Neut % (Auto) 70.5 % 01/18/24 18:36 Lymph % (Auto) 17.3 % 01/18/24 18:36 Hardeman % (Auto) 9.3 % 01/18/24 18:36 Eos % (Auto) 2.1 % 01/18/24 18:36 Baso % (Auto) 0.4 % 01/18/24 18:36 Neut # (Auto) 5.62 10^3/uL (1.8-7.7) 01/18/24 18:36 Lymph # (Auto) 1.4 10^3/uL (0.8-4.8) 01/18/24 18:36 Hardeman # (Auto) 0.7 10^3/uL (0.2-0.9) 01/18/24 18:36 Eos # (Auto) 0.2 10^3/uL (0.0-0.8) 01/18/24 18:36 Baso # (Auto) 0.0 10^3/uL (0.0-0.1) 01/18/24 18:36 Nucleated RBC % (auto) 0 % 01/18/24 18:36 Nucleated RBCs # 0.0 /100WBC 01/18/24 18:36 Sodium 145 mmol/L (136-145) 01/18/24 18:36 Potassium 3.9 mmol/L (3.5-5.1) 01/18/24 18:36 Chloride 108 mmol/L (98-107) H 01/18/24 18:36 Carbon Dioxide 26 mmol/L (22-29) 01/18/24 18:36 Anion Gap 14.9 (5-19) 01/18/24 18:36 BUN 21 mg/dL (8-23) 01/18/24 18:36 Creatinine 1.2 mg/dL (0.5-0.9) H 01/18/24 18:36 GFR Calculation Not Reportable 01/18/24 18:36 Glucose 114 mg/dL (65-115) 01/18/24 18:36 Calculated Osmolality 304 mOsm/kg (285-295) H 01/18/24 18:36 Calcium 9.8 mg/dL (8.5-10.5) 01/18/24 18:36 Total Bilirubin 0.5 mg/dL (0.15-1.2) 01/18/24 18:36 AST 16 U/L (0-32) 01/18/24 18:36 ALT 7 U/L (0-33) 01/18/24 18:36 Alkaline Phosphatase 140 U/L (35-105) H 01/18/24 18:36 NT-Pro-B Natriuret Pep 123 pg/mL (0-450) 01/18/24 18:36 Total Protein 7.7 g/dL (6.6-8.7) 01/18/24 18:36 Albumin 4.0 g/dL (3.5-5.2) 01/18/24 18:36 Globulin 3.7 g/dL (1.3-4.6) 01/18/24 18:36 Urine Color Yellow (Yellow) 01/18/24 19:40 Urine Appearance Cloudy (CLEAR) A 01/18/24 19:40 Urine pH 9 (5-7) H 01/18/24 19:40 Ur Specific Edwards 1.010 (1.005-1.030) 01/18/24 19:40 Urine Protein 3+ (Negative) H 01/18/24 19:40 Urine Glucose (UA) Norm (Normal) 01/18/24 19:40 Urine Ketones 1+ (Negative) H 01/18/24 19:40 Urine Blood 2+ (Negative) H 01/18/24 19:40 Urine Nitrate Negative (Negative) 01/18/24 19:40 Urine Bilirubin Neg (Negative) 01/18/24 19:40 Prot Sulfosalicylic Acd Positive (Negative) 01/18/24 19:40 Urine Urobilinogen Neg mg/dL (Negative) 01/18/24 19:40 Ur Leukocyte Esterase 2+ (Negative) H 01/18/24 19:40 Urine RBC 25-40 /hpf (0-2) H 01/18/24 19:40 Urine WBC 5-10 /hpf (0-5) H 01/18/24 19:40 Ur Squamous Epith Cells None /hpf (0-5) 01/18/24 19:40 Amorphous Sediment Not Reportable 01/18/24 19:40 Urine Bacteria 4+ /hpf (NONE) H 01/18/24 19:40 Urine Mucus 2+ /hpf 01/18/24 19:40 All radiology interpretation(s) finalized by discharge Discharge Plan Discharge Patient Disposition: Home Clinical Impression: Globus sensation Urinary tract infection Qualifiers: Urinary tract infection type: acute cystitis Hematuria presence: with hematuria Qualified Code(s): N30.01 - Acute cystitis with hematuria Edema Qualifiers: Edema type: localized Qualified Code(s): R60.0 - Localized edema Condition: Stable Prescriptions: New ciprofloxacin HCl 500 mg tablet 500 mg PO Q12H Qty: 20 0RF No Action isosorbide mononitrate 30 mg tablet extended release 24 hr 30 mg PO DAILY furosemide 20 mg tablet 20 mg PO DAILY PRN (Reason: edema) potassium chloride 10 mEq tablet extended release 10 meq PO DAILY PRN (DME) hinged knee brace See Rx Instructions .Route .MEDSUPPLY Qty: 1 0RF Rx Instructions: As directed acetaminophen [Tylenol] 325 mg tablet 325 mg PO QID PRN warfarin 2.5 mg tablet 2.5 mg PO DAILY fluticasone propion-salmeterol [Advair Diskus] 250-50 mcg/dose blister with device 1 inh inhalation BID PRN tramadol 50 mg tablet 50 mg PO BID PRN anastrozole 1 mg tablet 1 mg PO BEDTIME Qty: 90 0RF montelukast [Singulair] 10 mg tablet 10 mg PO DAILY Qty: 30 3RF atorvastatin 10 mg tablet 10 mg PO BEDTIME Qty: 90 3RF levothyroxine 75 mcg tablet 75 mcg PO QAM Discharge Orders: Discharge ED (Routine); Ordered 01/18/24 Ordered By: Lavell Steiner Patient Instructions: Urinary Tract Infection - Women, Edema (ED) Activity Restrictions/Additional Instructions: Physical exam was performed lab work was obtained that included blood work urinalysis and x-ray of your neck and chest, lab work did not show anything remarkable other than urinary tract infection. We will treat this with antibiotics. We will treat your swelling with an increase of your Lasix to 40 mg in the morning for the next 5 days then you will go back down to your standard dose of 20 mg. The x-ray of your neck and chest did not show any stable that he may have swallowed. If the feeling that the staple is still there continues please follow-up with your family practice physician for further evaluation and treatment. You may benefit from an EGD to actually visualize your your throat. Coding Level of Care Code ED Worm Raiser for Selvin Broussard
[2024-01-18 19:17] LABS: Alanine Aminotransferase 7 U/L (0-33); Alkaline Phosphatase 140 U/L (35-105); Anion Gap 14.9 (5-19); Aspartate Amino Transferase 16 U/L (0-32); Blood Urea Nitrogen 21 mg/dL (8-23); Calcium 9.8 mg/dL (8.5-10.5); Carbon Dioxide 26 mmol/L (22-29); Chloride 108 mmol/L (98-107); Creatinine Clr Calc Pharmacy 31.1608; Globulin 3.7 g/dL (1.3-4.6); Glucose 114 mg/dL (65-115); NT Pro B Type Natriuretic Pept 123 pg/mL (0-450); Osmolality Calculated 304 mOsm/kg (285-295); Potassium 3.9 mmol/L (3.5-5.1); Sodium 145 mmol/L (136-145); Total Bilirubin 0.5 mg/dL (0.15-1.2); Total Protein 7.7 g/dL (6.6-8.7)
[2024-01-18 20:14] LABS: Add Urine Microscopic? YES; Bilirubin Urine Neg (Negative); Blood Urine 2+ (Negative); Glucose Urine UA Norm (Normal); Ketones Urine 1+ (Negative); Leukocyte Esterase Urine 2+ (Negative); Nitrate Urine Negative (Negative); Protein Urine 3+ (Negative); Urine Appearance Cloudy (CLEAR); Urine Color Yellow (Yellow); Urobilinogen Urine Neg (Negative); pH Urine 9 (5-7)
[2024-01-18 20:15] LABS: Sulfosalicylic Acid Urine Positive (Negative)
[2024-01-18 20:16] LABS: Add Urine Culture? Yes; Bacteria Urine 4+ /hpf; Mucus Urine 2+ /hpf; RBC Urine 25-40 /hpf (0-2)
[2024-01-18 20:45] VITALS: BP 123/67; PULSE 61; RESP 15; O2SAT 96
[2024-01-18 21:18] VITALS: PULSE 65; O2SAT 96
[2024-01-18] MEDS: FUROsemide 40 mg Tablet PO (21:34)
[2024-01-18] MEDS: ciprofloxacin 500 mg Tablet PO (21:34)
[2024-01-18 23:44] VITALS: BP 114/55; PULSE 63; O2SAT 96
== END 2024-01-18 23:46 | disposition home or self-care (01) ==
PROVIDERS: Emergency Medicine; Emergency Provider Emergency Medicine
DX: N30.01 Acute cystitis with hematuria (principal); F45.8 Other somatoform disorders; R60.0 Localized edema; Z79.01 Long term (current) use of anticoagulants; Z77.22 Contact with and (suspected) exposure to environmental tobacco smoke (acute) (chronic); Z85.3 Personal history of malignant neoplasm of breast; E78.5 Hyperlipidemia, unspecified; Z87.440 Personal history of urinary (tract) infections; J44.9 Chronic obstructive pulmonary disease, unspecified; I11.0 Hypertensive heart disease with heart failure; I50.30 Unspecified diastolic (congestive) heart failure
CPT/HCPCS: 70360; 71045; 80053; 81001; 83880; 85025; 85610; 87077; 87086; 99284